=== PATIENT | male | born 1945 | race Caucasian/White ===

== ENCOUNTER 2022-11-07 12:06 | Outpatient (AMB) | payer MEDICARE, OTHER, SELFPAY ==
[2022-11-07 12:11] VITALS: BP 126/61; PULSE 67; BMI 35.0
--- NOTE | 2022-11-07 12:11 | A.OFFVIS_ITS ---
Intake Vital Signs 11/07/22 12:11 Height 5 ft 8 in Weight 230 lb BMI 35.0 BP 126/61 Blood Pressure Location Rt brachial Position Sitting Pulse 67 Intake Visit Reasons: Painful lump right arm, ? glass Intake Note: Patient here for non healing lesion on Rt forearm. Has been present for 3wks. Patient thinks there is a piece of glass embedded. Patient thinks glass has been there for 30yrs. No hx of skin ca. Ship Cleaner Required: No Accompanied by: Spouse Allergies No Known Allergies Allergy (Verified 11/07/22 12:14) HPI HPI Comments History of Present Illness Details Patient presents with for evaluation of a back of mid right forearm mass which is increasing in size, become more symptomatic. He wished to have excised. Patient has a very involved past medical history. Among other things his history of atrial fibrillation, and is on Eliquis for this. He also receives hemodialysis Saturday, Saturday, and Saturday via a left upper arm fistula. Chart was reviewed and patient evaluated [facility] Medical History (Updated 11/07/22 @ 12:19 by KIET Alvares) Congestive heart disease Dialysis complication DM type 2 (diabetes mellitus, type 2) Gallbladder calculus Kidney failure Low blood pressure Surgical History (Updated 11/07/22 @ 12:32 by Des Boland MD) History of tonsillectomy and adenoidectomy History of umbilical hernia repair Family History (Updated 11/07/22 @ 12:20 by KIET Alvares) Maternal Grandmother Pancreatic cancer Mother Diabetes type 2, controlled Social History (Updated 11/07/22 @ 12:21 by KIET Alvares) Alcohol intake: never Patient Tobacco Use Status: Never used Tobacco Physical Exam Vital Signs: Last Vital Signs Pulse 67 11/07/22 12:11 BP 126/61 11/07/22 12:11 BMI result Body Mass Index 35.0 Chest Other: Chest breath sounds bilaterally, HS 1 in 2 GI Other: Abdomen corpulent, soft, benign Extrem Other: Approximately 3 x 2 cm right midforearm 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 No axillary adenopathy. Left upper arm fistula with palpable thrill. Assessment & Plan Assessment & Plan (1) Skin neoplasm: Code(s): D49.2 - Neoplasm of unspecified behavior of bone, soft tissue, and skin Plan Risks, benefits, alternatives of wide local excision of right dorsal forearm tumor were reviewed the patient is included but not limited to bleeding, infection, recurrence, numbness, pain, scarring the patient wishes to proceed. All questions were answered. Arrangements will be made for this on non dialysis days, Saturday or . Will also have patient call his brokerage branch manager as will we regarding holding his Eliquis before the procedure. Coding Level of Care Code New Pt Level 4 (61323) Diagnoses Skin neoplasm D49.2
== END 2022-11-07 12:30 | disposition home or self-care (01) ==
PROVIDERS: PCP Internal Medicine; Visit Provider Surgery
DX: D49.2 Neoplasm of unspecified behavior of bone, soft tissue, and skin (principal)
CPT/HCPCS: 99204

== ENCOUNTER → 2022-11-07 12:06 | Outpatient (BNVA) | payer MEDICARE, OTHER, SELFPAY | PROVIDERS: PCP Internal Medicine; Visit Provider Surgery | DX: D49.2 Neoplasm of unspecified behavior of bone, soft tissue, and skin (principal) | CPT/HCPCS: 99202 ==

== ENCOUNTER 2022-11-20 07:29 | Day surgery (SDC) | payer MEDICARE, OTHER, SELFPAY ==
--- NOTE | 2022-11-19 09:45 | MHC.SHP ---
Pre-Procedural Eval Section A Date of Service: 11/19/22 The patient is an INPATIENT: No Changes since office visit: No Cold of Flu in the past 2 weeks, No New Medical Problems, No Changes in Medication and No Patient answered all questions The History & Physical has been completed within 30 days and I have reviewed it.: Yes Section B Chief Complaint: Neoplasm of unspecified behavior of bone, soft tis Allergies: Allergies Allergy/AdvReac Type Severity Reaction Status Date / Time No Known Allergies Allergy Verified 11/07/22 12:14 Plan I have reviewed the history and physical and performed a pertinent physical examination on my patient. No changes have occurred unless specified. Time Spent With Patient Time: Total time managing care of this patient today ____ minutes.
--- NOTE | 2022-11-19 09:47 | HO.ANESPROP2 ---
Documented by User: Terri Martínez NP 11/19/22 09:57 HPI - Anesthesia Eval Consult details Narrative: 77yo M for Right Wide Local Excision forearm Lipoma ESRD with HD on MWF Eliquis for afib (ok to hold per cardiology and renal) PMFSH Active Problems Active Problems: All Active Problems (Updated 11/07/22 @ 12:32 by Des Boland MD) Skin neoplasm (Acute) Past Medical History Medical History Afib Congestive heart disease Dialysis complication DM type 2 (diabetes mellitus, type 2) ESRD (end stage renal disease) Gallbladder calculus HLD (hyperlipidemia) HTN (hypertension) Kidney failure Low blood pressure NSVT (nonsustained ventricular tachycardia) ELIF (obstructive sleep apnea) Family History Family History Maternal Grandmother Pancreatic cancer Mother Diabetes type 2, controlled Surgical History Surgical History History of tonsillectomy and adenoidectomy History of umbilical hernia repair Social History Social History Alcohol intake: never Patient Tobacco Use Status: Never used Tobacco Advance Directives: No Advance Directives Information Provided: Yes Nutrition Risks: No Nutritional Risk Meds Allergies Allergy/AdvReac Type Severity Reaction Status Date / Time No Known Allergies Allergy Verified 11/20/22 08:07 Active Medications: Current Medications Cefazolin Sodium/Dextrose (Ancef) 2 gm in 50 mls @ 100 mls/hr IV PREOP ONE Stop: 11/19/22 10:14 Home Medications Medication Instructions Recorded Confirmed Last Taken Type apixaban 2.5 mg tablet (Eliquis) 2.5 mg PO BID 11/07/22 11/20/22 11/17/22 History atorvastatin 40 mg tablet 40 mg PO DAILY 11/07/22 11/20/22 Unknown History glipizide 2.5 mg tablet, extended 2.5 mg PO DAILY 11/07/22 11/20/22 Unknown History release 24 hr glucosamine-chondroitin 250 mg-200 2 tab PO TID 11/07/22 11/20/22 Unknown History mg tablet (Osteo Bi-Flex) levothyroxine 75 mcg capsule 75 mcg PO DAILY 11/07/22 11/20/22 11/20/22 History lidocaine 4 % topical cream 1 appl topical BID 11/07/22 11/20/22 Unknown History melatonin 5 mg capsule mg PO 11/07/22 Unknown History midodrine 5 mg tablet 5 mg PO TID 11/07/22 11/20/22 Unknown History sevelamer HCl 400 mg tablet 400 mg PO TID 11/07/22 11/20/22 Unknown History Exam Exam Date and Time: November 19, 2022 0947 Narrative Narrative: Holter 09/2022 NSR with SB. First deg AV block. Rare PACs. Freq PVCs with rare vent bi/trigeminy. No pauses ECHO 03/2022 LV mildly dilated. Borderline concentric LVH. Nml systolic function. No focal hypokinesis. LVEF 55-60%. Indeterminate diastolic function Mildly enlarged RV size. Nml RV systolic function. PASP 32 Severely dilated LA. Moderately dilated RA. No hemodynamically significant valve disease Asc aorta @ 3.9cm LVEF has improved c/w 08/2021 echo EKG 02/2022 afib @ 68 LAD ? Anterolat infarct Assessment and Plan Assessment Anesthesia Assessment: Chart Reviewed Documented by User: Libertad Tariq MD 11/20/22 08:29 [facility] Past Medical History Medical History Afib Congestive heart disease Dialysis complication DM type 2 (diabetes mellitus, type 2) ESRD (end stage renal disease) Gallbladder calculus HLD (hyperlipidemia) HTN (hypertension) Kidney failure Low blood pressure NSVT (nonsustained ventricular tachycardia) ELIF (obstructive sleep apnea) Family History Family History Maternal Grandmother Pancreatic cancer Mother Diabetes type 2, controlled Surgical History Surgical History History of tonsillectomy and adenoidectomy History of umbilical hernia repair History of Problems with Anesthesia: No Social History Social History Alcohol intake: never Patient Tobacco Use Status: Never used Tobacco Advance Directives: No Advance Directives Information Provided: Yes Nutrition Risks: No Nutritional Risk Meds Allergies Allergy/AdvReac Type Severity Reaction Status Date / Time No Known Allergies Allergy Verified 11/20/22 08:07 Home Medications Medication Instructions Recorded Confirmed Last Taken Type apixaban 2.5 mg tablet (Eliquis) 2.5 mg PO BID 11/07/22 11/20/22 11/17/22 History atorvastatin 40 mg tablet 40 mg PO DAILY 11/07/22 11/20/22 Unknown History glipizide 2.5 mg tablet, extended 2.5 mg PO DAILY 11/07/22 11/20/22 Unknown History release 24 hr glucosamine-chondroitin 250 mg-200 2 tab PO TID 11/07/22 11/20/22 Unknown History mg tablet (Osteo Bi-Flex) levothyroxine 75 mcg capsule 75 mcg PO DAILY 11/07/22 11/20/22 11/20/22 History lidocaine 4 % topical cream 1 appl topical BID 11/07/22 11/20/22 Unknown History melatonin 5 mg capsule mg PO 11/07/22 Unknown History midodrine 5 mg tablet 5 mg PO TID 11/07/22 11/20/22 Unknown History sevelamer HCl 400 mg tablet 400 mg PO TID 11/07/22 11/20/22 Unknown History Exam Airway Mallampati Class: III TM Dist: >3cm Neck ROM: Full Loose/Missing/Broken Teeth: No Heart: irreg irregular rhythm Lungs: CTA Assessment and Plan Assessment Anesthesia Assessment: Anesthesia Plan Discussed Final Anesthetic Review History of Problems with Anesthesia: No NPO: Yes ASA Class: IV Final Preanesthetic Review: Meds/Allgs Chart Reviewed, Consent Obtained/Reviewed and Anes Risks/Benef Reviewed Patient Risk: High Procedure Risk: Low Anesthetic Plan Anesthetic Plan: MAC: Disposition: Standard PACU
[2022-11-20 06:01] VITALS: BMI 35.0
[2022-11-20 07:51] LABS: Glucose, Whole Blood 118 mg/dL (60-115)
[2022-11-20 08:06] VITALS: BP 125/56; PULSE 77; RESP 18; TEMP 36.6; O2SAT 99
[2022-11-20] MEDS: 0.9 % Sodium Chloride 1,000 ML 50 ML IVCONT (08:10)
[2022-11-20 08:18] LABS: Anion Gap 20 (12-20); Carbon Dioxide 28 mmol/L (22-29); Chloride 99 mmol/L (96-108); Potassium 4.6 mmol/L (3.3-5.1); Sodium 142 mmol/L (135-145)
--- NOTE | 2022-11-20 09:11 | P.CONAN_ITS ---
[facility] Active Problems Active Problems: All Active Problems (Updated 11/07/22 @ 12:32 by Des Boland MD) Skin neoplasm (Acute) Past Medical History Medical History Afib Congestive heart disease Dialysis complication DM type 2 (diabetes mellitus, type 2) ESRD (end stage renal disease) Gallbladder calculus HLD (hyperlipidemia) HTN (hypertension) Kidney failure Low blood pressure NSVT (nonsustained ventricular tachycardia) ELIF (obstructive sleep apnea) Family History Family History Maternal Grandmother Pancreatic cancer Mother Diabetes type 2, controlled Surgical History Surgical History History of tonsillectomy and adenoidectomy History of umbilical hernia repair History of Problems with Anesthesia: No Social History Social History Alcohol intake: never Patient Tobacco Use Status: Never used Tobacco Advance Directives: No Advance Directives Information Provided: Yes Nutrition Risks: No Nutritional Risk Meds Allergies Allergy/AdvReac Type Severity Reaction Status Date / Time No Known Allergies Allergy Verified 11/20/22 08:07 Active Medications: Current Medications Acetaminophen (Acetaminophen 325 Mg Tablet) 650 mg PO ONCE PRN PRN Reason: Pain, Mild (Pain Scale 1-3) Fentanyl (Fentanyl Citrate/Pf 100 Mcg/2 Ml Vial) 25 mcg IVPUSH Q5M PRN; Protocol PRN Reason: Pain, Moderate(Pain Scale 4-6) Sodium Chloride (Ns) 1,000 mls @ 50 mls/hr IVCONT .Q20H [place] Last Admin: 11/20/22 08:10 Dose: 50 mls/hr Ondansetron HCl (Ondansetron Hcl 4 Mg/2 Ml Vial) 4 mg IVPUSH ONCE PRN PRN Reason: Nausea and Vomiting Home Medications Medication Instructions Recorded Confirmed Last Taken Type apixaban 2.5 mg tablet (Eliquis) 2.5 mg PO BID 11/07/22 11/20/22 11/17/22 History atorvastatin 40 mg tablet 40 mg PO DAILY 11/07/22 11/20/22 Unknown History glipizide 2.5 mg tablet, extended 2.5 mg PO DAILY 11/07/22 11/20/22 Unknown History release 24 hr glucosamine-chondroitin 250 mg-200 2 tab PO TID 11/07/22 11/20/22 Unknown History mg tablet (Osteo Bi-Flex) levothyroxine 75 mcg capsule 75 mcg PO DAILY 11/07/22 11/20/22 11/20/22 History lidocaine 4 % topical cream 1 appl topical BID 11/07/22 11/20/22 Unknown History melatonin 5 mg capsule mg PO 11/07/22 Unknown History midodrine 5 mg tablet 5 mg PO TID 11/07/22 11/20/22 Unknown History sevelamer HCl 400 mg tablet 400 mg PO TID 11/07/22 11/20/22 Unknown History Exam Exam Date and Time: November 20, 2022 0911 Height,Weight and Vital Signs: Height 5 ft 8 in Weight 104.326 kg Last Vital Signs Temp 97.9 F 11/20/22 08:06 Pulse 77 11/20/22 08:06 Resp 18 11/20/22 08:06 BP 125/56 L 11/20/22 08:06 Pulse Ox 99 11/20/22 08:06 O2 Del Method Room Air 11/20/22 08:06 Pertinent Lab Results Pertinent Lab Results: Laboratory Tests 11/20/22 11/20/22 07:43 07:45 Sodium 142 Potassium 4.6 Chloride 99 Carbon Dioxide 28 Anion Gap 20 POC Glucose 118 H Airway Mallampati Class: III TM Dist: >3cm Neck ROM: Limited Loose/Missing/Broken Teeth: No Assessment and Plan Final Anesthetic Review History of Problems with Anesthesia: No
[2022-11-20 09:42] VITALS: BP 108/26; PULSE 71; RESP 16; TEMP 36.8; O2SAT 98
--- NOTE | 2022-11-20 09:42 | P.OP_ITS ---
Operative Note Operative Note Date of Service: 11/20/22 Narrative: Preoperative diagnosis: [] Dorsum right mid forearm exophytic tumor Postop diagnosis: [] Same Procedure [] wide local excision tumor of forearm Surgeon: [] Krystian Telecommunications Manager: [] Type of Anesthesia: [] Mass Indication for surgery: [] Final specimen size measured approximately 10 x 5 cm, tag and sent to pathology for permanent specimen Findings: [] Patient brought to the operating room, placed on operative table supine position, after adequate level of MAC anesthesia was induced, the right forearm was appropriately positioned and the dorsum of the forearm was prepped and draped in usual sterile fashion. Proposed wound site was infiltrated with 1% lidocaine/0.5% Marcaine. Using a transverse bi- elliptical incision encompassing the mass in question to grossly clear margins, this carried down through skin, subcutaneous tissue, appropriately tagged, and undermined using Bovie and sent to pathology. Wound was irrigated and secured hemostasis after skin flaps were developed. Wound was closed in the following manner; interrupted inverted dermal 3-0 Vicryl sutures followed by Steri-Strips and sterile dressings were applied. Sponge, needle, and instrument counts were reported to be correct. Patient tolerated the procedure well and emerged anesthesia stable condition. EBL minimal
[2022-11-20 09:57] VITALS: BP 101/34; PULSE 69; RESP 16; TEMP 36.8; O2SAT 98
== END 2022-11-20 10:32 | disposition home or self-care (01) ==
PROVIDERS: Nurse Practitioner; PCP Internal Medicine; Visit Provider Surgery
PROC: (CPT 25071; principal; 2022-11-20 09:10)
DX: C44.622 Squamous cell carcinoma of skin of right upper limb, including shoulder (principal); I48.91 Unspecified atrial fibrillation; E11.22 Type 2 diabetes mellitus with diabetic chronic kidney disease; I13.11 Hypertensive heart and chronic kidney disease without heart failure, with stage 5 chronic kidney disease, or end stage renal disease; N18.6 End stage renal disease; Z99.2 Dependence on renal dialysis; G47.33 Obstructive sleep apnea (adult) (pediatric); I47.29 Other ventricular tachycardia; E78.5 Hyperlipidemia, unspecified; Z79.84 Long term (current) use of oral hypoglycemic drugs; Z79.01 Long term (current) use of anticoagulants; Z79.899 Other long term (current) drug therapy; Z87.891 Personal history of nicotine dependence
CPT/HCPCS: 25071; 36415; 80051; 82947; 88305; 88307; J0690; J1100; J1885; J2250; J2405; J2795; J3010

== ENCOUNTER → 2022-11-20 07:29 | Outpatient (BNV) | payer MEDICARE, OTHER, SELFPAY | PROVIDERS: PCP Internal Medicine; Visit Provider Surgery | DX: C44.622 Squamous cell carcinoma of skin of right upper limb, including shoulder (principal) | CPT/HCPCS: 11606 ==

== ENCOUNTER 2022-12-03 10:48 | Outpatient (AMB) | payer MEDICARE, OTHER, SELFPAY ==
[2022-12-03 10:53] VITALS: BP 112/57; PULSE 70
--- NOTE | 2022-12-03 10:53 | MHC.OFFVIS ---
Intake Vital Signs 12/03/22 10:53 Weight 230 lb BP 112/57 L Blood Pressure Location Rt brachial Position Sitting Pulse 70 Intake Visit Reasons: S/P WLE Rt. forearm tumor Intake Note: Patient here s/p exc on Rt forearm. Reports incision healing well. Denies bleeding. C/o itch along scar line. Patient c/o new growth on Rt wrist area. Denies pain or bleeding. 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 He has no wound issues or complaints. The pathology was reviewed with patient. Incidentally, patient points out that he has a new lesion involving the dorsum of his right hand he wishes to have evaluated. 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 GI Other: Abdomen corpulent, soft, benign Extrem Other: Left upper arm fistula. Right mid forearm incision clean dry intact healing very well. Distal forearm/hand exophytic lesion, very suggestive of a squamous cell carcinoma Assessment & Plan Assessment & Plan (1) Skin neoplasm: Code(s): D49.2 - Neoplasm of unspecified behavior of bone, soft tissue, and skin (2) Skin lesion of hand: Code(s): L98.9 - Disorder of the skin and subcutaneous tissue, unspecified Plan Risks, benefits, alternatives of excision of distal dorsal forearm/right hand lesion were reviewed with the patient's included but not limited to bleeding, infection, recurrence, numbness, pain, scarring damage to proceed. All questions were answered. Arrangements made for this. Patient receives dialysis Saturday so we will attempt an operative date either Saturday or for him. Patient is also on Eliquis which will be discontinued 2 days prior to the procedure. Coding Level of Care Code Est Pt Level 4 (16683) Global (66932) Diagnoses Skin neoplasm D49.2 Skin lesion of hand L98.9
== END 2022-12-03 11:04 | disposition home or self-care (01) ==
PROVIDERS: PCP Internal Medicine; Visit Provider Surgery
DX: D49.2 Neoplasm of unspecified behavior of bone, soft tissue, and skin (principal); L98.9 Disorder of the skin and subcutaneous tissue, unspecified
CPT/HCPCS: 99024; 99214

== ENCOUNTER → 2022-12-03 10:48 | Outpatient (BNVA) | payer MEDICARE, OTHER, SELFPAY | PROVIDERS: PCP Internal Medicine; Visit Provider Surgery | DX: D49.2 Neoplasm of unspecified behavior of bone, soft tissue, and skin (principal); L98.9 Disorder of the skin and subcutaneous tissue, unspecified; Z98.890 Other specified postprocedural states | CPT/HCPCS: 99212 ==

== ENCOUNTER 2022-12-20 10:44 | Day surgery (SDC) | payer MEDICARE, OTHER, SELFPAY ==
[2022-12-17 10:56] VITALS: BMI 35.0
--- NOTE | 2022-12-19 09:19 | P.CONAN_ITS ---
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) ELIF (obstructive sleep apnea) ESRD (end stage renal disease) NSVT (nonsustained ventricular tachycardia) HLD (hyperlipidemia) HTN (hypertension) Afib Congestive heart disease Dialysis complication Kidney failure Low blood pressure DM type 2 (diabetes mellitus, type 2) Gallbladder calculus Family History Family History Maternal Grandmother Pancreatic cancer Mother Diabetes type 2, controlled Surgical History Surgical History History of surgery History of umbilical hernia repair History of tonsillectomy and adenoidectomy History of Problems with Anesthesia: No Social History Social History Alcohol intake: never Patient Tobacco Use Status: Former Tobacco user Tobacco use type: Cigarette Smoked in Last 30 Days: No Use of substances other than those prescribed or required for medical reasons: No Are you DNR?: Yes Advance Directives: No Advance Directives Information Provided: Yes Meds Allergies Allergy/AdvReac Type Severity Reaction Status Date / Time No Known Allergies Allergy Verified 12/20/22 11:54 Home Medications Medication Instructions Recorded Confirmed Last Taken Type apixaban 2.5 mg tablet (Eliquis) 2.5 mg PO BID 11/07/22 12/20/22 12/17/22 History atorvastatin 40 mg tablet 40 mg PO DAILY 11/07/22 12/17/22 Unknown History glipizide 2.5 mg tablet, extended 2.5 mg PO DAILY 11/07/22 12/17/22 Unknown History release 24 hr glucosamine-chondroitin 250 mg-200 2 tab PO TID 11/07/22 12/17/22 Unknown History mg tablet (Osteo Bi-Flex) levothyroxine 75 mcg capsule 75 mcg PO DAILY 11/07/22 12/20/22 12/20/22 History lidocaine 4 % topical cream 1 appl topical BID 11/07/22 12/17/22 Unknown History melatonin 5 mg capsule 5 mg PO BEDTIME 11/07/22 12/17/22 Unknown History midodrine 5 mg tablet 5 mg PO TID 11/07/22 12/17/22 Unknown History sevelamer HCl 400 mg tablet 400 mg PO TID 11/07/22 12/17/22 Unknown History Exam Exam Date and Time: December 19, 2022918 Height,Weight and Vital Signs: Height 5 ft 8 in Weight 104.326 kg Narrative Narrative: Holter 09/2022 NSR with SB. First deg AV block. Rare PACs. Freq PVCs with rare vent bi/trigeminy. No pauses ECHO 03/2022 LV mildly dilated. Borderline concentric LVH. Nml systolic function. No focal hypokinesis. LVEF 55-60%. Indeterminate diastolic function Mildly enlarged RV size. Nml RV systolic function. PASP 32 Severely dilated LA. Moderately dilated RA. No hemodynamically significant valve disease Asc aorta @ 3.9cm LVEF has improved c/w 08/2021 echo EKG 02/2022 afib @ 68 LAD ? 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) ELIF (obstructive sleep apnea) ESRD (end stage renal disease) NSVT (nonsustained ventricular tachycardia) HLD (hyperlipidemia) HTN (hypertension) Afib Congestive heart disease Dialysis complication Kidney failure Low blood pressure DM type 2 (diabetes mellitus, type 2) Gallbladder calculus Family History Family History Maternal Grandmother Pancreatic cancer Mother Diabetes type 2, controlled Surgical History Surgical History History of surgery History of umbilical hernia repair History of tonsillectomy and adenoidectomy Social History Social History Alcohol intake: never Patient Tobacco Use Status: Former Tobacco user Tobacco use type: Cigarette Smoked in Last 30 Days: No Use of substances other than those prescribed or required for medical reasons: No Are you DNR?: Yes Advance Directives: No Advance Directives Information Provided: Yes Meds Allergies Allergy/AdvReac Type Severity Reaction Status Date / Time No Known Allergies Allergy Verified 12/20/22 11:54 Home Medications Medication Instructions Recorded Confirmed Last Taken Type apixaban 2.5 mg tablet (Eliquis) 2.5 mg PO BID 11/07/22 12/20/22 12/17/22 History atorvastatin 40 mg tablet 40 mg PO DAILY 11/07/22 12/17/22 Unknown History glipizide 2.5 mg tablet, extended 2.5 mg PO DAILY 11/07/22 12/17/22 Unknown History release 24 hr glucosamine-chondroitin 250 mg-200 2 tab PO TID 11/07/22 12/17/22 Unknown History mg tablet (Osteo Bi-Flex) levothyroxine 75 mcg capsule 75 mcg PO DAILY 11/07/22 12/20/22 12/20/22 History lidocaine 4 % topical cream 1 appl topical BID 11/07/22 12/17/22 Unknown History melatonin 5 mg capsule 5 mg PO BEDTIME 11/07/22 12/17/22 Unknown History midodrine 5 mg tablet 5 mg PO TID 11/07/22 12/17/22 Unknown History sevelamer HCl 400 mg tablet 400 mg PO TID 11/07/22 12/17/22 Unknown History Exam Airway Mallampati Class: III TM Dist: >3cm Neck ROM: Full Loose/Missing/Broken Teeth: No Heart: irreg irregular rhythm Lungs: CTA Assessment and Plan Assessment Anesthesia Assessment: Anesthesia Plan Discussed Final Anesthetic Review NPO: Yes ASA Class: III Final Preanesthetic Review: Meds/Allgs Chart Reviewed, Consent Obtained/Reviewed and Anes Risks/Benef Reviewed Patient Risk: Intermediate Procedure Risk: Low Anesthetic Plan Anesthetic Plan: MAC: Disposition: Standard PACU
--- NOTE | 2022-12-20 06:08 | MHC.SHP ---
Pre-Procedural Eval Section A Date of Service: 12/20/22 The patient is an INPATIENT: No Changes since office visit: No Cold of Flu in the past 2 weeks, No New Medical Problems, No Changes in Medication and No Patient answered all questions The History & Physical has been completed within 30 days and I have reviewed it.: Yes Section B Chief Complaint: Disorder of the skin and subcutaneous tissue, unsp Allergies: Allergies Allergy/AdvReac Type Severity Reaction Status Date / Time No Known Allergies Allergy Verified 12/03/22 10:55 Plan I have reviewed the history and physical and performed a pertinent physical examination on my patient. No changes have occurred unless specified. Time Spent With Patient Time: Total time managing care of this patient today ____ minutes.
[2022-12-20 11:33] LABS: Anion Gap 19 (12-20); Carbon Dioxide 24 mmol/L (22-29); Chloride 100 mmol/L (96-108); Potassium 4.8 mmol/L (3.3-5.1); Sodium 138 mmol/L (135-145)
[2022-12-20 11:36] VITALS: BP 124/46; PULSE 73; RESP 18; TEMP 36.6; O2SAT 98; BMI 35.0
[2022-12-20 11:50] LABS: Glucose, Whole Blood 107 mg/dL (60-115)
[2022-12-20] MEDS: 0.9 % Sodium Chloride 1,000 ML 50 ML IVCONT (12:28)
--- NOTE | 2022-12-20 13:06 | P.OP_ITS ---
Operative Note Operative Note Date of Service: 12/20/22 Narrative: Preoperative diagnosis: [] Dorsum right hand tumor/growth Postop diagnosis: [] same Procedure [] wide local excision dorsum right hand tumor Surgeon: [] Krystian Grinding Wheel Operator: [] Type of Anesthesia: [] MAC Indication for surgery: [] final specimen size of 4 x 2.5 cm to grossly clear margins Findings: [] patient brought to the operating room, placed on the operative table in supine position, after adequate level of MAC anesthesia was induced, dorsum of right hand was prepped and draped in usual sterile fashion. Proposed incision site was infiltrated 1% lidocaine/ 0.5% Marcaine and a transverse bi- elliptical incision was made around the lesion in question to grossly clear margins with final dimensions as described above and carried through skin, subcutaneous tissue, and undermined using Bovie. Specimen was tagged sent to pathology for permanent specimen.Skin flaps were developed using Bovie and wound was irrigated, secured hemostasis, and closed using interrupted inverted dermal 3-0 Vicryl sutures followed by Steri-Strips and sterile dressings. Sponge, needle, and instrument counts reported correct. Patient tolerated procedure well and emerged anesthesia stable condition. EBL minimal
[2022-12-20 13:10] VITALS: BP 123/33; PULSE 61; RESP 18; TEMP 36.1; O2SAT 99
[2022-12-20 13:25] VITALS: BP 116/37; PULSE 63; RESP 16; O2SAT 99
[2022-12-20 13:40] VITALS: BP 128/29; PULSE 63; RESP 16; O2SAT 99
[2022-12-20 13:55] VITALS: BP 117/34; PULSE 62; RESP 16; O2SAT 99
[2022-12-20 14:10] VITALS: BP 120/33; PULSE 69; RESP 16; TEMP 36.1; O2SAT 99
== END 2022-12-20 14:35 | disposition home or self-care (01) ==
PROVIDERS: Nurse Practitioner; PCP Internal Medicine; Visit Provider Surgery
PROC: (CPT 11624; principal; 2022-12-20 13:00)
DX: C44.622 Squamous cell carcinoma of skin of right upper limb, including shoulder (principal); I48.91 Unspecified atrial fibrillation; E11.22 Type 2 diabetes mellitus with diabetic chronic kidney disease; I13.2 Hypertensive heart and chronic kidney disease with heart failure and with stage 5 chronic kidney disease, or end stage renal disease; I50.9 Heart failure, unspecified; N18.6 End stage renal disease; Z99.2 Dependence on renal dialysis; Z87.891 Personal history of nicotine dependence; Z79.84 Long term (current) use of oral hypoglycemic drugs; Z79.01 Long term (current) use of anticoagulants; Z79.899 Other long term (current) drug therapy; Z98.890 Other specified postprocedural states
CPT/HCPCS: 11624; 36415; 80051; 82947; 88305; J0690; J2250; J2795; J3010

== ENCOUNTER → 2022-12-20 10:44 | Outpatient (BNV) | payer MEDICARE, OTHER, SELFPAY | PROVIDERS: PCP Internal Medicine; Visit Provider Surgery | DX: C44.622 Squamous cell carcinoma of skin of right upper limb, including shoulder (principal) | CPT/HCPCS: 11624 ==

== ENCOUNTER 2023-01-29 09:56 | Outpatient (REF) | payer MEDICARE, OTHER, SELFPAY | END 2023-01-29 09:57 | disposition home or self-care (01) | LOC: HO.LNP 09:56 | PROVIDERS: PCP Internal Medicine; Visit Provider Surgery | DX: C44.602 Unspecified malignant neoplasm of skin of right upper limb, including shoulder (principal) | CPT/HCPCS: 11602; 88305; 99212 ==

== ENCOUNTER 2023-01-29 09:56 | Outpatient (AMB) | payer MEDICARE, OTHER, SELFPAY ==
--- NOTE | 2023-01-29 10:27 | A.OFFVIS_ITS ---
Intake Vital Signs 01/29/23 10:28 BP 122/66 Blood Pressure Location Rt brachial Position Sitting Pulse 66 Intake Visit Reasons: S/P wide local excision RT hand lesion Intake Note: Patient following up on rt hand exc. Reports scar healed well. C/o new lesion on Rt wrist. Has been present for a month. C/o enlarging and tender to touch. Separations Scientist Required: No Accompanied by: Spouse Allergies No Known Allergies Allergy (Verified 01/29/23 10:29) Medication List - Last Reconciled 01/29/23 by Des Boland MD apixaban (Eliquis) 2.5 mg PO BID atorvastatin 40 mg PO DAILY glipizide ER 2.5 mg PO DAILY glucosamine-chondroitin 250-200 mg (Osteo Bi-Flex) 2 tabs PO TID levothyroxine 75 mcg PO DAILY lidocaine 4% 1 appl topical BID melatonin 5 mg PO BEDTIME midodrine 5 mg PO TID sevelamer HCl 400 mg PO TID HPI HPI Comments History of Present Illness Details 1. Patient presents for follow-up status post excision right hand skin/squamous cell cancer. He has no wound issues or complaints. Pathology was reviewed and margins clear. 2. Patient has a new dorsum of right tsai d squamous cell lesion measuring approximately 2 x 1 cm. His increasing size, become more symptomatic. He wished to have it excised. 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) ELIF (obstructive sleep apnea) ESRD (end stage renal disease) NSVT (nonsustained ventricular tachycardia) HLD (hyperlipidemia) HTN (hypertension) Afib Congestive heart disease Dialysis complication Kidney failure Low blood pressure DM type 2 (diabetes mellitus, type 2) Gallbladder calculus Surgical History History of surgery History of umbilical hernia repair History of tonsillectomy and adenoidectomy Family History Maternal Grandmother Pancreatic cancer Mother Diabetes type 2, controlled Social History Alcohol intake: never Patient Tobacco Use Status: Former Tobacco user Tobacco use type: Cigarette Physical Exam Vital Signs: Last Vital Signs Pulse 66 01/29/23 10:28 BP 122/66 01/29/23 10:28 Skin Other: Dorsum right hand 2 x 1 cm mass consistent with a squamous cell carcinoma, similar to his other such lesions. Office Procedures Excision Details: Risks, benefits, alternatives of excision of dorsal left hand squamous cell carc inoma lesion were reviewed with the patient included but not limited to bleeding, infection, recurrence, numbness, pain, scarring the patient was to proceed. All questions were answered. Consent was signed. After appropriate positioning, patient underwent 1% lidocaine and Betadine prep and a transverse bi- elliptical incision was made around the lesion in question to grossly clear margins. Margins were tagged (long stitch superior, double stitch lateral) lesion measured approximately 3 x 2 cm. Wounds irrigated, secured hemostasis, and closed using running subcuticular 3-0 Vicryl suture followed by Steri-Strips and sterile dressings and a John wrap. Patient tolerated procedure well.. 01539-Fnedflhb scalp/neck/hands/feet/genitalia 1.1cm-2cm Procedure code (CPT) selection complete Office Meds lidocaine 1 %-epinephrine 1:100,000 injection solution Performing Provider: Des Boland MD [place] [facility] [place] [facility] Administered by: Des Boland MD on 01/29/23 10:30 Dose Route Admin Location Dispensed Lot Number Expiration Date [facility] Director Of Payroll 10 mL Infiltration 10 mL Assessment & Plan Assessment & Plan (1) Skin neoplasm: Code(s): D49.2 - Neoplasm of unspecified behavior of bone, soft tissue, and skin Plan: Patient and have been given local instructions including elevation, ice pack, may shower in 2 days removing outside dressing. Patient has a small but nonetheless potential risk of bleeding secondary to his Eliquis but at completion of procedure the wound was dry and John wrap was placed. All qu estions were answered. He will see me in a proximal weeks time or p.r.n.. Orders: Orders AMB Excision Today D49.2 - Neoplasm of unspecified behavior of bone, soft tissue, and skin Coding Level of Care Code Est Pt Level 5 (67875) Diagnoses Skin neoplasm D49.2 CPT Codes Scalp/Neck/Hands/Feet/Genetalia - CPT: 35824-Xzydmtme scalp/neck/hands/feet/genitalia 1.1cm-2cm ([id number])
[2023-01-29 10:28] VITALS: BP 122/66; PULSE 66
== END 2023-01-29 10:29 | disposition home or self-care (01) ==
PROVIDERS: PCP Internal Medicine; Visit Provider Surgery
DX: D49.2 Neoplasm of unspecified behavior of bone, soft tissue, and skin (principal); C44.92 Squamous cell carcinoma of skin, unspecified
CPT/HCPCS: 11602; 99214

== ENCOUNTER 2023-02-08 09:38 | Outpatient (AMB) | payer MEDICARE, OTHER, SELFPAY ==
[2023-02-08 09:48] VITALS: BP 116/58; PULSE 75
--- NOTE | 2023-02-08 09:48 | MHC.OFFVIS ---
Intake Vital Signs 02/08/23 09:48 Weight 239 lb BP 116/58 L Blood Pressure Location Rt brachial Position Sitting Pulse 75 Intake Visit Reasons: 1 1/2 wk follow up WLE RT hand lesion Intake Note: Patient here s/p exc on Rt ant wrist. Reports incision healing well. Denies bleeding or oozing. 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 He has no wound issues or complaints. Pathology was reviewed. 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) ELIF (obstructive sleep apnea) ESRD (end stage renal disease) NSVT (nonsustained ventricular tachycardia) HLD (hyperlipidemia) HTN (hypertension) Afib Congestive heart disease Dialysis complication Kidney failure Low blood pressure DM type 2 (diabetes mellitus, type 2) Gallbladder calculus Surgical History Hx of surgical procedure History of surgery History of umbilical hernia repair History of tonsillectomy and adenoidectomy Family History Maternal Grandmother Pancreatic cancer Mother Diabetes type 2, controlled Social History Alcohol intake: never Patient Tobacco Use Status: Former Tobacco user Tobacco use type: Cigarette Physical Exam Vital Signs: Last Vital Signs Pulse 75 02/08/23 09:48 BP 116/58 L 02/08/23 09:48 Extrem Other: Dorsum right hand incision is well healed. Assessment & Plan Assessment & Plan (1) Skin neoplasm: Code(s): D49.2 - Neoplasm of unspecified behavior of bone, soft tissue, and skin Plan Patient and have been given local instructions, and will follow-up p.r.n. Coding Level of Care Code Global (25835) Diagnoses Skin neoplasm D49.2
== END 2023-02-08 10:08 | disposition home or self-care (01) ==
PROVIDERS: PCP Internal Medicine; Visit Provider Surgery
DX: D49.2 Neoplasm of unspecified behavior of bone, soft tissue, and skin (principal)
CPT/HCPCS: 99024

== ENCOUNTER → 2023-02-08 09:38 | Outpatient (BNVA) | payer MEDICARE, OTHER, SELFPAY | PROVIDERS: PCP Internal Medicine; Visit Provider Surgery ==

== ENCOUNTER 2023-05-17 09:11 | Outpatient (REF) | payer MEDICARE, OTHER, SELFPAY ==
--- NOTE | ~2023-05-17 | XR_ITS ---
EXAMINATION: XR CHEST CLINICAL INFORMATION: Chronic heart failure COMPARISON: None available. TECHNIQUE: 2 views of the chest were obtained. FINDINGS: Interstitial prominence. Prominence of the right hilum which may reflect prominence of the pulmonary vasculature though lymphadenopathy in this region is not excluded. No pneumothorax. Trachea is midline. Cardiomediastinal silhouette is not enlarged. No large pleural effusion. Degenerative changes of the thoracolumbar spine. Soft tissues are unremarkable. XR/XR chest 2V IMPRESSION: 1. Interstitial prominence. 2. Prominence of the right hilum which may reflect prominence of the pulmonary vasculature though lymphadenopathy in this region is not excluded.
== END 2023-05-17 09:12 | disposition home or self-care (01) ==
LOC: HO.XRAY 09:11
PROVIDERS: PCP Internal Medicine
DX: I48.0 Paroxysmal atrial fibrillation (principal); I50.32 Chronic diastolic (congestive) heart failure
CPT/HCPCS: 71046

== ENCOUNTER 2023-11-22 10:06 | Emergency (ER) | payer MEDICARE, OTHER, SELFPAY ==
[2023-11-22 10:21] VITALS: BP 109/59; PULSE 92; RESP 18; TEMP 36.8; O2SAT 96; BMI 35.0
[2023-11-22] MEDS: Lidocaine HCl 1 % MPF 5 ML VIAL EPIDURAL (12:14)
--- NOTE | 2023-11-22 12:45 | ED.GENADULT ---
HPI - General Adult General Chief complaint: Extremity Injury, Lower Stated complaint: l leg lac Time Seen by Provider: 11/22/23 10:24 Source: patient, family and RN notes reviewed Mode of arrival: ambulatory Limitations: no limitations History of Present Illness ED Provider: Bharti Downey PA-C HPI narrative: This is a 78-year-old male who presents emergency department for evaluation of left leg laceration which occurred on Saturday. Patient states that while he was at dialysis he lacerated his lateral left leg. He states that he has been applying bandages, and butterfly sutures however states that this continues to bleed. He denies any fevers or chills. Patient reports that his last tetanus shot was within the last year. No other complaints or concerns at this time. MD complaint: Laceration left leg Onset (ago): day(s) Radiation: non-radiation Quality: aching Pain Consistency: constant Relieving factors: none Exacerbating factors: none Associated symptoms: denies other symptoms Treatments prior to arrival: none Related Data Home Medications ?Medication ?Instructions ?Recorded ?Confirmed apixaban 2.5 mg tablet (Eliquis) 2.5 mg PO BID 11/07/22 12/20/22 atorvastatin 40 mg tablet 40 mg PO DAILY 11/07/22 12/17/22 glipizide 2.5 mg tablet, extended 2.5 mg PO DAILY 11/07/22 12/17/22 release 24 hr glucosamine-chondroitin 250 mg-200 2 tab PO TID 11/07/22 12/17/22 mg tablet (Osteo Bi-Flex) lidocaine 4 % topical cream 1 appl topical BID 11/07/22 12/17/22 melatonin 5 mg capsule 5 mg PO BEDTIME 11/07/22 12/17/22 midodrine 5 mg tablet 5 mg PO TID 11/07/22 12/17/22 sevelamer HCl 400 mg tablet 400 mg PO TID 11/07/22 12/17/22 Previous Rx's ?Medication ?Instructions ?Recorded levothyroxine 75 mcg capsule 75 mcg PO DAILY #90 caps 08/12/23 cephalexin 250 mg capsule 250 mg PO DAILY 5 days #5 caps 11/22/23 Allergies Allergy/AdvReac Type Severity Reaction Status Date / Time oxycodone AdvReac Gastrointestinal Verified 11/22/23 10:22 Upset Review of Systems Review of Systems: Yes all other systems are reviewed and are negative Constitutional: Constitutional: Reports as per [facility] Past Medical History Attestation statement: The following information was validated with the patient. 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) ELIF (obstructive sleep apnea) ESRD (end stage renal disease) NSVT (nonsustained ventricular tachycardia) HLD (hyperlipidemia) HTN (hypertension) Afib Congestive heart disease Dialysis complication Kidney failure Low blood pressure DM type 2 (diabetes mellitus, type 2) Gallbladder calculus Surgical History Hx of surgical procedure History of surgery History of umbilical hernia repair History of tonsillectomy and adenoidectomy Family History Family History Maternal Grandmother Pancreatic cancer Mother Diabetes type 2, controlled Social History Social History Alcohol intake: never Patient Tobacco Use Status: Former Tobacco user Tobacco use type: Cigarette Advance Directives: Yes Advance Directives Information Provided: Yes Advance Directives on File: No Physical Exam ED Vital Signs: Vital Signs - 24 hr 11/22/23 10:21 Temperature 98.2 F Pulse Rate 92 Respiratory Rate 18 Blood Pressure 109/59 L Pulse Oximetry 96 Oxygen Delivery Method Room Air BMI result Body Mass Index 35.0 Const General: cooperative, comfortable and no acute distress Orientation/consciousness: patient oriented x3 Limitations: no limitations [facility] Head: Yes normal to inspection, Yes normocephalic and Yes atraumatic Ears: hearing grossly normal bilaterally General nose exam: Normal external nose present Face and sinus: Yes normal facial exam Mouth: Normal oral and palatal mucosa present, oropharynx normal and moist mucous membranes Throat: Yes posterior oropharynx normal Eyes General: appearance normal, both eyes and all related structures Eyelids: Yes eyelids normal Conjunctivae: conjunctivae normal Sclerae: sclerae normal Pupils: Equal, round and reactive pupils present EOM: EOMs intact bilaterally Neck Neck: Yes normal visual inspection, Yes full ROM and Yes no lymphadenopathy Lymphatic: no lymphadenopathy noted Chest Chest palpation & inspection: normal inspection of the chest Resp Effort & Inspection: normal respiratory effort and able to speak in complete sentences Auscultation: clear to auscultation bilaterally, no crackles, no rales, no rhonchi and no wheezes Cardio Rate: regular rate Rhythm: regular rhythm Heart sounds: S1 normal heart sound present and S2 normal heart sound present GI Inspection: Yes normal to inspection Skin Other: There is a 6 cm partial-thickness laceration/skin tear noted to the left lateral byrne, active bleeding noted. No surrounding erythema or warmth. General skin exam: no rashes or lesions noted Trauma: no lacerations or abrasions Wounds: no wounds Neuro General: patient oriented x3 and moves all extremities Cranial nerves: Yes Equal, round and reactive pupils present Extrem General: Yes normal to inspection Right upper extremity: normal to inspection Left upper extremity: normal to inspection Right lower extremity: normal to inspection Left lower extremity: normal to inspection Medications Administered Discontinued Medications Generic Name Dose Route Start Last Admin Trade Name Freq PRN Reason Stop Dose Admin Lidocaine HCl 5 ml 11/22/23 11:01 11/22/23 12:14 Lidocaine Hcl 1 % Mpf 5 Ml Vial EPIDURAL 11/22/23 11:02 5 ml ONCE ONE Administration Lidocaine HCl 5 ml 11/22/23 13:05 11/22/23 13:16 Lidocaine Hcl 1 % Mpf 5 Ml Vial INFILTRATI 11/22/23 13:06 5 ml ONCE ONE Administration Lidocaine/Epinephrine 10 ml 11/22/23 10:54 11/22/23 11:11 Lidocaine Hcl 1%/Epi 1:100,000 30 Ml Vial INFILTRATI 11/22/23 10:55 Not Given ONCE ONE Lidocaine/Epinephrine 10 ml 11/22/23 10:58 11/22/23 11:12 Lidocaine Hcl 2% Pf/Epi 1:200 10 Ml Vial INFILTRATI 11/22/23 10:59 Not Given ONCE ONE Procedures Laceration Laceration 1: Site: lower extremity Side (If applicable): left Size (cm): 6 Description: linear Depth: simple, single layer Local Anesthetic: lidocaine 1% Amount of anesthesia used (mL): 4 Pre-repair: wound explored, irrigated extensively and deep structures intact Skin layer closed with: nylon Size (cm): 5-0 Number of sutures: 6 Technique: simple, interrupted Subcutaneous layer closed with: vicryl Medical Decision Making Medical Decision Making MDM Narrative: This is a 78-year-old male who presents emergency department complaints of left leg laceration x2 days. On arrival, vital signs within normal limits. He is a 6 cm L-shaped laceration noted to his left leg. This is 2-day-old therefore full wound closure would increased risk of infection. Wound was extensively cleansed with Betadine and saline. There is a small area that continues to bleed, hemostat was applied however hemostasis was not achieved therefore 6 sutures were applied to the wound. There is 1 figure-eight stitch present. Patient tolerated procedure well without any complications or concerns. Patient stable for discharge. Differential Diagnosis Differential Diagnoses: The differential diagnosis associated with the presentation includes Laceration, abrasion, contusion, Admission/Observation Consideration of admission/observation: Escalation of care including admission/observation considered Lab Data MDM Lab Attestation statement: I reviewed the patient's lab results. Radiology Impression Discussion of test interpretation with radiology: I have reviewed the radiologist's reading. External Record Review External record reviewed: Inpatient record, Office record, Outpatient record, Prior outpatient labs, Prior outpatient radiology, Primary care record and Outside ED record Discharge Plan Discharge Clinical Impression: Laceration of leg Patient Disposition: Home, Self-Care Instructions: Laceration (ED) Additional Instructions: Your seen in the emergency department after lacerating your left leg 2 days ago. You are unable to fully close this wound as this is an old wound. We are able to stop the bleeding using sutures. Please keep area clean and dry. I am placing you on antibiotics, please take prescribed antibiotic as directed. Please have sutures removed in 8-10 days. You may return here or follow-up with your PCP. Watch for any signs of infection including but not limited to increased redness, swelling, fevers or chills. Prescriptions: New cephalexin 250 mg capsule 250 mg PO DAILY 5 Days Qty: 5 0RF No Action levothyroxine 75 mcg capsule 75 mcg PO DAILY Qty: 90 3RF Eliquis 2.5 mg tablet 2.5 mg PO BID sevelamer HCl 400 mg tablet 400 mg PO TID Rx Instructions: must administer with a meal/food glipizide 2.5 mg tablet extended release 24hr 2.5 mg PO DAILY glucosamine-chondroitin [Osteo Bi-Flex] 250-200 mg tablet 2 tab PO TID Rx Instructions: give after food/meal melatonin 5 mg capsule 5 mg PO BEDTIME midodrine 5 mg tablet 5 mg PO TID Rx Instructions: do not give last dose of day after 6PM or within 4 hrs of bedtime lidocaine 4 % cream 1 appl topical BID atorvastatin 40 mg tablet 40 mg PO DAILY Print Language: [place]an
[2023-11-22] MEDS: Lidocaine HCl 1 % MPF 5 ML VIAL INFILTRATI (13:16)
[2023-11-22 14:06] VITALS: BP 116/43; PULSE 60; RESP 16; TEMP 36.8; O2SAT 97
[2023-11-22] MEDS: Bacitracin Oint 0.9 GM PACKET 1 APPL TOPICAL (14:07)
== END 2023-11-22 14:07 | disposition home or self-care (01) ==
PROVIDERS: Emergency Provider Emergency Medicine; PCP Internal Medicine
DX: S81.812A Laceration without foreign body, left lower leg, initial encounter (principal); W22.8XXA Striking against or struck by other objects, initial encounter; Y93.89 Activity, other specified; Y92.538 Other ambulatory health services establishments as the place of occurrence of the external cause; Y99.9 Unspecified external cause status; I48.91 Unspecified atrial fibrillation; Z79.01 Long term (current) use of anticoagulants
CPT/HCPCS: 12032; 99282; 99284

== ENCOUNTER 2024-01-03 16:21 | Observation (INO) | payer MEDICARE, OTHER, SELFPAY ==
--- NOTE | 2024-01-03 | ECG_ITS ---
Test Reason : weakness Blood Pressure : / mmHG Vent. Rate : 060 BPM Atrial Rate : 060 BPM P-R Int : 214 ms QRS Dur : 108 ms QT Int : 576 ms P-R-T Axes : 076 002 068 degrees QTc Int : 576 ms Sinus rhythm with 1st degree A-V block Low voltage QRS Cannot rule out Anterior infarct , age undetermined Abnormal ECG No previous ECGs available Referred By: Joseph Hannah Electronically Signed By:KYLAH PRAKASH
--- NOTE | ~2024-01-03 | XR_ITS ---
EXAMINATION: XR CHEST CLINICAL INFORMATION: Shortness of breath. COMPARISON: Chest 05/17/2023 TECHNIQUE: Frontal view of the chest was obtained. FINDINGS: No significant abnormality is noted involving the heart, lungs, mediastinum, bony thorax or soft tissues. XR/XR chest 1V IMPRESSION: Unremarkable chest examination. Electronically signed by: Deandre Lunsford MD 01/03/2024 07:10 PM EDT RP
--- NOTE | ~2024-01-03 | XR_ITS ---
EXAMINATION: CR LEFT KNEE. CLINICAL INFORMATION: Fall. COMPARISON: None available. TECHNIQUE: 2 views of the left knee. FINDINGS: Diffuse osteopenia. No acute fracture or dislocation. Moderate size suprapatellar knee joint effusion. Severe degenerative change in the patellofemoral and medial femoral compartments with near complete loss of the joint space height, spurring, and cystic change seen. There is moderate narrowing of the lateral femoral compartment joint space height. There may be subtle chondrocalcinosis in the lateral femoral compartment. Prominent arterial vascular calcifications are seen. XR/XR knee LT 2V IMPRESSION: 1. Osteopenia. No acute fracture or dislocation. 2. Moderate-sized suprapatellar knee joint effusion. 3. 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 Electronically signed by: Nickie Cordova MD 01/03/2024 11:32 PM EDT
[2024-01-03 16:45] VITALS: BP 115/41; BP 122/60; PULSE 60; PULSE 72; RESP 18; TEMP 36.7; O2SAT 93; O2SAT 97; BMI 35.9
--- NOTE | 2024-01-03 16:52 | ED_ITS ---
HPI - Weakness General Chief complaint: Weakness Stated complaint: A&Ox4, weak, cough, poor PO intake, COVID Time Seen by Provider: 01/03/24 16:51 Source: patient and family Mode of arrival: EMS Limitations: no limitations History of Present Illness ED Provider: [facility] Narrative: Patient's history of end-stage renal disease on hemodialysis had a recent COVID 2 weeks since then been feeling weak tired coughing today patient went for dialysis was almost fell slumped down while getting into the car and out been not eating well no head strike or loss of consciousness patient not eating much since had COVID patient complaining of left knee pain after the near fall with swelling of the knee Related Data Home Medications ?Medication ?Instructions ?Recorded ?Confirmed apixaban 2.5 mg tablet (Eliquis) 2.5 mg PO BID 11/07/22 01/03/24 glucosamine-chondroitin 250 mg-200 1 tab PO TID 11/07/22 01/03/24 mg tablet (Osteo Bi-Flex) lidocaine 4 % topical cream 1 appl topical BID 11/07/22 12/17/22 melatonin 5 mg capsule 5 mg PO BEDTIME 11/07/22 12/17/22 atorvastatin 20 mg tablet 20 mg PO BEDTIME 01/03/24 01/03/24 bupropion HCl 150 mg 24 hr tablet, 150 mg PO BEDTIME 01/03/24 01/03/24 extended release sevelamer HCl 800 mg tablet 1,600 mg PO TID 01/03/24 01/03/24 torsemide 20 mg tablet 40 mg PO DIRECTED 01/03/24 01/03/24 Previous Rx's ?Medication ?Instructions ?Recorded levothyroxine 75 mcg capsule 75 mcg PO DAILY #90 caps 08/12/23 cephalexin 250 mg capsule 250 mg PO DAILY 5 days #5 caps 11/22/23 amiodarone 200 mg tablet 100 mg (1/2 x 200 mg) PO DAILY 90 12/11/23 days #45 tabs glipizide 2.5 mg tablet, extended 2.5 mg PO DAILY #90 tabs 12/11/23 release 24 hr midodrine 5 mg tablet 10 mg (2 x 5 mg) PO .COMPLEX #72 12/11/23 tabs Allergies Allergy/AdvReac Type Severity Reaction Status Date / Time oxycodone AdvReac Gastrointestinal Verified 01/03/24 16:46 Upset Review of Systems 2 Review of Systems: Yes all other systems are reviewed and are negative [facility] Past Medical History 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) ELIF (obstructive sleep apnea) ESRD (end stage renal disease) NSVT (nonsustained ventricular tachycardia) HLD (hyperlipidemia) HTN (hypertension) Afib Congestive heart disease Dialysis complication Kidney failure Low blood pressure DM type 2 (diabetes mellitus, type 2) Gallbladder calculus Surgical History Hx of surgical procedure History of surgery History of umbilical hernia repair History of tonsillectomy and adenoidectomy Family History Family History Maternal Grandmother Pancreatic cancer Mother Diabetes type 2, controlled Social History Social History Alcohol intake: former Patient Tobacco Use Status: Former Tobacco user Tobacco use type: Cigarette Smoked in Last 30 Days: No Use of substances other than those prescribed or required for medical reasons: No Advance Directives: No Advance Directives Information Provided: No Physical Exam 2 Vital Signs: Vital Signs: Last Vital Signs Temp 98.1 F 01/03/24 20:45 Pulse 70 01/03/24 20:45 Resp 18 01/03/24 20:45 BP 117/52 L 01/03/24 20:45 Pulse Ox 93 01/03/24 20:45 O2 Del Method Room Air 01/03/24 20:45 BMI result Body Mass Index 35.9 Appearance: Alert. Oriented X3. Lethargic No acute distress. Eyes: PERRLA, No Nystagmus ENT: Pharynx normal. Oral Mucosa moist Neck: Normal inspection. Neck supple. CVS: Normal heart rate and rhythm. Pulses normal. Respiratory: No respiratory distress. Equal air entry bilateral, bilateral conducted sounds+ Abdomen: Soft and nontender. Bowel sounds are present, no mass palpable, no CVA tenderness Skin: Skin warm and dry. Normal skin color. Normal skin turgor. Extremities: No lower extremity edema. No calf tenderness left knee swollen Neuro: Oriented X 3. No motor deficit. No sensory deficit.No cerebellar signs , cranial nerves II-XII intact Medications Administered Generic Name Dose Route Start Last Admin Trade Name Freq PRN Reason Stop Dose Admin Bupropion HCl 150 mg 01/03/24 23:00 01/03/24 23:28 Bupropion Hcl Xl 150 Mg Tab.Er.24h PO 150 mg BEDTIME [place] Administration Sevelamer Carbonate 1,600 mg 01/03/24 23:00 01/03/24 23:28 Sevelamer Carbonate Tablet 800 Mg Tablet PO 1,600 mg TID [place] Administration Discontinued Medications Generic Name Dose Route Start Last Admin Trade Name Freq PRN Reason Stop Dose Admin Cefuroxime Axetil 500 mg 01/03/24 19:22 01/03/24 19:50 Cefuroxime Axetil 500 Mg Tablet PO 01/03/24 19:23 500 mg ONCE ONE Administration Albuterol Sulfate 2.5 mg/ 0 mg 01/03/24 19:22 01/03/24 19:47 Albuterol/Ipratropium 3 ml INHALE 01/03/24 19:23 3.5 dose ONCE ONE Administration Guaifenesin/Codeine Phosphate 10 ml 01/03/24 19:22 01/03/24 19:50 Guaifen/Codeine Sf 200/20/10ml 10 Ml Liquid PO 01/03/24 19:23 10 ml NOW STA Administration Nystatin 1 appl 01/03/24 18:34 01/03/24 18:44 Nystatin Powder 15 Gm Bottle TOPICAL 01/03/24 18:35 1 appl ONCE ONE Administration Protocol Medical Decision Making Medical Decision Making [facility] Narrative: Patient with COVID chest x-ray negative but does have a cough with mucoid phlegm will start on Ceftin for bronchitis patient is still feeling very weak will plan for rehab placement as can not take care of him Differential Diagnosis Differential Diagnoses: The differential diagnosis associated with the presentation includes Admission/Observation Consideration of admission/observation: Escalation of care including admission/observation considered Lab Data [facility] Lab Attestation statement: I reviewed the patient's lab results. 01/03/24 17:49 01/03/24 17:49 Labs: Lab Results 01/03/24 01/03/24 Range/Units 17:49 18:10 WBC 12.1 H (4.8-10.8) X10*3/uL RBC 2.57 L (4.60-5.80) X10*6/uL Hgb 9.0 L (14.0-18.0) g/dl Hct 28.5 L (42.0-52.0) % MCV 110.9 H (80.0-98.0) fL MCH 35.0 H (27.0-33.0) pg MCHC 31.6 (31.0-36.0) g/dl RDW 14.2 (11.0-16.0) % Plt Count 113 L (160-400) X10*3/uL MPV 9.1 L (9.4-12.4) fL Immature Gran % (Auto) 0.8 H (0.0-0.4) % Neut % (Auto) 85.0 H (45-73) % Lymph % (Auto) 5.5 L (20-40) % [place] % (Auto) 7.9 (2-11) % Eos % (Auto) 0.6 (0-4) % Baso % (Auto) 0.2 (0-2) % Lymph # (Auto) 0.7 L (1.2-4.9) X10*3/uL [place] # (Auto) 1.0 (0.1-1.2) X10*3/uL Eos # (Auto) 0.1 (0.0-0.4) X10*3/uL Baso # (Auto) 0.0 (0.0-0.2) X10*3/uL Abs Immat Gran (auto) 0.10 H (0.00-0.03) X10*3/uL Absolute Neuts (auto) 10.3 H (2.0-8.3) x10*3/uL Absolute Nucleated RBC 0.000 (0.0-0.012) X10*3/uL Nucleated RBC % (auto) 0.0 (0.0-0.2) /100WBC Sodium 143 (135-145) mmol/L Potassium 4.3 (3.3-5.1) mmol/L Chloride 103 (96-108) mmol/L Carbon Dioxide 28 (22-29) mmol/L Anion Gap 16 (12-20) BUN 34 H (9-16) mg/dL Creatinine 5.92 H* (0.5-1.4) mg/dL Estim Creat Clear Calc 12.2 Estimated GFR 9 Random Glucose 154 H (60-115) mg/dL Lactic Acid 1.2 (0.5-2.0) mmol/L Calcium 9.0 (8.4-10.2) mg/dL Magnesium 2.3 (1.6-2.6) mg/dL Total Bilirubin 0.4 (0.0-1.0) mg/dL AST 8 (5-37) U/L ALT 9 (0-40) U/L Alkaline Phosphatase 86 (39-117) U/L Total Protein 6.1 L (6.5-8.0) g/dL Albumin 3.2 L (3.5-5.0) g/dL COVID-19 (YG) Positive A (Negative) COVID-19 Clin Com See Note Independent Interpretation I performed an independent interpretation of an: EKG and Plain X-Ray Interpretation: Normal sinus rhythm heart rate 60 beats per minute first-degree heart block normal axis no acute STT wave changes no acute ischemia Radiology Impression Discussion of test interpretation with radiology: I have reviewed the radiologist's reading. Radiologist Impression: [place] [id number] XRay Report Signed Patient: Jacob Ruth MR#: [id number] : 1945 Acct:[id number] Age/Sex: 78 / M ADM Date: 01/03/24 Loc: .ED Attending Dr: Ordering Physician: Joseph Hannah MD Date of Service: 01/03/24 Procedure(s): XR knee LT 2V Accession Number(s): [id number] cc: Na White MD; Joseph Hannah MD~ EXAMINATION: CR LEFT KNEE. CLINICAL INFORMATION: Fall. COMPARISON: None available. TECHNIQUE: 2 views of the left knee. FINDINGS: Diffuse osteopenia. No acute fracture or dislocation. Moderate size suprapatellar knee joint effusion. Severe degenerative change in the patellofemoral and medial femoral compartments with near complete loss of the joint space height, spurring, and cystic change seen. There is moderate narrowing of the lateral femoral compartment joint space height. There may be subtle chondrocalcinosis in the lateral femoral compartment. Prominent arterial vascular calcifications are seen. XR/XR knee LT 2V IMPRESSION: 1. Osteopenia. No acute fracture or dislocation. 2. Moderate-sized suprapatellar knee joint effusion. 3. 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 Electronically signed by: Nickie Cordova MD 01/03/2024 11:32 PM EDT RP Discharge Plan Discharge Clinical Impression: COVID-19, Acute bronchitis, Contusion of knee, left Patient Disposition: Still a Patient Prescriptions: No Action levothyroxine 75 mcg capsule 75 mcg PO DAILY Qty: 90 3RF glipizide 2.5 mg tablet extended release 24hr 2.5 mg PO DAILY Qty: 90 3RF midodrine 5 mg tablet 10 mg PO .COMPLEX Qty: 72 0RF Rx Instructions: 10 mg orally prior to dialysis (3 times per week) amiodarone 200 mg tablet 100 mg PO DAILY 90 Days Qty: 45 3RF cephalexin 250 mg capsule 250 mg PO DAILY 5 Days Qty: 5 0RF atorvastatin 20 mg tablet 20 mg PO BEDTIME torsemide 20 mg tablet 40 mg PO DIRECTED Rx Instructions: non dialysis days, sun, tues, thurs, sat. sevelamer HCl 800 mg tablet 1,600 mg PO TID bupropion HCl 150 mg tablet extended release 24 hr 150 mg PO BEDTIME Eliquis 2.5 mg tablet 2.5 mg PO BID glucosamine-chondroitin [Osteo Bi-Flex] 250-200 mg tablet 1 tab PO TID Rx Instructions: give after food/meal melatonin 5 mg capsule 5 mg PO BEDTIME lidocaine 4 % cream 1 appl topical BID Print Language: Latvian
[2024-01-03 17:53] LABS: MANUAL DIFF FLAG NO
[2024-01-03 17:56] LABS: Basophils Percent Auto 0.2 % (0-2); Eosinophils Absolute Auto 0.1 X10*3/uL (0.0-0.4); Eosinophils Percent Auto 0.6 % (0-4); Hematocrit 28.5 % (42.0-52.0); Imm Gran Pct Auto 0.8 % (0.0-0.4); Lymphocytes Absolute Auto 0.7 X10*3/uL (1.2-4.9); Lymphocytes Percent Auto 5.5 % (20-40); Mean Corpuscular HGB Conc 31.6 g/dl (31.0-36.0); Mean Platelet Volume 9.1 fL (9.4-12.4); Monocytes Percent Auto 7.9 % (2-11); Neutrophils Absolute Auto 10.3 x10*3/uL (2.0-8.3); Platelet Count 113 X10*3/uL (160-400); Red Blood Count 2.57 X10*6/uL (4.60-5.80); Red Cell Distribution Width 14.2 % (11.0-16.0); White Blood Count 12.1 X10*3/uL (4.8-10.8)
[2024-01-03 18:04] LABS: Mean Corpuscular Volume 110.9 fL (80.0-98.0)
[2024-01-03 18:12] LABS: Alanine Aminotransferase 9 U/L (0-40); Albumin Level 3.2 g/dL (3.5-5.0); Alkaline Phosphatase 86 U/L (39-117); Anion Gap 16 (12-20); Aspartate Amino Transferase 8 U/L (5-37); Bilirubin Total 0.4 mg/dL (0.0-1.0); Blood Urea Nitrogen 34 mg/dL (9-16); Carbon Dioxide 28 mmol/L (22-29); Chloride 103 mmol/L (96-108); Creatinine Clr Calc Pharmacy 12.2; Estimated Glomerular Filt Rate 9; Glucose Random 154 mg/dL (60-115); Magnesium 2.3 mg/dL (1.6-2.6); Potassium 4.3 mmol/L (3.3-5.1); Sodium 143 mmol/L (135-145); Total Protein 6.1 g/dL (6.5-8.0)
[2024-01-03 18:13] LABS: Lactic Acid 1.2 mmol/L (0.5-2.0)
[2024-01-03 18:27] VITALS: BP 114/46; PULSE 60; RESP 20; TEMP 37.7; O2SAT 95
[2024-01-03 18:28] LABS: COVID-19 Test Positive (Negative); IDNOW Serial# 152EDE1D
--- NOTE | 2024-01-03 18:28 | MHC.EDTECH ---
Patient was biba from home ,vitals taken ,ekg done and was read by Provider ,Patient was change into hospital attire ,and hooked up to surveillance monitor ,Patient 2 nd set of blood culture drawn and covid swab collected and sent to lab ,JULIA Arce is aware that Patient has fungal rash between belly folds and underneath breast ,Patient was reposition and boosted up in bed ,Patient at bedside ,call cottrell within Pt reach .
[2024-01-03] MEDS: Nystatin Powder 15 GM BOTTLE 1 APPL TOPICAL (18:44)
--- NOTE | 2024-01-03 18:44 | PC.NURSE ---
nystatin powder applied to bilateral groin folds, and under left breast
[2024-01-03] MEDS: Albuterol Sulfate 2.5 MG, Albuterol/Iprat 2.5/0.5MG 3 ML 3 ML INHALE (19:47)
[2024-01-03 19:50] VITALS: PULSE 62; RESP 16; O2SAT 93
[2024-01-03] MEDS: cefuroxime axetiL 500 MG TABLET PO (19:50)
[2024-01-03] MEDS: guaiFEN/Codeine SF 200/20/10ML 10 ML LIQUID PO (19:50)
--- NOTE | 2024-01-03 20:03 | PC.NURSE ---
reporting she would rafaela pt to stay in hospital, states he was unable to get in/out of the car/ w/c today, was too weak. does not know how she will get him home if he is this weak. MD rod
[2024-01-03 20:45] VITALS: BP 117/52; PULSE 70; RESP 18; TEMP 36.7; O2SAT 93
--- NOTE | 2024-01-03 21:24 | MHC.CM.ED ---
Pt diagnosed with Covid on Dec 15. Has been progressively weak since, no appetite, eating very little. Fell today and had a near fall. Pt has ESRD-dialysis at [facility] ER. Had full dialysis today. Pt is very frustrated with dialysis. Has been going for about 3 years. States if not for his and grandchildren, he would stop it. admits that sometimes he does not go to dialysis. Lives with his . No services. Has a walker, w/c and stair left. Per his /HCP Melinda ([phone]), he can barely walk now. Ate very little today. Pt is very begrudgingly agreeable to STR. Requesting [facility]. Referral will be made. Pt has Medicare and CIG, however [facility] is seconday. HCP is at home. PCP is verified, as is address and insurance. C/O knee pain. Dr Hannah aware of above. Will remain overnight, for PT evaluation in the morning. CM will follow for safe discharge plan.
--- NOTE | 2024-01-03 21:40 | PC.NURSE ---
med rec completed with at bedside, had rx bottles with her
[2024-01-03] MEDS: buPROPion HCl XL 150 MG TAB.ER.24H PO (23:28)
[2024-01-03] MEDS: Sevelamer Carbonate Tablet 800 MG TABLET 1600 MG PO (23:28)
[2024-01-04] MEDS: traMADoL HCL 50 MG TABLET PO (01:23)
[2024-01-04 06:34] VITALS: BP 132/55; PULSE 87; RESP 18; TEMP 36.8; O2SAT 95
--- NOTE | 2024-01-04 06:42 | MHC.EDTECH ---
Patient is a dialysis Patient has not void sincwe he came in yesterday ,rn aware ice water given .
[2024-01-04] MEDS: Levothyroxine Sodium 75 MCG TABLET PO (06:47)
[2024-01-04 09:02] VITALS: BP 120/50; PULSE 65; RESP 14; O2SAT 96
[2024-01-04] MEDS: Sevelamer Carbonate Tablet 800 MG TABLET 1600 MG PO ×3 (09:04→21:34)
[2024-01-04] MEDS: cefuroxime axetiL 500 MG TABLET PO ×2 (09:04→21:34)
[2024-01-04] MEDS: Apixaban 2.5 MG TABLET PO ×2 (09:04→21:34)
[2024-01-04] MEDS: Torsemide 20 MG TABLET 40 MG PO (09:05)
[2024-01-04] MEDS: Amiodarone HCL 200 MG TABLET 100 MG PO (09:05)
[2024-01-04] MEDS: glipiZIDE XL 2.5 MG TAB.ER.24 PO (10:15)
--- NOTE | 2024-01-04 11:04 | MHC.CM.ED ---
Review of PT eval supports placement: Pt states to contact his spouse for all d/c related questions. Discussed Medicare qualifying stay vs ED boarding. Spouse states she is still paying off his last STR stay because he exhausted his days. Spouse notes lack of finances to pay for rehab or private care at home. Will refer to Acute rehab in the interim. ED CM to contact spouse with information regarding placement.
[2024-01-04 13:23] LABS: Appearance Urine Turbid; Color Urine Yellow; Glucose Urine UA Negative (Negative); Leukocyte Esterase Urine Large (3+) (Negative); Nitrite Urine Negative (Negative); Specific Gravity - Urine 1.015 (1.005-1.025); UMIC TRIGGER UACC YES; Urine Blood Large (3+) (Negative); Urine Ketones Negative (Negative); Urine Protein 100 (2+) mg/dL (Neg-Trace)
[2024-01-04 13:36] LABS: Bacteria Urine 4+ (None Seen); Hyaline Casts Urine 0-2 /LPF (0-2); Squamous Epithelial Cell Urine 0-2 /HPF (0-2); UACC Culture Trigger YES; WBC Urine >50 /HPF (0-5)
[2024-01-04] MEDS: guaiFEN/Codeine SF 200/20/10ML 10 ML LIQUID PO (14:07)
[2024-01-04 14:35] VITALS: BP 124/55; PULSE 65; RESP 16; TEMP 36.7; O2SAT 97
[2024-01-04] MEDS: buPROPion HCl XL 150 MG TAB.ER.24H PO (21:34)
--- NOTE | 2024-01-04 21:35 | PC.NURSE ---
pt medicated per mar, tolerated well with water. pt denies pain at this time. normal sinus on tele 60-64bpm.
--- NOTE | 2024-01-04 21:39 | PC.NURSE ---
pt bedding noted to be dirty, pt assisted in bed change, warm blanket given. call cottrell within reach.
[2024-01-04 22:00] VITALS: BP 129/53; PULSE 63; RESP 17; TEMP 36.6; O2SAT 96
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
[2024-01-05 06:32] VITALS: BP 132/57; PULSE 72; RESP 18; TEMP 36.6; O2SAT 96
[2024-01-05] MEDS: Levothyroxine Sodium 75 MCG TABLET PO (06:57)
--- NOTE | 2024-01-05 06:58 | PC.NURSE ---
pt medicated per mar, tolerated well with water.
--- NOTE | 2024-01-05 07:40 | PC.NURSE ---
report recieved from previous RN, patient resting comfortably on stretcher, provided breakfast tray, denisenet denies any pain at this time, plan of care remains ongoing.
--- NOTE | 2024-01-05 08:50 | PC.NURSE ---
pharmacy called to request pt glipizide
[2024-01-05] MEDS: glipiZIDE XL 2.5 MG TAB.ER.24 PO (09:43)
[2024-01-05] MEDS: Sevelamer Carbonate Tablet 800 MG TABLET 1600 MG PO ×3 (09:44→20:38)
[2024-01-05] MEDS: Apixaban 2.5 MG TABLET PO ×2 (09:44→20:38)
[2024-01-05] MEDS: cefuroxime axetiL 500 MG TABLET PO ×2 (09:44→20:38)
[2024-01-05] MEDS: Amiodarone HCL 200 MG TABLET 100 MG PO (09:44)
[2024-01-05 09:48] VITALS: BP 134/56
[2024-01-05] MEDS: Torsemide 20 MG TABLET 40 MG PO (09:48)
--- NOTE | 2024-01-05 11:55 | MHC.CM.ED ---
Pt remains holding in the ED for STR placement. Pt does not have a Medicare qualifying stay and cannot afford private pay. Pt has been referred to acute rehab without an offer although [facility] is still reviewing. EMR reviewed: pt admitted w/WBC of 12, 2 week + COVID and on 01/03, had findings supporting a UTI. Discussed w/ED MD: no indication for INPT based on bronchitis, and po tx for UTI. Pt is due for HD on 01/05: unknown if he has new electrolyte abnormalites: last BMP was 01/02. Pt is scheduled for HD (outpt at [facility] in [place] 10 - 2p) but is likely going to miss his session. Updated pt and spouse Melinda on above. [facility] inquiring on Hep B antigen and 3 HD run sheets: [facility] is closed on Saturday and ED CM unable to retrieve requested information. ED CM to follow - will upload HD information for [facility] to review on 01/05.
--- NOTE | 2024-01-05 14:29 | PHA.MEDREC ---
Pharmacy Consult ? Medication Reconciliation Pharmacy has completed the medication reconciliation. reviewed med rec done by nursing. Used claim history to verify.
--- NOTE | 2024-01-05 15:12 | PC.NURSE ---
patient consumed 80% of lunch tray, offering no complaints at this time, medicated per MAR, patient denies any complaints at this time, resting comfortably on stretcher with TV on, callbell within reach
[2024-01-05 16:39] VITALS: BP 134/65; PULSE 66; RESP 15; TEMP 36.6; O2SAT 97
--- NOTE | 2024-01-05 19:51 | PC.NURSE ---
Assuemd care of pt. Pt lying on stretcher, no acute distress at this time. Continuing plan of care.
[2024-01-05] MEDS: buPROPion HCl XL 150 MG TAB.ER.24H PO (20:38)
--- NOTE | 2024-01-05 21:54 | PC.NURSE ---
Attempted trial ambulation of pt. pt uses walker at baseline, unable to stand without assistance at this time. Continuing with PT/CM larry, notified MD Hannah with regard to need for Dialysis in am.
[2024-01-05 22:00] VITALS: BP 136/56; PULSE 72; RESP 16; O2SAT 97
[2024-01-06 05:39] VITALS: BP 136/66; PULSE 74; RESP 17; TEMP 36.6; O2SAT 97
[2024-01-06 06:00] VITALS: BP 124/64; PULSE 72; RESP 18; O2SAT 96
[2024-01-06] MEDS: cefuroxime axetiL 500 MG TABLET PO ×2 (07:26→21:33)
[2024-01-06] MEDS: Sevelamer Carbonate Tablet 800 MG TABLET 1600 MG PO ×3 (07:26→21:33)
[2024-01-06] MEDS: Apixaban 2.5 MG TABLET PO ×2 (07:26→21:33)
[2024-01-06] MEDS: Levothyroxine Sodium 75 MCG TABLET PO (07:26)
[2024-01-06] MEDS: Amiodarone HCL 200 MG TABLET 100 MG PO (07:27)
--- NOTE | 2024-01-06 07:34 | PC.NURSE ---
Alert and oriented,denies pain or discomfort. Midodrine held at this time pending plan for dialysis, patient aware and in agreement
--- NOTE | 2024-01-06 08:47 | MHC.CM.ED ---
Addendum entered by Madelin Ly 01/06/24 13:46: Spoke with Elizabeth at [facility]. They have HD on site Sat, Sat and Saturday. Patient will need to have dialysis before coming to [facility]. If patient has HD today, they can accept patient up to 8pm tonight. Maya Weems director aware and will reach out to Devin, Will Call Order Clerk. Original Note: Patient remains in ER. HD sheets and hepatitis panel requested from [facility] in [place]. Copy of HCP from [facility] requested. [facility] still reviewing. Continue to monitor for d/c needs.
[2024-01-06] MEDS: glipiZIDE XL 2.5 MG TAB.ER.24 PO (09:34)
--- NOTE | 2024-01-06 09:58 | PC.NURSE ---
shai held d/t BP and patient without scheduled time for dialysis today , provider aware patient needs dialysis today
--- NOTE | 2024-01-06 12:38 | PC.NURSE ---
pt's reports that he is acting confused, saying he is at [employer]. For this RN, pt is AOx4, aware of person, place, time, situation. will cont to monitor
--- NOTE | 2024-01-06 13:56 | PC.NURSE ---
Addendum entered by Lila Cool RN 01/06/24 14:10: Upon reading CM note, patient has bed available at [facility], will need dialysis before discharge, CM has escalated up to their director, nursing coordinator Checo made aware patient's DC is incumbent on nephro ordering dialysis. Original Note: Assumed care of this patient at this time from main ED. Per previous RN, Nephro consult placed, to see patient in order for dialysis to be ordered. Patient placed on monitor in OVERFLOW 1, eating lunch at this time, at bedside.
[2024-01-06 14:29] VITALS: BP 150/64; PULSE 61; RESP 19; TEMP 36.4; O2SAT 94
--- NOTE | 2024-01-06 16:37 | MHC.CM.ED ---
Addendum entered by Danitza Le 01/06/24 18:25: Pt will be admitted per provider. Original Note: CM spoke with [facility] for dialysis chair tomorrow. They have chair availability tomorrow at 6:00 am and 10:30 am, but they cannot arrange transport to [facility]. They can only arrange 911 calls to return to ED. Pt often times misses a dialysis session, going 4 days between dialysis sessions. Devin Watson Batch Plant Operator aware. Will order repeats labs. CM called and spoke with Noah with the question if they could dialyze this patient on Saturday if his labs are Okay. Per [facility], they would like to review the labs and will review with MD tomorrow. CM will call [facility] if chair is needed for tomorrow. Provider, charge and primary RN aware.
[2024-01-06 16:48] LABS: Basophils Percent Auto 0.2 % (0-2); Eosinophils Absolute Auto 0.2 X10*3/uL (0.0-0.4); Eosinophils Percent Auto 1.6 % (0-4); Hematocrit 28.1 % (42.0-52.0); Hemoglobin 8.7 g/dl (14.0-18.0); Imm Gran Abs Auto 0.13 X10*3/uL (0.00-0.03); Imm Gran Pct Auto 1.3 % (0.0-0.4); Lymphocytes Absolute Auto 0.8 X10*3/uL (1.2-4.9); Lymphocytes Percent Auto 7.5 % (20-40); Mean Corpuscular Hemoglobin 34.4 pg (27.0-33.0); Mean Platelet Volume 9.5 fL (9.4-12.4); Monocytes Percent Auto 10.2 % (2-11); Neutrophils Percent Auto 79.2 % (45-73); Platelet Count 100 X10*3/uL (160-400); Red Blood Count 2.53 X10*6/uL (4.60-5.80); Red Cell Distribution Width 13.8 % (11.0-16.0); White Blood Count 10.1 X10*3/uL (4.8-10.8)
[2024-01-06 16:53] LABS: MANUAL DIFF FLAG SCAN; Mean Corpuscular Volume 111.1 fL (80.0-98.0)
[2024-01-06 17:23] LABS: Alanine Aminotransferase 8 U/L (0-40); Albumin Level 2.8 g/dL (3.5-5.0); Alkaline Phosphatase 81 U/L (39-117); Anion Gap 19 (12-20); Aspartate Amino Transferase 7 U/L (5-37); Bilirubin Total 0.4 mg/dL (0.0-1.0); Blood Urea Nitrogen 64 mg/dL (9-16); Calcium 8.9 mg/dL (8.4-10.2); Carbon Dioxide 26 mmol/L (22-29); Chloride 100 mmol/L (96-108); Creatinine Clr Calc Pharmacy 7.4; Estimated Glomerular Filt Rate 5; Glucose Random 55 mg/dL (60-115); Magnesium 2.4 mg/dL (1.6-2.6); Potassium 4.5 mmol/L (3.3-5.1); Sodium 140 mmol/L (135-145); Total Protein 5.5 g/dL (6.5-8.0)
[2024-01-06 17:30] LABS: Glucose, Whole Blood 48 mg/dL (60-115)
[2024-01-06 17:43] LABS: SLIDE REVIEW VERIFIED
--- NOTE | 2024-01-06 17:48 | PC.NURSE ---
50% Dextrose Injection 25g/50mls given per provider verbal order at 5:40pm for low blood sugar
[2024-01-06] MEDS: Dextrose 10 % 250 ML 750 ML IV ×2 (18:14→22:36)
--- NOTE | 2024-01-06 18:14 | PC.NURSE ---
Patient's labwork resulted w/ 2 criticals creat 9.75, glucose 55, bedside POC 48, PA Margareth Louis made aware, verbal order for 25g Dextrose AMP x [address] provider [address] order when able. Plan to admit patient in place.
--- NOTE | 2024-01-06 21:02 | PM.IMHP ---
History of Present Illness Date of Service: 01/06/24 <GUZMAN Carrion - Last Filed: 01/06/24 22:24> Attending physician on admission: Avril Montemayor <GUZMAN Carrion - Last Filed: 01/06/24 22:24> Chief Complaint: Missed dialysis <GUZMAN Carrion - Last Filed: 01/06/24 22:24> Pt is a 78-year-old male with a PMH significant for?paroxysmal AFib on Eliquis, HLD, [id number] type 2 diabetes, ESRD on HD M/W/F, orthostatic hypotension, hypothyroidism, and mood disorder who initially presented to the ED 3 days prior on 01/02/2023 for generalized weakness, fatigue, and poor p.o. intake after almost losing consciousness after dialysis on 01/02. Patient apparently had been recently diagnosed with COVID 2 weeks prior and since then has not been eating much and feeling much more fatigued than normal. Workup at that time was largely negative except for UTI and was started on cefuroxime. Was then placed in physician observation with plan for rehab placement as patient's is unable to take care of him at home. Case management found placement at [facility], though they will not accept him without him having his scheduled dialysis today as they are unable to arrange for transportation to dialysis today. The patient will thus be admitted into the hospital for emergent dialysis with plan to discharge and send to rehab tomorrow. Review of patient's labs from this afternoon indicate no significant electrolyte abnormalities, though do show worsening kidney function of 9.75, elevated from 5.92 on 01/03/2024. Patient also noted to be hypoglycemic with POC of 48. Patient was given 1 amp of glucagon with improvement of POC to 114, but repeat POC 2 hours later showed glucose of 48. The patient himself reports feeling lightheaded and dizzy, which is new. On Saturday patient reported he only felt weak. States has not been eating or drinking much. Otherwise has no acute medical complaints. Denies fever, chills, nausea, vomiting, abdominal pain. No chest pain/pressure, palpitations. Denies shortness or breath, difficulty breathing, cough. 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) ELIF (obstructive sleep apnea) ESRD (end stage renal disease) NSVT (nonsustained ventricular tachycardia) HLD (hyperlipidemia) HTN (hypertension) Afib Congestive heart disease Dialysis complication Kidney failure Low blood pressure DM type 2 (diabetes mellitus, type 2) Gallbladder calculus <GUZMAN Carrion - Last Filed: 01/06/24 22:24> Family History: Family History Maternal Grandmother Pancreatic cancer Mother Diabetes type 2, controlled <GUZMAN Carrion - Last Filed: 01/06/24 22:24> Surgical History: Surgical History Hx of surgical procedure History of surgery History of umbilical hernia repair History of tonsillectomy and adenoidectomy <GUZMAN Carrion - Last Filed: 01/06/24 22:24> Social History: Social History Alcohol intake: former Patient Tobacco Use Status: Former Tobacco user Tobacco use type: Cigarette Smoked in Last 30 Days: No Use of substances other than those prescribed or required for medical reasons: No Advance Directives: No Advance Directives Information Provided: No Nutrition Risks: No Nutritional Risk <GUZMAN Carrion - Last Filed: 01/06/24 22:24> Meds Allergies/Adverse reactions: Allergies Allergy/AdvReac Type Severity Reaction Status Date / Time oxycodone AdvReac Gastrointestinal Verified 01/03/24 16:46 Upset <GUZMAN Carrion - Last Filed: 01/06/24 22:24> Active Medications: Current Medications Acetaminophen (Acetaminophen 325 Mg Tablet) 650 mg PO Q6H PRN PRN Reason: Pain, Mild (Pain Scale 1-3), fever or headache Albuterol Sulfate (Albuterol Sulfate 90 Mcg 8 Gm Inhaler) 2 puff INHALE RQ4H PRN PRN Reason: Wheezing Amiodarone HCl (Amiodarone Hcl 200 Mg Tablet) 100 mg PO DAILY [facility] Last Admin: 01/06/24 07:27 Dose: 100 mg Apixaban (Apixaban 2.5 Mg Tablet) 2.5 mg PO BID [facility] Last Admin: 01/06/24 07:26 Dose: 2.5 mg Bupropion HCl (Bupropion Hcl Xl 150 Mg Tab.Er.24h) 150 mg PO BEDTIME [facility] Last Admin: 01/05/24 20:38 Dose: 150 mg Calcium Carbonate (Calcium Carbonate 750 Mg Tab.Chew) 750 mg PO Q4H PRN PRN Reason: Heartburn Cefuroxime Axetil (Cefuroxime Axetil 500 Mg Tablet) 500 mg PO BID [facility] Stop: 01/10/24 21:00 Last Admin: 01/06/24 07:26 Dose: 500 mg Glucose (Glucose Gel 15 Gm Gel..Gram.) 15 gm PO Q15M PRN; Protocol PRN Reason: per Hypoglycemia Standing Ord. Guaifenesin/Codeine Phosphate (Guaifen/Codeine Sf 200/20/10ml 10 Ml Liquid) 10 ml PO Q4H PRN PRN Reason: Cough Last Admin: 01/04/24 14:07 Dose: 10 ml Dextrose (D10) 250 mls @ 750 mls/hr IV Q15M PRN PRN Reason: per Hypoglycemia Standing Ord. Last Infusion: 01/06/24 18:14 Dose: Infused Dextrose (D10) 250 mls @ 750 mls/hr IV Q15M PRN PRN Reason: per Hypoglycemia Standing Ord. Dextrose (D10) 250 mls @ 750 mls/hr IV Q15M PRN; Protocol PRN Reason: per Hypoglycemia Standing Ord. Insulin Human Lispro (Insulin Lispro 100 Unit/Ml 3 Ml Vial) 0 unit SUBCUT QIDACHS [facility]; Protocol Levothyroxine Sodium (Levothyroxine Sodium 75 Mcg Tablet) 75 mcg PO DAILY@0630 [facility] Last Admin: 01/06/24 07:26 Dose: 75 mcg Magnesium Hydroxide (Milk Of Magnesia 30 Ml Oral.Susp) 30 ml PO DAILY PRN PRN Reason: Constipation Melatonin (Melatonin 3 Mg Tablet) 6 mg PO BEDTIME PRN PRN Reason: Insomnia Midodrine (Midodrine Hcl 10 Mg Tablet) 10 mg PO MoWeFr@0900 [facility] Last Admin: 01/06/24 09:58 Dose: Not Given Ondansetron HCl (Ondansetron Hcl 4 Mg/2 Ml Vial) 4 mg IVPUSH Q8H PRN PRN Reason: Nausea and Vomiting Sevelamer Carbonate (Sevelamer Carbonate Tablet 800 Mg Tablet) 1,600 mg PO TID [facility] Last Admin: 01/06/24 14:40 Dose: 1,600 mg Sodium Chloride (0.9 % Sodium Chloride Flush 3 Ml Syringe) 3 ml IVFLUSH [facility] Torsemide (Torsemide 20 Mg Tablet) 40 mg PO SuTuThSa@0900 [facility]; Protocol Last Admin: 01/05/24 09:48 Dose: 40 mg <GUZMAN Carrion - Last Filed: 01/06/24 22:24> Home medications: Home Medications ?Medication ?Instructions ?Recorded ?Confirmed ?Last Taken ?Type apixaban 2.5 mg tablet (Eliquis) 2.5 mg PO BID 11/07/22 01/03/24 12/17/22 History glucosamine-chondroitin 250 mg-200 1 tab PO TIDWM 11/07/22 01/05/24 Unknown History mg tablet (Osteo Bi-Flex) melatonin 5 mg capsule 5 mg PO BEDTIME 11/07/22 01/05/24 Unknown History atorvastatin 20 mg tablet 20 mg PO BEDTIME 01/03/24 01/03/24 Unknown History bupropion HCl 150 mg 24 hr tablet, 150 mg PO BEDTIME 01/03/24 01/03/24 Unknown History extended release sevelamer HCl 800 mg tablet 1,600 mg PO TID 01/03/24 01/03/24 Unknown History torsemide 20 mg tablet 40 mg PO SUTUTHSA 01/03/24 01/05/24 Unknown History midodrine 10 mg tablet 10 mg PO MOWEFR 01/05/24 01/05/24 Unknown History <GUZMAN Carrion - Last Filed: 01/06/24 22:24> Physical Exam Vital Signs and Narrative: Vital Signs: Last Vital Signs Temp 97.5 F 01/06/24 14:29 Pulse 61 01/06/24 14:29 Resp 19 01/06/24 14:29 BP 150/64 H 01/06/24 14:29 Pulse Ox 94 01/06/24 14:29 O2 Del Method Room Air 01/06/24 14:29 BMI result Body Mass Index 35.9 <GUZMAN Carrion - Last Filed: 01/06/24 22:24> General: AOx3, no acute distress Resp: CTA bilaterally CVS: S1, S2, RRR GI: +BS, NT, no distention Skin: Warm, dry Neuro: Cranial nerves II-XII grossly intact bilaterally. Motor grossly intact bilaterally, though with global weakness noted Extremities: No edema Psych: Appropriate affect <GUZMAN Carrion - Last Filed: 01/06/24 22:24> Results Labs CBC and Chem 7: 01/06/24 16:36 01/06/24 16:36 <GUZMAN Carrion - Last Filed: 01/06/24 22:24> Labs: Laboratory Results - last 24 hr 01/03/24 01/06/24 01/06/24 17:49 16:36 17:27 MCV 111.1 H MCH 34.4 H MCHC 31.0 RDW 13.8 Plt Count 100 L MPV 9.5 Immature Gran % (Auto) 1.3 H Neut % (Auto) 79.2 H Lymph % (Auto) 7.5 L [place] % (Auto) 10.2 Eos % (Auto) 1.6 Baso % (Auto) 0.2 Lymph # (Auto) 0.8 L [place] # (Auto) 1.0 Eos # (Auto) 0.2 Baso # (Auto) 0.0 Abs Immat Gran (auto) 0.13 H Absolute Neuts (auto) 8.0 Absolute Nucleated RBC 0.000 Nucleated RBC % (auto) 0.0 Smear Tech's Comments VERIFIED Smear Path Review SEE NOTE Anion Gap 19 Estim Creat Clear Calc 7.4 Estimated GFR 5 POC Glucose 48 L* Random Glucose 55 L* Calcium 8.9 Magnesium 2.4 Total Bilirubin 0.4 AST 7 ALT 8 Alkaline Phosphatase 81 Total Protein 5.5 L Albumin 2.8 L <GUZMAN Carrion Last Filed: 01/06/24 22:24> Assessment and Plan (1) End stage chronic kidney disease: Status: Acute <GUZMAN Carrion Last Filed: 01/06/24 22:24> Pt is a 78-year-old male with a PMH significant for?paroxysmal AFib on Eliquis, HLD, [id number] type 2 diabetes, ESRD on HD M/W/F, orthostatic hypotension, hypothyroidism, and mood disorder who initially presented to the ED 3 days prior on 01/02/2023 for generalized weakness, fatigue, and poor p.o. intake after almost losing consciousness after dialysis on 01/02. Was initially placed into physician observation awaiting STR placement. The patient is being admitted into the hospital for emergent dialysis with plan to discharge and send to rehab tomorrow. ESRD On HD M/W/F Missed dialysis today, needs dialysis prior to discharge to SNF Elevated creatinine today, electrolytes WNL Pt takes midodrine 10 mg prior to HD Continue torsemide Nephrology consult Monitor on telemetry Follow BMP Hypoglycemia Patient has been persistently hypoglycemic today as low as 48 despite administration of glucose [address] on D5 at 75 mls/hr Likely secondary to continuing glipizide in the setting of reduced p.o. intake Hold glipizide POC q.2h UTI Started on cefuroxime 500 mg b.i.d. on 01/04/2024 Stop on 01/10/2024 at 21:00 Paroxysmal AFib Continue amiodarone, Eliquis Hypothyroidism Continue levothyroxine Mood disorder Continue bupropion Full Code Attending:?Dr. Camarena DVT Prophylaxis: On Eliquis Patient will be admitted to the hospital under observation in order to receive emergent dialysis prior to discharge to STR. <GUZMAN Carrion - Last Filed: 01/06/24 22:24> Pt is a 78-year-old male with a PMH significant for?paroxysmal AFib on Eliquis, HLD, [id number] type 2 diabetes, ESRD on HD M/W/F, orthostatic hypotension, hypothyroidism, and mood disorder who initially presented to the ED 3 days prior on 01/02/2023 for generalized weakness, fatigue, and poor p.o. intake after almost losing consciousness after dialysis on 01/02. Was initially placed into physician observation awaiting STR placement. The patient is being admitted into the hospital for emergent dialysis with plan to discharge and send to rehab tomorrow. Generalized Weakness due to debility Awaiting STR placement ESRD On HD M/W/F Missed dialysis today, needs dialysis prior to discharge to SNF Elevated creatinine today, electrolytes WNL Pt takes midodrine 10 mg prior to HD Continue torsemide Nephrology consult Monitor on telemetry Follow BMP Hypoglycemia Patient has been persistently hypoglycemic today as low as 48 despite administration of glucose [address] on D5 at 75 mls/hr Likely secondary to continuing glipizide in the setting of reduced p.o. intake Hold glipizide POC q.2h UTI Started on cefuroxime 500 mg b.i.d. on 01/04/2024 Stop on 01/10/2024 at 21:00 Paroxysmal AFib Continue amiodarone, Eliquis Hypothyroidism Continue levothyroxine Mood disorder Continue bupropion Full Code Attending:?Dr. Camarena DVT Prophylaxis: On Eliquis Patient will be admitted to the hospital under observation in order to receive emergent dialysis prior to discharge to [facility]. <Avril Montemayor MD - Last Filed: 01/06/24 22:26> Quality Stroke Does the patient have a stroke diagnosis?: No <GUZMAN Carrion - Last Filed: 01/06/24 22:24> VTE Prior VTE?: No <GUZMAN Carrion - Last Filed: 01/06/24 22:24> VTE Risk Level:: Medical - moderate - high <GUZMAN Carrion - Last Filed: 01/06/24 22:24> VTE Device Contraindication: Treatment Not Indicated <GUZMAN Carrion - Last Filed: 01/06/24 22:24> VTE Drug Contraindication: N/A - Med Ordered <GUZMAN Carrion - Last Filed: 01/06/24 22:24>
[2024-01-06 21:05] VITALS: BP 126/56; PULSE 64; RESP 16; TEMP 37.1; O2SAT 96
[2024-01-06 21:17] LABS: Glucose, Whole Blood 48 mg/dL (60-115)
[2024-01-06 21:17] LABS: Glucose, Whole Blood 114 mg/dL (60-115)
[2024-01-06] MEDS: buPROPion HCl XL 150 MG TAB.ER.24H PO (21:33)
[2024-01-06] MEDS: guaiFEN/Codeine SF 200/20/10ML 10 ML LIQUID PO (21:34)
[2024-01-06] MEDS: Glucose Gel 15 GM GEL..GRAM. PO (21:34)
[2024-01-06] MEDS: Dextrose 5 % and 0.9 % NaCl 1,000 ML 100 ML IVCONT (21:40)
--- NOTE | 2024-01-06 21:48 | PC.NURSE ---
Patient's POC rechecked x 2, readings of 48 & 50, Nayely HINDS at bedside, informed of POC, will order D5 asked for it to be started STAT, request recheck POC in 2 hours.
--- NOTE | 2024-01-06 21:50 | PC.NURSE ---
Patient continues to rest quietly in bed, IV site cleaned/redressed, requested snack of crackers, alert and oriented at this time.
[2024-01-06 22:12] LABS: Glucose, Whole Blood 48 mg/dL (60-115)
--- NOTE | 2024-01-06 22:22 | MHC.EDTECH ---
poc 48 RN aware, gave patient a cup of orange juice
--- NOTE | 2024-01-06 22:35 | MHC.CM.ED ---
CM spoke with Dr. Montemayor. Pt will be admitted and have dialysis at [facility] tomorrow. Updated [facility] to follow pending discharge.
[2024-01-06] MEDS: glucagon HCL 1 MG VIAL IVPUSH (22:45)
--- NOTE | 2024-01-06 22:51 | PC.NURSE ---
POC recheck after PO glucose gel and D5NS started 48, Dr. Montemayor made aware, IV D10 hung, glucagon ordered and given per order. Dr. Montemayor request to recheck POC in 2 hours.
[2024-01-07] LABS: Glucose, Whole Blood 76 mg/dL (60-115)
[2024-01-07 02:02] LABS: Glucose, Whole Blood 63 mg/dL (60-115)
[2024-01-07] MEDS: Glucose Gel 15 GM GEL..GRAM. PO ×3 (02:03→05:36)
[2024-01-07 02:33] LABS: Glucose, Whole Blood 58 mg/dL (60-115)
--- NOTE | 2024-01-07 02:39 | PC.NURSE ---
Pt 0200 POC was 63, administered Glucose gel per protocol. Retest at 215 was 58, second Glucose gel administered. Will retest in another 15 min, notified
[2024-01-07] MEDS: Dextrose 10 % 1,000 ML 50 ML IVCONT ×2 (02:52→18:29)
[2024-01-07 02:56] LABS: Glucose, Whole Blood 55 mg/dL (60-115)
--- NOTE | 2024-01-07 04:00 | PC.NURSE ---
PT POC at 4am is 52. started pt on D10. Pt is asymptomatic. Will CTM closely. Offered snack to pt and he declined.
[2024-01-07 04:01] LABS: Glucose, Whole Blood 52 mg/dL (60-115)
[2024-01-07 05:09] LABS: MANUAL DIFF FLAG NO
[2024-01-07 05:11] LABS: Basophils Percent Auto 0.2 % (0-2); Eosinophils Absolute Auto 0.2 X10*3/uL (0.0-0.4); Eosinophils Percent Auto 1.9 % (0-4); Hemoglobin 8.8 g/dl (14.0-18.0); Imm Gran Abs Auto 0.09 X10*3/uL (0.00-0.03); Lymphocytes Absolute Auto 1.1 X10*3/uL (1.2-4.9); Lymphocytes Percent Auto 11.8 % (20-40); Mean Corpuscular HGB Conc 31.4 g/dl (31.0-36.0); Mean Corpuscular Hemoglobin 34.8 pg (27.0-33.0); Mean Corpuscular Volume 110.7 fL (80.0-98.0); Mean Platelet Volume 9.5 fL (9.4-12.4); Monocytes Percent Auto 11.2 % (2-11); Neutrophils Absolute Auto 6.8 x10*3/uL (2.0-8.3); Neutrophils Percent Auto 73.9 % (45-73); Platelet Count 105 X10*3/uL (160-400); Red Blood Count 2.53 X10*6/uL (4.60-5.80); White Blood Count 9.2 X10*3/uL (4.8-10.8)
[2024-01-07 05:27] LABS: Anion Gap 18 (12-20); Blood Urea Nitrogen 75 mg/dL (9-16); Calcium 8.6 mg/dL (8.4-10.2); Carbon Dioxide 25 mmol/L (22-29); Chloride 100 mmol/L (96-108); Creatinine Clr Calc Pharmacy 6.9; Estimated Glomerular Filt Rate 5; Glucose Random 57 mg/dL (60-115); Potassium 4.2 mmol/L (3.3-5.1); Sodium 139 mmol/L (135-145)
--- NOTE | 2024-01-07 05:27 | PC.NURSE ---
Pt POC is 63. He is on D10 IV and will be administered Glucose gel. Will recheck in 15 min. notified
[2024-01-07 05:29] LABS: Glucose, Whole Blood 63 mg/dL (60-115)
[2024-01-07] MEDS: Levothyroxine Sodium 75 MCG TABLET PO (05:40)
[2024-01-07 05:51] VITALS: BP 154/76; PULSE 67; RESP 17; TEMP 36.4; O2SAT 94
[2024-01-07 07:09] LABS: Glucose, Whole Blood 65 mg/dL (60-115)
[2024-01-07] MEDS: Amiodarone HCL 200 MG TABLET 100 MG PO (09:00)
[2024-01-07] MEDS: cefuroxime axetiL 500 MG TABLET PO ×2 (09:00→21:05)
[2024-01-07] MEDS: Apixaban 2.5 MG TABLET PO ×2 (09:04→21:05)
[2024-01-07] MEDS: Sevelamer Carbonate Tablet 800 MG TABLET 1600 MG PO ×2 (09:04→21:05)
[2024-01-07] MEDS: Torsemide 20 MG TABLET 40 MG PO (09:04)
[2024-01-07 09:22] LABS: Estimated Average Glucose 85 mg/dL; Hemoglobin A1C 59.6494 umol/L; Hemoglobin A1c % 4.6 % (<6.0); Total Hemoglobin (HGBA1C) 2220.0269 umol/L
[2024-01-07 09:23] LABS: Glucose, Whole Blood 70 mg/dL (60-115)
--- NOTE | 2024-01-07 10:39 | P.CONNP_ITS ---
History of Present Illness Reason for Consult Consult date: 01/07/24 Chief Complaint Chief complaint: weakness History of Present Illness Narrative: Pt is a 78-year-old male with medical history significant for?paroxysmal AFib on Eliquis, HLD, [id number] type 2 diabetes, ESRD on HD M/W/F, orthostatic hypotension, hypothyroidism, and mood disorder, presented with generalized weakness, fatigue and poor PO intake. Last HD was on Saturday, 01/02 missed dialysis yesterday (Saturday, 01/05), due to feeling unwell, came to ED. Pt is covid positive, he is stable but is unable to care for him at home, needs to be discharged to rehab, rehab requires HD completed before discharge. pt is also being treated with PO abx for UTI sicne 01/03 Pt is followed by nephrology, Dr Marshall as an outpatinet. chronic anemia, H&H 8.8 and 28 today electrolytes within normal limits, including potassium, calcium pt has some mild trace to +1 BLE edema and some crackles at lung bases on exam; mucous membranes dry reports breathing is ok, not at his baseline since covid no tremors patient is alert and oriented denies nausea, vomiting, pruritus reports he has been passing urine with urinal Review of Systems Constitutional: Reports fatigue, Denies headache(s) and Reports lethargy Denies dizziness and Denies headache(s) Cardiovascular: Denies chest pain, Reports leg edema (trace lower extremity swelling), Denies lightheadedness and Reports dyspnea Respiratory: Reports dyspnea Gastrointestinal: Denies abdominal pain and Denies diarrhea Genitourinary: Denies hematuria, Denies dysuria and Denies flank pain Denies dizziness and Denies headache(s) Endocrine: Reports fatigue [facility] Past Medical History 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) ELIF (obstructive sleep apnea) ESRD (end stage renal disease) NSVT (nonsustained ventricular tachycardia) HLD (hyperlipidemia) HTN (hypertension) Afib Congestive heart disease Dialysis complication Kidney failure Low blood pressure DM type 2 (diabetes mellitus, type 2) Gallbladder calculus Family History Family History Maternal Grandmother Pancreatic cancer Mother Diabetes type 2, controlled Surgical History Surgical History Hx of surgical procedure History of surgery History of umbilical hernia repair History of tonsillectomy and adenoidectomy Social History Social History Alcohol intake: former Patient Tobacco Use Status: Former Tobacco user Tobacco use type: Cigarette Smoked in Last 30 Days: No Use of substances other than those prescribed or required for medical reasons: No Advance Directives: No Advance Directives Information Provided: No Nutrition Risks: No Nutritional Risk Meds Allergies Allergy/AdvReac Type Severity Reaction Status Date / Time oxycodone AdvReac Gastrointestinal Verified 01/03/24 16:46 Upset Active Medications: Current Medications Acetaminophen (Acetaminophen 325 Mg Tablet) 650 mg PO Q6H PRN PRN Reason: Pain, Mild (Pain Scale 1-3), fever or headache Albuterol Sulfate (Albuterol Sulfate 90 Mcg 8 Gm Inhaler) 2 puff INHALE RQ4H PRN PRN Reason: Wheezing Amiodarone HCl (Amiodarone Hcl 200 Mg Tablet) 100 mg PO DAILY [facility] Last Admin: 01/07/24 09:00 Dose: 100 mg Apixaban (Apixaban 2.5 Mg Tablet) 2.5 mg PO BID [facility] Last Admin: 01/07/24 09:04 Dose: 2.5 mg Bupropion HCl (Bupropion Hcl Xl 150 Mg Tab.Er.24h) 150 mg PO BEDTIME [facility] Last Admin: 01/06/24 21:33 Dose: 150 mg Calcium Carbonate (Calcium Carbonate 750 Mg Tab.Chew) 750 mg PO Q4H PRN PRN Reason: Heartburn Cefuroxime Axetil (Cefuroxime Axetil 500 Mg Tablet) 500 mg PO BID [facility] Stop: 01/10/24 21:00 Last Admin: 01/07/24 09:00 Dose: 500 mg Glucose (Glucose Gel 15 Gm Gel..Gram.) 15 gm PO Q15M PRN; Protocol PRN Reason: per Hypoglycemia Standing Ord. Last Admin: 01/07/24 05:36 Dose: 15 gm Guaifenesin/Codeine Phosphate (Guaifen/Codeine Sf 200/20/10ml 10 Ml Liquid) 10 ml PO Q4H PRN PRN Reason: Cough Last Admin: 01/06/24 21:34 Dose: 10 ml Dextrose (D10) 250 mls @ 750 mls/hr IV Q15M PRN PRN Reason: per Hypoglycemia Standing Ord. Last Infusion: 01/06/24 18:14 Dose: Infused Dextrose (D10) 250 mls @ 750 mls/hr IV Q15M PRN PRN Reason: per Hypoglycemia Standing Ord. Dextrose (D10) 250 mls @ 750 mls/hr IV Q15M PRN; Protocol PRN Reason: per Hypoglycemia Standing Ord. Last Infusion: 01/06/24 22:57 Dose: Infused Dextrose (D10) 1,000 mls @ 50 mls/hr IVCONT .Q20H [facility] Last Infusion: 01/07/24 09:49 Dose: 0 mls/hr Insulin Human Lispro (Insulin Lispro 100 Unit/Ml 3 Ml Vial) 0 unit SUBCUT QIDACHS [facility]; Protocol Last Admin: 01/07/24 07:35 Dose: Not Given Levothyroxine Sodium (Levothyroxine Sodium 75 Mcg Tablet) 75 mcg PO DAILY@0630 [facility] Last Admin: 01/07/24 05:40 Dose: 75 mcg Lidocaine HCl (Lidocaine Hcl 1 % Mpf 2 Ml Vial) 2 ml INFILTRATI MOWEFR ONE Stop: 01/08/24 10:15 Magnesium Hydroxide (Milk Of Magnesia 30 Ml Oral.Susp) 30 ml PO DAILY PRN PRN Reason: Constipation Melatonin (Melatonin 3 Mg Tablet) 6 mg PO BEDTIME PRN PRN Reason: Insomnia Midodrine (Midodrine Hcl 10 Mg Tablet) 10 mg PO MoWeFr@09 [facility] Last Admin: 01/06/24 09:58 Dose: Not Given Ondansetron HCl (Ondansetron Hcl 4 Mg/2 Ml Vial) 4 mg IVPUSH Q8H PRN PRN Reason: Nausea and Vomiting Sevelamer Carbonate (Sevelamer Carbonate Tablet 800 Mg Tablet) 1,600 mg PO TID [facility] Last Admin: 01/07/24 09:04 Dose: 1,600 mg Sodium Chloride (0.9 % Sodium Chloride Flush 3 Ml Syringe) 3 ml IVFLUSH QSHIFT [facility] Last Admin: 01/07/24 09:05 Dose: Not Given Torsemide (Torsemide 20 Mg Tablet) 40 mg PO SuTuThSa@09 [facility]; Protocol Last Admin: 01/07/24 09:04 Dose: 40 mg Home Medications ?Medication ?Instructions ?Recorded ?Confirmed ?Last Taken ?Type apixaban 2.5 mg tablet (Eliquis) 2.5 mg PO BID 11/07/22 01/03/24 12/17/22 History glucosamine-chondroitin 250 mg-200 1 tab PO TIDWM 11/07/22 01/05/24 Unknown History mg tablet (Osteo Bi-Flex) melatonin 5 mg capsule 5 mg PO BEDTIME 11/07/22 01/05/24 Unknown History atorvastatin 20 mg tablet 20 mg PO BEDTIME 01/03/24 01/03/24 Unknown History bupropion HCl 150 mg 24 hr tablet, 150 mg PO BEDTIME 01/03/24 01/03/24 Unknown History extended release sevelamer HCl 800 mg tablet 1,600 mg PO TID 01/03/24 01/03/24 Unknown History torsemide 20 mg tablet 40 mg PO SUTUTHSA 01/03/24 01/05/24 Unknown History midodrine 10 mg tablet 10 mg PO MOWEFR 01/05/24 01/05/24 Unknown History Physical Exam Vital Signs: Last Vital Signs Temp 97.6 F 01/07/24 05:51 Pulse 67 01/07/24 05:51 Resp 17 01/07/24 05:51 BP 154/76 H 01/07/24 05:51 Pulse Ox 94 01/07/24 05:51 O2 Del Method Room Air 01/07/24 05:51 BMI result Body Mass Index 35.9 Const General: comfortable and no acute distress Orientation/consciousness: oriented to person, oriented to place and oriented to time Neck Neck: Yes no JVD Resp Effort & Inspection: able to speak in complete sentences Auscultation: crackles (bilateral posterior crackles lower and middle lobes ) and wheezes (expiratory wheeze throughout posterior lung partida ) Cardio Jugular venous distension: no JVD Rate: regular rate Rhythm: regular rhythm Heart sounds: S1 normal heart sound present and S2 normal heart sound present GI Palpation (GI): Soft to palpation Rectal Exam - Male: No tenderness General: Yes no CVA tenderness Back/Spine/Pelvis Back: no CVA tenderness Skin Rashes: no rashes Neuro General: oriented to person, oriented to place and oriented to time Extrem General: Yes normal to inspection and Yes edema (trace to +1 bilateral lower extremity edema) Results Lab Results 01/07/24 04:17 01/07/24 04:17 Lab results: Chemistry 01/06/24 01/07/24 16:36 04:17 Sodium 140 139 Potassium 4.5 4.2 Carbon Dioxide 26 25 BUN 64 H 75 H Creatinine 9.75 H* 10.46 H* Calcium 8.9 8.6 Hematology 01/06/24 01/07/24 16:36 04:17 WBC 10.1 9.2 Hgb 8.7 L 8.8 L Plt Count 100 L 105 L Urinalysis 01/04/24 13:16 Urine Color Yellow Urine Appearance Turbid Urine pH 6.0 Ur Specific [place] 1.015 Urine Protein 100 (2+) H Urine Glucose (UA) Negative Urine Ketones Negative Urine Blood Large (3+) H Urine Nitrite Negative Ur Leukocyte Esterase Large (3+) H Urine RBC 3-5 H Urine WBC >50 H Ur Squamous Epith Cells 0-2 Hyaline Casts 0-2 Assessment and Plan (1) End stage chronic kidney disease: Status: Acute Plan ESRD patient who missed HD yesterday due to fatigue/weakness likely secondary to covid infection and reduced PO intake. patient will recieve dialysis today, as well as tomorrow (Saturday) to get him back on his regular M,, schedule. Pt is agreeable to this plan at bedside. patient has left upper extremity AV fistula with palpable thrill and bruit to auscultation patient is lethargic, otherwise no uremic symptoms present patient has baseline anemia that has worsened, will administer epogen 20,000 units due to hemoglobin of 8.8 calcium within normal limits, will check phosphorous tomorrow patient appears euvolemic, may have slight overload with edema and crackles. Will optimize his fluids with dialysis. Discussed with Dr Mendoza. Procedures Date of Service Date of Service: 01/07/24
[2024-01-07 11:20] LABS: Glucose, Whole Blood 64 mg/dL (60-115)
--- NOTE | 2024-01-07 12:30 | PC.NURSE ---
MD khan communication d/t patient still having no IV access. MD khan ok with no access but still orders for Q2 BS monitoring and will revaluate after 1pm BS check. Patient ate sandwhich for late breakfast and tolerated well.
--- NOTE | 2024-01-07 13:15 | PC.NURSE ---
Patient transported to dialysis
--- NOTE | 2024-01-07 13:18 | PC.NURSE ---
Patient BS 59 prior to transport to dialysis. cage tender made aware and MD vu aware. ICU director secure chat for assistance with IV placement by US d/t patient difficulty with access, multiple ED RN attempts.
[2024-01-07 13:22] LABS: Glucose, Whole Blood 59 mg/dL (60-115)
--- NOTE | 2024-01-07 15:16 | PC.NURSE ---
Called dialysis to check in on patient. Still tolerating dialysis well and anticipate return in a couple hours. RN will call if anything changes.
--- NOTE | 2024-01-07 16:10 | MHC.CM.PN ---
PT ACCEPTED AT [facility] PT UNABLE TO BE DCD MEDICALLY [facility] will continue to follow
[2024-01-07 17:15] LABS: Glucose, Whole Blood 67 mg/dL (60-115)
--- NOTE | 2024-01-07 17:18 | PC.NURSE ---
Addendum entered by Pallavi Lomax RN 01/07/24 18:55: Patient arrived back to OBS bed 1 at 1825. POC obtained reading 46, pt asymptomatic. Patient drank 240cc orange juice w/ 4 extra sugar packets. D10 @ 50cc/hr restarted. Patient setup for dinner. 15min POC recheck 97 - Dr Cortez notified via tiger text. Handoff given to Mireya DUMONT. Original Note: Assumed care at 1630. Patient in dialysis waiting for transport to IR for IV placement. POC checked in dialysis and reported back at 67. Care ongoing.
--- NOTE | 2024-01-07 18:08 | P.PNIM_ITS ---
Subjective Subjective Date of Service: 01/07/24 Interval History: Hypoglycemia Review of Systems Patient is currently asymptomatic but fingersticks are mostly in 50-60 range. Going for hemodialysis Physical Exam 2 Vital Signs: Vital Signs: Last Vital Signs Temp 97.6 F 01/07/24 05:51 Pulse 67 01/07/24 05:51 Resp 17 01/07/24 05:51 BP 154/76 H 01/07/24 05:51 Pulse Ox 94 01/07/24 05:51 O2 Del Method Room Air 01/07/24 05:51 BMI result Body Mass Index 35.9 Appearance: Alert.? Oriented X3.? cvs: rrr, [id number] , no murmur res: clear to auscultation ,no rales abd: no rebound or guarding ,nt, bs present. ext pulses present , no cyanosis. neuro: axo3 , nonfocal. Objective Data Active Medications Acetaminophen (Acetaminophen 325 Mg Tablet) 650 mg PO Q6H PRN PRN Reason: Pain, Mild (Pain Scale 1-3), fever or headache Albuterol Sulfate (Albuterol Sulfate 90 Mcg 8 Gm Inhaler) 2 puff INHALE RQ4H PRN PRN Reason: Wheezing Amiodarone HCl (Amiodarone Hcl 200 Mg Tablet) 100 mg PO DAILY [facility] Last Admin: 01/07/24 09:00 Dose: 100 mg Documented By: BROLevi Apixaban (Apixaban 2.5 Mg Tablet) 2.5 mg PO BID [facility] Last Admin: 01/07/24 09:04 Dose: 2.5 mg Documented By: BROB Bupropion HCl (Bupropion Hcl Xl 150 Mg Tab.Er.24h) 150 mg PO BEDTIME [facility] Last Admin: 01/06/24 21:33 Dose: 150 mg Documented By: DITOLC Calcium Carbonate (Calcium Carbonate 750 Mg Tab.Chew) 750 mg PO Q4H PRN PRN Reason: Heartburn Cefuroxime Axetil (Cefuroxime Axetil 500 Mg Tablet) 500 mg PO BID [facility] Stop: 01/10/24 21:00 Last Admin: 01/07/24 09:00 Dose: 500 mg Documented By: ARGELIA Glucose (Glucose Gel 15 Gm Gel..Gram.) 15 gm PO Q15M PRN; Protocol PRN Reason: per Hypoglycemia Standing Ord. Last Admin: 01/07/24 05:36 Dose: 15 gm Documented By: CAIT Guaifenesin/Codeine Phosphate (Guaifen/Codeine Sf 200/20/10ml 10 Ml Liquid) 10 ml PO Q4H PRN PRN Reason: Cough Last Admin: 01/06/24 21:34 Dose: 10 ml Documented By: ABETOTONY Dextrose (D10) 250 mls @ 750 mls/hr IV Q15M PRN PRN Reason: per Hypoglycemia Standing Ord. Last Infusion: 01/06/24 18:14 Dose: Infused Documented By: ABETOTONY Dextrose (D10) 250 mls @ 750 mls/hr IV Q15M PRN PRN Reason: per Hypoglycemia Standing Ord. Dextrose (D10) 250 mls @ 750 mls/hr IV Q15M PRN; Protocol PRN Reason: per Hypoglycemia Standing Ord. Last Infusion: 01/06/24 22:57 Dose: Infused Documented By: SYEDA Dextrose (D10) 1,000 mls @ 50 mls/hr IVCONT .Q20H [facility] Last Infusion: 01/07/24 09:49 Dose: 0 mls/hr Documented By: ARGELIA Insulin Human Lispro (Insulin Lispro 100 Unit/Ml 3 Ml Vial) 0 unit SUBCUT QIDAS [facility]; Protocol Last Admin: 01/07/24 17:37 Dose: Not Given Documented By: JESSICA Non-Admin Reason: No Insulin Coverage Levothyroxine Sodium (Levothyroxine Sodium 75 Mcg Tablet) 75 mcg PO DAILY@0630 [facility] Last Admin: 01/07/24 05:40 Dose: 75 mcg Documented By: CAIT Lidocaine HCl (Lidocaine Hcl 1 % Mpf 2 Ml Vial) 2 ml INFILTRATI MOWEFR ONE Stop: 01/08/24 10:15 Magnesium Hydroxide (Milk Of Magnesia 30 Ml Oral.Susp) 30 ml PO DAILY PRN PRN Reason: Constipation Melatonin (Melatonin 3 Mg Tablet) 6 mg PO BEDTIME PRN PRN Reason: Insomnia Midodrine (Midodrine Hcl 10 Mg Tablet) 10 mg PO MoWeFr@0900 [facility] Last Admin: 01/06/24 09:58 Dose: Not Given Documented By: LUCIANO Non-Admin Reason: See Note Ondansetron HCl (Ondansetron Hcl 4 Mg/2 Ml Vial) 4 mg IVPUSH Q8H PRN PRN Reason: Nausea and Vomiting Sevelamer Carbonate (Sevelamer Carbonate Tablet 800 Mg Tablet) 1,600 mg PO TID [facility] Last Admin: 01/07/24 16:53 Dose: Not Given Documented By: JESSICA Non-Admin Reason: dialysis Sodium Chloride (0.9 % Sodium Chloride Flush 3 Ml Syringe) 3 ml IVFLUSH QSHIFT [facility] Last Admin: 01/07/24 17:37 Dose: Not Given Documented By: JESSICA Non-Admin Reason: No Access Torsemide (Torsemide 20 Mg Tablet) 40 mg PO SuTuThSa@0900 [facility]; Protocol Last Admin: 01/07/24 09:04 Dose: 40 mg Documented By: ARGELIA Labs 01/07/24 04:17 01/07/24 04:17 Labs: Laboratory Results - last 24 hr 01/06/24 01/06/24 01/06/24 18:18 21:06 22:07 MCV MCH MCHC RDW Plt Count MPV Immature Gran % (Auto) Neut % (Auto) Lymph % (Auto) Kleberg % (Auto) Eos % (Auto) Baso % (Auto) Lymph # (Auto) Kleberg # (Auto) Eos # (Auto) Baso # (Auto) Abs Immat Gran (auto) Absolute Neuts (auto) Absolute Nucleated RBC Nucleated RBC % (auto) Anion Gap Estim Creat Clear Calc Estimated GFR POC Glucose 114 48 L* 48 L* Random Glucose Estimat Average Glucose Hemoglobin A1c % Calcium 01/06/24 01/07/24 01/07/24 23:56 01:57 02:30 MCV MCH MCHC RDW Plt Count MPV Immature Gran % (Auto) Neut % (Auto) Lymph % (Auto) Kleberg % (Auto) Eos % (Auto) Baso % (Auto) Lymph # (Auto) Kleberg # (Auto) Eos # (Auto) Baso # (Auto) Abs Immat Gran (auto) Absolute Neuts (auto) Absolute Nucleated RBC Nucleated RBC % (auto) Anion Gap Estim Creat Clear Calc Estimated GFR POC Glucose 76 63 58 L* Random Glucose Estimat Average Glucose Hemoglobin A1c % Calcium 01/07/24 01/07/24 01/07/24 02:52 03:57 04:17 MCV 110.7 H MCH 34.8 H MCHC 31.4 RDW 14.0 Plt Count 105 L MPV 9.5 Immature Gran % (Auto) 1.0 H Neut % (Auto) 73.9 H Lymph % (Auto) 11.8 L Kleberg % (Auto) 11.2 H Eos % (Auto) 1.9 Baso % (Auto) 0.2 Lymph # (Auto) 1.1 L Kleberg # (Auto) 1.0 Eos # (Auto) 0.2 Baso # (Auto) 0.0 Abs Immat Gran (auto) 0.09 H Absolute Neuts (auto) 6.8 Absolute Nucleated RBC 0.000 Nucleated RBC % (auto) 0.0 Anion Gap 18 Estim Creat Clear Calc 6.9 Estimated GFR 5 POC Glucose 55 L* 52 L* Random Glucose 57 L* Estimat Average Glucose 85 Hemoglobin A1c % 4.6 Calcium 8.6 01/07/24 01/07/24 01/07/24 05:25 07:05 09:20 MCV MCH MCHC RDW Plt Count MPV Immature Gran % (Auto) Neut % (Auto) Lymph % (Auto) Kleberg % (Auto) Eos % (Auto) Baso % (Auto) Lymph # (Auto) Kleberg # (Auto) Eos # (Auto) Baso # (Auto) Abs Immat Gran (auto) Absolute Neuts (auto) Absolute Nucleated RBC Nucleated RBC % (auto) Anion Gap Estim Creat Clear Calc Estimated GFR POC Glucose 63 65 70 Random Glucose Estimat Average Glucose Hemoglobin A1c % Calcium 01/07/24 01/07/24 01/07/24 11:16 13:17 17:11 MCV MCH MCHC RDW Plt Count MPV Immature Gran % (Auto) Neut % (Auto) Lymph % (Auto) Kleberg % (Auto) Eos % (Auto) Baso % (Auto) Lymph # (Auto) Kleberg # (Auto) Eos # (Auto) Baso # (Auto) Abs Immat Gran (auto) Absolute Neuts (auto) Absolute Nucleated RBC Nucleated RBC % (auto) Anion Gap Estim Creat Clear Calc Estimated GFR POC Glucose 64 59 L* 67 Random Glucose Estimat Average Glucose Hemoglobin A1c % Calcium Assessment and Plan (1) End stage chronic kidney disease: Status: Acute (2) Hypoglycemia: Status: Acute Plan 78-year-old male with a PMH significant for?paroxysmal AFib on Eliquis, HLD, [id number] type 2 diabetes, ESRD on HD M/W/F, orthostatic hypotension, hypothyroidism, and mood disorder who initially presented to the ED 3 days prior on 01/02/2023 for generalized weakness, fatigue, and poor p.o. intake after almost losing consciousness after dialysis on 01/02. Was initially placed into physician observation awaiting STR placement. The patient is being admitted into the hospital for emergent dialysis with plan to discharge and send to rehab tomorrow. Generalized Weakness due to debility Awaiting STR placement ESRD On HD M/W/F Missed dialysis today, needs dialysis prior to discharge to SNF Elevated creatinine today, electrolytes WNL midodrine 10 mg prior to HD Continue torsemide Nephrology consult -going for hd Monitor on telemetry Follow BMP Hypoglycemia jaziel wheeler ,Hold glipizide Likely secondary to continuing glipizide in the setting of reduced p.o. intake POC q.2h UTI Started on cefuroxime 500 mg b.i.d. on 01/04/2024 Stop on 01/10/2024 at 21:00 Paroxysmal AFib Continue amiodarone, Eliquis Hypothyroidism Continue levothyroxine Mood disorder Continue bupropion Full Code DVT Prophylaxis: On Eliquis Patient will be admitted to the hospital under observation in order to receive hypoglycemia -persistent hypoglycemia -need ivf ,jaziel proctorley and respiratory status . Quality Stroke Does the patient have a stroke diagnosis?: No VTE Prior VTE?: No VTE Risk Level:: Medical - moderate - high VTE Device Contraindication: Treatment Not Indicated VTE Drug Contraindication: N/A - Med Ordered
--- NOTE | 2024-01-07 18:08 | PC.NURSE ---
This RN placed a # 20G peripheral angio to the R upper arm via ultrasound. + blood return and flushes with ease pt tolerated well and denied c/o discomfort Pallavi DUMONT in ED overflow was notified. pt was tranported back to the ED overflow dept
[2024-01-07 18:32] LABS: Glucose, Whole Blood 49 mg/dL (60-115)
[2024-01-07 18:35] VITALS: BP 135/61; PULSE 67; RESP 12; TEMP 36.1; O2SAT 97
[2024-01-07 18:50] LABS: Glucose, Whole Blood 94 mg/dL (60-115)
--- NOTE | 2024-01-07 19:52 | PC.NURSE ---
at 1900, report received at this time, and assume care of pt
[2024-01-07 21:04] LABS: Glucose, Whole Blood 96 mg/dL (60-115)
[2024-01-07] MEDS: buPROPion HCl XL 150 MG TAB.ER.24H PO (21:05)
--- NOTE | 2024-01-07 23:22 | PC.NURSE ---
was called into room by TEACHER AIDE, pt had partial pulled out his IV in the right upper arm, it had infiltrated. Right arm puffy, informed dr Rodríguez, no new orders. Pt asked, Why do I need an IV? tried to explain to pt, why he needed the IV. Cold packs applied
[2024-01-07 23:34] VITALS: BP 137/66; PULSE 66; RESP 20; TEMP 37.5; O2SAT 93
[2024-01-07 23:37] LABS: Glucose, Whole Blood 84 mg/dL (60-115)
--- NOTE | 2024-01-08 00:14 | PC.NURSE ---
pt states he is fine, IV is working well, no s/s of acute distress, plan of care ongoing.
[2024-01-08 05:12] VITALS: BP 129/90; PULSE 63; RESP 16; TEMP 36.8; O2SAT 95
[2024-01-08] MEDS: Levothyroxine Sodium 75 MCG TABLET PO (06:28)
[2024-01-08 07:39] LABS: Glucose, Whole Blood 99 mg/dL (60-115)
[2024-01-08 08:00] VITALS: BP 147/64; PULSE 70; RESP 14; TEMP 36.4; O2SAT 92
--- NOTE | 2024-01-08 08:15 | W.PM.DNNEP ---
Subjective Subjective Date of Service: 01/08/24 Interval history: Pt is a 78-year-old male with medical history significant for?paroxysmal AFib on Eliquis, HLD, wll-fgenlbj-byzeyxdxc type 2 diabetes, ESRD on HD M/W/F, orthostatic hypotension, hypothyroidism, and mood disorder, presented with generalized weakness, fatigue and poor PO intake. Last HD was on Saturday, 01/02 missed dialysis yesterday (Saturday, 01/05), due to feeling unwell, came to ED. Pt is covid positive, he is stable but is unable to care for him at home, needs to be discharged to rehab, rehab requires HD completed before discharge. pt is also being treated with PO abx for UTI sicne 01/03 Pt is followed by nephrology, Dr Marshall as an outpatinet. chronic anemia, H&H 8.8 and 28 yesterday, received epogen 20,000 units with HD electrolytes within normal limits, including potassium, calcium pt reports breathing is more comfortable today. no tremors patient is alert and oriented denies nausea, vomiting, pruritus reports he has been passing urine with urinal Physical Exam Vital Signs: Vital Signs: Last Vital Signs Temp 97.6 F 01/08/24 08:00 Pulse 70 01/08/24 08:00 Resp 14 01/08/24 08:00 BP 147/64 H 01/08/24 08:00 Pulse Ox 92 01/08/24 08:00 O2 Del Method Room Air 01/08/24 08:00 BMI result Body Mass Index 35.9 Const: General: comfortable and no acute distress Orientation/consciousness: oriented to person, oriented to place and oriented to time Neck: Neck: Yes no JVD Resp: Effort & Inspection: able to speak in complete sentences Auscultation: clear to auscultation bilaterally Cardio: Jugular venous distension: no JVD Rate: regular rate Rhythm: regular rhythm Heart sounds: S1 normal heart sound present and S2 normal heart sound present GI: Palpation (GI): Soft to palpation Rectal Exam - Male: No tenderness : General: Yes no CVA tenderness Back/Spine/Pelvis: Back: no CVA tenderness Skin: Rashes: no rashes Neuro: General: oriented to person, oriented to place and oriented to time Extrem: General: Yes normal to inspection and Yes edema (trace BLE edema) Assessment & Plan Assessment and plan (1) End stage chronic kidney disease: Status: Acute Plan ESRD patient who missed HD Friday 01/05 due to fatigue/weakness likely secondary to covid infection and reduced PO intake. patient will received dialysis yesterday, plan for HD today (Saturday) to get him back on his regular M,W,F schedule. Pt is agreeable to this plan at bedside. patient has left upper extremity AV fistula with palpable thrill and bruit to auscultation patient reports his energy level is improving, denies nausea/vomiting/pruritus/tremor, no uremic symptoms present patient has baseline anemia that has worsened, administer epogen as needed. calcium within normal limits, will check phosphorous level patient appears euvolemic. Will optimize his fluids with dialysis. Discussed with Dr Mendoza. Time Spent With Patient Time: Total time managing care of this patient today ____ minutes. Procedures Date of Service Date of Service: 01/08/24
[2024-01-08] MEDS: Amiodarone HCL 200 MG TABLET 100 MG PO (08:46)
[2024-01-08] MEDS: Sevelamer Carbonate Tablet 800 MG TABLET 1600 MG PO ×3 (08:46→21:07)
[2024-01-08] MEDS: cefuroxime axetiL 500 MG TABLET PO ×2 (08:47→21:07)
[2024-01-08] MEDS: Midodrine HCl 10 MG TABLET PO (08:47)
[2024-01-08] MEDS: Apixaban 2.5 MG TABLET PO ×2 (08:47→21:07)
--- NOTE | 2024-01-08 11:07 | PC.NURSE ---
Assumed care of this patient at 1100, patient currently in diaylsis. Plan for DC to encompass if sugars maintained in place.
--- NOTE | 2024-01-08 12:20 | PC.NURSE ---
yarn polishing machine operator called, stating patient's pressure is 95/38, patient states he usually takes 1 dose of midodrine before dialysis, 1 dose during dialysis if needed. Patient did get 1 dose before leaving for HD, custom bike builder unable to reach out to doctor, does not have tiger text, asking if this RN can reach out to covering doctor. Dr. Cortez made aware via tiger text, states he will place PRN midodrine order. yarn polishing machine operator called back, made aware order is in process.
--- NOTE | 2024-01-08 12:49 | MHC.CM.PN ---
ARRANGEMENTS COMPLETED FOR PT TO GO TO [facility] 01/08 AT 3:00, GUERDA NOTIFIED DR KHALIL AWARE
--- NOTE | 2024-01-08 13:34 | PC.NURSE ---
RN to RN phone report recieved from Sameera, 3L taken off, pressure 102/36 HR 107, did not give the PRN midodrine. Transport notified, will be transported back to room when available.
[2024-01-08] MEDS: Lidocaine HCl 1 % MPF 2 ML VIAL INFILTRATI (14:09)
[2024-01-08 14:10] VITALS: BP 128/60; PULSE 69; RESP 16; TEMP 36.7; O2SAT 98
[2024-01-08 14:18] LABS: Glucose, Whole Blood 131 mg/dL (60-115)
--- NOTE | 2024-01-08 15:23 | P.PNIM_ITS ---
Subjective Subjective Date of Service: 01/08/24 Interval History: Hypoglycemia,esrd Review of Systems currently asymptomaticand fs improvign. Going for hemodialysis Physical Exam 2 Vital Signs: Vital Signs: Last Vital Signs Temp 98.1 F 01/08/24 14:10 Pulse 69 01/08/24 14:10 Resp 16 01/08/24 14:10 BP 128/60 01/08/24 14:10 Pulse Ox 98 01/08/24 14:10 O2 Del Method Room Air 01/08/24 14:10 BMI result Body Mass Index 35.9 Appearance: Alert.? Oriented X3.? cvs: rrr, [id number] , no murmur res: clear to auscultation ,no rales abd: no rebound or guarding ,nt, bs present. ext pulses present , no cyanosis. neuro: axo3 , nonfocal Objective Data Active Medications Acetaminophen (Acetaminophen 325 Mg Tablet) 650 mg PO Q6H PRN PRN Reason: Pain, Mild (Pain Scale 1-3), fever or headache Albuterol Sulfate (Albuterol Sulfate 90 Mcg 8 Gm Inhaler) 2 puff INHALE RQ4H PRN PRN Reason: Wheezing Amiodarone HCl (Amiodarone Hcl 200 Mg Tablet) 100 mg PO DAILY [facility] Last Admin: 01/08/24 08:46 Dose: 100 mg Documented By: AYLEEN Apixaban (Apixaban 2.5 Mg Tablet) 2.5 mg PO BID [facility] Last Admin: 01/08/24 08:47 Dose: 2.5 mg Documented By: AYLEEN Bupropion HCl (Bupropion Hcl Xl 150 Mg Tab.Er.24h) 150 mg PO BEDTIME [facility] Last Admin: 01/07/24 21:05 Dose: 150 mg Documented By: ARABELLA Calcium Carbonate (Calcium Carbonate 750 Mg Tab.Chew) 750 mg PO Q4H PRN PRN Reason: Heartburn Cefuroxime Axetil (Cefuroxime Axetil 500 Mg Tablet) 500 mg PO BID [facility] Stop: 01/10/24 21:00 Last Admin: 01/08/24 08:47 Dose: 500 mg Documented By: AYLEEN Glucose (Glucose Gel 15 Gm Gel..Gram.) 15 gm PO Q15M PRN; Protocol PRN Reason: per Hypoglycemia Standing Ord. Last Admin: 01/07/24 05:36 Dose: 15 gm Documented By: CAIT Guaifenesin/Codeine Phosphate (Guaifen/Codeine Sf 200/20/10ml 10 Ml Liquid) 10 ml PO Q4H PRN PRN Reason: Cough Last Admin: 01/06/24 21:34 Dose: 10 ml Documented By: SYEDA Dextrose (D10) 250 mls @ 750 mls/hr IV Q15M PRN PRN Reason: per Hypoglycemia Standing Ord. Last Infusion: 01/06/24 18:14 Dose: Infused Documented By: SYEDA Dextrose (D10) 250 mls @ 750 mls/hr IV Q15M PRN PRN Reason: per Hypoglycemia Standing Ord. Dextrose (D10) 250 mls @ 750 mls/hr IV Q15M PRN; Protocol PRN Reason: per Hypoglycemia Standing Ord. Last Infusion: 01/06/24 22:57 Dose: Infused Documented By: SYEDA Insulin Human Lispro (Insulin Lispro 100 Unit/Ml 3 Ml Vial) [facility]; Protocol Last Admin: 01/08/24 14:09 Dose: Not Given Documented By: SYEDA Non-Admin Reason: No Insulin Coverage Levothyroxine Sodium (Levothyroxine Sodium 75 Mcg Tablet) 75 mcg PO DAILY@0630 [facility] Last Admin: 01/08/24 06:28 Dose: 75 mcg Documented By: ARABELLA Magnesium Hydroxide (Milk Of Magnesia 30 Ml Oral.Susp) 30 ml PO DAILY PRN PRN Reason: Constipation Melatonin (Melatonin 3 Mg Tablet) 6 mg PO BEDTIME PRN PRN Reason: Insomnia Midodrine (Midodrine Hcl 10 Mg Tablet) 10 mg PO MoWeFr@0900 [facility] Last Admin: 01/08/24 08:47 Dose: 10 mg Documented By: AYLEEN Ondansetron HCl (Ondansetron Hcl 4 Mg/2 Ml Vial) 4 mg IVPUSH Q8H PRN PRN Reason: Nausea and Vomiting Sevelamer Carbonate (Sevelamer Carbonate Tablet 800 Mg Tablet) 1,600 mg PO TID [facility] Last Admin: 01/08/24 08:46 Dose: 1,600 mg Documented By: AYLEEN Sodium Chloride (0.9 % Sodium Chloride Flush 3 Ml Syringe) 3 ml IVFLUSH [facility] Last Admin: 01/08/24 08:27 Dose: Not Given Documented By: AYLEEN Non-Admin Reason: IV Running Torsemide (Torsemide 20 Mg Tablet) 40 mg PO SuTuThSa@0900 [facility]; Protocol Last Admin: 01/07/24 09:04 Dose: 40 mg Documented By: ARGELIA Labs 01/07/24 04:17 01/07/24 04:17 Labs: Laboratory Results - last 24 hr 01/07/24 01/07/24 01/07/24 17:11 18:24 18:46 POC Glucose 67 49 L* 94 01/07/24 01/07/24 01/08/24 21:00 23:32 07:34 POC Glucose 96 84 99 01/08/24 14:08 POC Glucose 131 H Assessment and Plan (1) End stage chronic kidney disease: Status: Acute (2) Hypoglycemia: Status: Acute Plan 78-year-old male with a PMH significant for?paroxysmal AFib on Eliquis, HLD, mkj-dclppeo-owkvcygnj type 2 diabetes, ESRD on HD M/W/F, orthostatic hypotension, hypothyroidism, and mood disorder who initially presented to the ED 3 days prior on 01/02/2023 for generalized weakness, fatigue, and poor p.o. intake after almost losing consciousness after dialysis on 01/02. Was initially placed into physician observation awaiting STR placement. The patient is being admitted into the hospital for emergent dialysis with plan to discharge and send to rehab tomorrow. Generalized Weakness due to debility Awaiting STR placement ESRD On HD M/W/F Missed dialysis today, needs dialysis prior to discharge to SNF Elevated creatinine today, electrolytes WNL blood pressure flactuating continue midodrine 10 mg , torsemide Nephrology consult -going for hd Monitor on telemetry Follow BMP Hypoglycemia-improving moniter fs -since yesterday evening fs in above 90 -130,also off d10 since this morning. hba1c is 4.6 Likely secondary to continuing glipizide in the setting of reduced p.o. intake will switch POC q4hr UTI Started on cefuroxime 500 mg b.i.d. on 01/04/2024 Stop on 01/10/2024 at 21:00 Paroxysmal AFib Continue amiodarone, Eliquis Hypothyroidism Continue levothyroxine Mood disorder Continue bupropion Full Code DVT Prophylaxis: On Eliquis ongoing need -awiting rehab. Quality Stroke Does the patient have a stroke diagnosis?: No VTE Prior VTE?: No VTE Risk Level:: Medical - moderate - high VTE Device Contraindication: Treatment Not Indicated VTE Drug Contraindication: N/A - Med Ordered
[2024-01-08] MEDS: 0.9 % Sodium Chloride Flush 3 ML SYRINGE IVFLUSH ×2 (15:56→21:16)
[2024-01-08 15:59] LABS: Glucose, Whole Blood 163 mg/dL (60-115)
--- NOTE | 2024-01-08 16:26 | PC.NURSE ---
Patient's POC checked, 163, Dr. Cortez notified as patient qualifies for [address] Cortez does not want patient given insulin until POC > 200, dose held.
[2024-01-08 20:42] VITALS: BP 153/63; PULSE 67; RESP 17; TEMP 36.3; O2SAT 97
[2024-01-08 20:58] LABS: Glucose, Whole Blood 214 mg/dL (60-115)
[2024-01-08] MEDS: buPROPion HCl XL 150 MG TAB.ER.24H PO (21:16)
[2024-01-08] MEDS: Insulin Lispro 100 UNIT/ML 3 ML VIAL SUBCUT (21:16)
[2024-01-08 23:32] VITALS: BP 90/55; PULSE 79; RESP 16; TEMP 36.7; O2SAT 98
[2024-01-09] VITALS: BP 126/60; PULSE 73
[2024-01-09 03:30] VITALS: BP 157/70; PULSE 76; RESP 16; TEMP 36.9; O2SAT 97
[2024-01-09] MEDS: Levothyroxine Sodium 75 MCG TABLET PO (06:36)
[2024-01-09 07:19] LABS: Anion Gap 15 (12-20); Blood Urea Nitrogen 41 mg/dL (9-16); Calcium 9.5 mg/dL (8.4-10.2); Carbon Dioxide 31 mmol/L (22-29); Chloride 101 mmol/L (96-108); Creatinine Clr Calc Pharmacy 12.9; Estimated Glomerular Filt Rate 10; Glucose Random 106 mg/dL (60-115); Phosphorus 3.2 mg/dL (2.7-4.5); Sodium 143 mmol/L (135-145)
[2024-01-09 07:42] LABS: Glucose, Whole Blood 110 mg/dL (60-115)
[2024-01-09 08:00] VITALS: BP 123/54; PULSE 76; RESP 20; TEMP 36.4; O2SAT 96
--- NOTE | 2024-01-09 08:30 | P.PNNP_ITS ---
Subjective Subjective Date of Service: 01/09/24 Interval history: Pt is a 78-year-old male with medical history significant for?paroxysmal AFib on Eliquis, HLD, [id number] type 2 diabetes, ESRD on HD M/W/F, orthostatic hypotension. missed dialysis Saturday, 01/05, due to feeling unwell, came to ED. Pt is covid positive, he is stable but is unable to care for him at home, needs to be discharged to rehab, rehab requires HD completed before discharge. pt is also being treated with PO abx for UTI sicne 01/03 Pt is followed by nephrology, Dr Marshall as an outpatinet. chronic anemia, H&H 8.8 and 01/06, received epogen 20,000 units with HD on Saturday electrolytes within normal limits, including potassium, calcium pt reports breathing is comfortable today. no tremors patient is alert and oriented denies nausea, vomiting, pruritus reports he has been passing urine with urinal plan for discharge to rehab today. Physical Exam 2 Vital Signs: Vital Signs: Last Vital Signs Temp 97.6 F 01/09/24 08:00 Pulse 76 01/09/24 08:00 Resp 20 01/09/24 08:00 BP 123/54 L 01/09/24 08:00 Pulse Ox 96 01/09/24 08:00 O2 Del Method Room Air 01/09/24 08:00 BMI result Body Mass Index 35.9 Const: General: comfortable and no acute distress O rientation/consciousness: oriented to person, oriented to place and oriented to time Neck: Neck: Yes no JVD Resp: Effort & Inspection: able to speak in complete sentences A uscultation: clear to auscultation bilaterally Cardio: Jugular venous distension: no JVD Rate: regular rate Rhythm: r egular rhythm Heart sounds: S1 normal heart sound present and S2 normal heart sound present GI: Palpation (GI): Soft to palpation Rectal Exam - Male: No tenderness : General: Yes no CVA tenderness Back/Spine/Pelvis: Back: no CVA tenderness Skin: Rashes: no rashes Neuro: General: oriented to person, oriented to place and oriented to time Extrem: General: Yes normal to inspection and Yes edema (trace BLE edema) Objective Data Labs 01/07/24 04:17 01/09/24 06:27 Labs: Laboratory Results - last 24 hr 01/08/24 01/08/24 01/08/24 14:08 15:55 20:53 Hold Purple Top Sodium Potassium Chloride Carbon Dioxide Anion Gap BUN Creatinine Estim Creat Clear Calc Estimated GFR POC Glucose 131 H 163 H 214 H Random Glucose Calcium Phosphorus 01/09/24 01/09/24 06:27 07:31 Hold Purple Top SEE NOTE Sodium 143 Potassium 4.0 Chloride 101 Carbon Dioxide 31 H Anion Gap 15 BUN 41 H Creatinine 5.59 H* Estim Creat Clear Calc 12.9 Estimated GFR 10 POC Glucose 110 Random Glucose 106 Calcium 9.5 D Phosphorus 3.2 Microbiology Microbiology Results: Microbiology 01/03/24 18:10 Blood - Venous Blood Culture - Final No growth after 5 days. 01/03/24 17:48 Blood - Venous Blood Culture - Final No growth after 5 days. 01/04/24 Unknown Urine clean catch - Clean Catch Midstream Urine Culture - Final Klebsiella pneumoniae Procedures Date of Service Date of Service: 01/09/24 Assessment & Plan Assessment and plan (1) End stage chronic kidney disease: Status: Acute Plan ESRD patient who missed HD Friday 01/05 due to fatigue/weakness likely secondary to covid infection and reduced PO intake. Pt doing well and receiving his HD M,W,F schedule (last HD yesterday). Clinically doing well. patient has left upper extremity AV fistula with palpable thrill and bruit to auscultation patient reports his energy level continues to improve, denies nausea/vomiting/pruritus/tremor, no uremic symptoms present patient has baseline anemia that has worsened, administer epogen as needed. calcium and phosphorous levels within normal limits patient appears euvolemic plan for discharge to rehab. Discussed with Dr Mendoza. Time Spent With Patient Time: Total time managing care of this patient today ____ minutes. Progress Note: Quality Stroke Does the patient have a stroke diagnosis?: No
--- NOTE | 2024-01-09 08:32 | P.DS_ITS ---
DS: Providers Provider Date of Service: 01/09/24 Date of admission: 01/06/24 20:16 Date of discharge: 01/09/24 Primary care physician: Na White MD Consults: 01/06/24 01:18 Consult to Nephrology Routine Consulting Provider: [facility] Reason for consultation: hemodialysis Has provider been notified: Yes Attending physician on discharge: Bethanie Cortez Discharging clinician: Bethanie Cortez DS: Diagnosis Discharge Diagnosis (1) End stage chronic kidney disease: Status: Acute (2) Hypoglycemia: Status: Acute DS: Summary Hospital Course Hospital Course: HPI: 78-year-old male with a PMH significant for?paroxysmal AFib on Eliquis, HLD, zya-dqysywa-foqcfjmum type 2 diabetes, ESRD on HD M/W/F, orthostatic hypotension, hypothyroidism, and mood disorder who initially presented to the ED 3 days prior on 01/02/2023 for generalized weakness, fatigue, and poor p.o. int ioana after almost losing consciousness after dialysis on 01/02. Patient apparently had been recently diagnosed with COVID 2 weeks prior and since then has not been eating much and feeling much more fatigued than normal. Workup at that time was largely negative except for UTI and was started on cefuroxime. Was then placed in physician observation with plan for rehab placement as patient's is unable to take care of him at home. Case management found placement at [facility], though they will not accept him without him having his scheduled dialysis today as they are unable to arrange for transportation to dialysis today. The patient will thus be admitted into the hospital for emergent dialysis with plan to discharge and send to rehab tomorrow. Review of patient's labs from this afternoon indicate no significant electrolyte abnormalities, though do show worsening kidney function of 9.75, elevated from 5.92 on 01/03/2024. Patient also noted to be hypoglycemic with POC of 48. Patient was given 1 amp of glucagon with improvement of POC to 114, but repeat POC 2 hours later showed glucose of 48. The patient himself reports feeling lightheaded and dizzy, which is new. On Fr iday patient reported he only felt weak. States has not been eating or drinking much. Otherwise has no acute medical complaints. Denies fever, chills, nausea, vomiting, abdominal pain. No chest pain/pressure, palpitations. Denies shortness or breath, difficulty breathing, cough. Hospital course: Patient was admitted for dialysis and rehab placement, in addition patient was found to have hypoglycemia in the setting of glipizide/esrd: Patient received dialysis, also received D10 for hypoglycemia, off IV fluids now and fingersticks are maintaining in 100-200 range. Hemoglobin A1c is 4.6, hence glipizide is discontinued. Monitor fingersticks in rehab and consider repeating hemoglobin A1c if fingersticks. Patient is COVID positive on 01/03/24: Patient asymptomatic, no hypoxia. Patient will be going to the rehab. Above management discussed with the patient detail length he understand and in agreement with the above plan, time spent 40 minute. Time Attestation Total time managing care of this patient today: 40 mintues. Discharge Coordination Time (in mins): 40min Quality: Safe Use of Opioids Does Pt have an Active Cancer Diagnosis on the Problem List?: No Quality: Stroke Does the patient have a stroke diagnosis?: No Physical Exam Vital Signs: Vital Signs: Last Vital Signs Temp 98.4 F 01/09/24 03:30 Pulse 76 01/09/24 03:30 Resp 16 01/09/24 03:30 BP 157/70 H 01/09/24 03:30 Pulse Ox 97 01/09/24 03:30 O2 Del Method Room Air 01/09/24 03:30 BMI result Body Mass Index 35.9 Appearance: Alert.? Oriented X3.? cvs: rrr, [id number] , no murmur res: clear to auscultation ,no rales abd: no rebound or guarding ,nt, bs present. ext pulses present , no cyanosis. neuro: axo3 , nonfocal DS: Data Data Completed and Pending Labs on day of discharge: Laboratory Results - last 24 hr 01/08/24 01/08/24 01/08/24 14:08 15:55 20:53 Hold Purple Top Sodium Potassium Chloride Carbon Dioxide Anion Gap BUN Creatinine Estim Creat Clear Calc Estimated GFR POC Glucose 131 H 163 H 214 H Random Glucose Calcium Phosphorus 01/09/24 01/09/24 06:27 07:31 Hold Purple Top SEE NOTE Sodium 143 Potassium 4.0 Chloride 101 Carbon Dioxide 31 H Anion Gap 15 BUN 41 H Creatinine 5.59 H* Estim Creat Clear Calc 12.9 Estimated GFR 10 POC Glucose 110 Random Glucose 106 Calcium 9.5 D Phosphorus 3.2 Imaging Chest x-ray: Radiologist's impression: ITS Impressions Chest X-Ray 01/03/24 17:06 IMPRESSION: Unremarkable chest examination. Electronically signed by: Deandre Lunsford MD 01/03/2024 07:10 PM EDT RP Knee X-Ray 01/03/24 23:04 IMPRESSION: 1. Osteopenia. No acute fracture or dislocation. 2. Moderate-sized suprapatellar knee joint effusion. 3. 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 Electronically signed by: Nickie Cordova MD 01/03/2024 11:32 PM EDT RP Discharge Plan Discharge Anticipated Discharge Date/Time: 01/09/24 08:27 Patient Disposition: Xfer SNF Discharge Diagnosis: ESRD, hypoglycemia Referrals: Na White MD [Primary Care Provider] - 1 Week Discharge Medications: New cefuroxime axetil 500 mg Tablet 500 mg PO BID Qty: 1 0RF Continued levothyroxine 75 mcg capsule 75 mcg PO DAILY Qty: 90 3RF amiodarone 200 mg tablet 100 mg PO DAILY 90 Days Qty: 45 3RF atorvastatin 20 mg tablet 20 mg PO BEDTIME torsemide 20 mg tablet 40 mg PO SUTUTHSA Rx Instructions: non dialysis days, sun, tues, thurs, sat. sevelamer HCl 800 mg tablet 1,600 mg PO TID bupropion HCl 150 mg tablet extended release 24 hr 150 mg PO BEDTIME midodrine 10 mg tablet 10 mg PO MOWEFR Rx Instructions: prior to dialysis Eliquis 2.5 mg tablet 2.5 mg PO BID glucosamine-chondroitin [Osteo Bi-Flex] 250-200 mg tablet 1 tab PO TIDWM Rx Instructions: give after food/meal melatonin 5 mg capsule 5 mg PO BEDTIME Discontinued glipizide 2.5 mg tablet extended release 24hr 2.5 mg PO DAILY Qty: 90 3RF Discharge Orders: Discharge Order (Routine); Ordered 01/09/24 Ordered By: Bethanie Cortez Diet: Advance to usual diet Activity on Discharge: As tolerated Stand Alone Forms: Patient Portal Discharge page Print Language: [place] Care Plan Goals: Patient was admitted for dialysis and rehab placement, in addition patient was found to have hypoglycemia in the setting of glipizide/esrd: Patient received dialysis, also received D10 for hypoglycemia, off IV fluids now and fingersticks are maintaining in 100-200 range. Hemoglobin A1c is 4.6, hence glipizide is discontinued. Monitor fingersticks in rehab and consider repeating hemoglobin A1c if fingersticks. Patient will be going to the rehab. Above management discussed with the patient detail length he understand and in agreement with the above plan, time spent 40 minute. Health Concerns: As above. Plan of Treatment: As above. Assessment: As above.
[2024-01-09] MEDS: cefuroxime axetiL 500 MG TABLET PO (08:43)
[2024-01-09] MEDS: Sevelamer Carbonate Tablet 800 MG TABLET 1600 MG PO ×2 (08:44→15:36)
[2024-01-09] MEDS: Amiodarone HCL 200 MG TABLET 100 MG PO (08:44)
[2024-01-09] MEDS: Apixaban 2.5 MG TABLET PO (08:44)
[2024-01-09] MEDS: Torsemide 20 MG TABLET 40 MG PO (08:44)
[2024-01-09] MEDS: 0.9 % Sodium Chloride Flush 3 ML SYRINGE IVFLUSH (08:50)
[2024-01-09 11:21] LABS: Glucose, Whole Blood 153 mg/dL (60-115)
--- NOTE | 2024-01-09 12:27 | MHC.CM.PN ---
Pt has been medically cleared for DC, he will go to [facility] acute re[facility] today via BLS.
[2024-01-09] MEDS: Insulin Lispro 100 UNIT/ML 3 ML VIAL SUBCUT (12:35)
[2024-01-09 15:27] VITALS: BP 150/71; PULSE 75; RESP 18; TEMP 36.3; O2SAT 98
== END 2024-01-09 15:52 | disposition skilled nursing facility (03) ==
LOC: HO.ED 01-06 18:19 → HO.EDOVER 01-06 20:21 → HO.IMC 01-08 19:35
PROVIDERS: Nurse Practitioner Family; Physician Assistant Medical; Admitting Provider Student in an Organized Health Care Education/Training Program; Emergency Provider Internal Medicine; PCP Internal Medicine; Visit Provider Internal Medicine
DX: E11.649 Type 2 diabetes mellitus with hypoglycemia without coma (principal); E11.22 Type 2 diabetes mellitus with diabetic chronic kidney disease; I13.2 Hypertensive heart and chronic kidney disease with heart failure and with stage 5 chronic kidney disease, or end stage renal disease; I50.9 Heart failure, unspecified; N18.6 End stage renal disease; Z99.2 Dependence on renal dialysis; E78.5 Hyperlipidemia, unspecified; R06.02 Shortness of breath; M17.9 Osteoarthritis of knee, unspecified; I48.0 Paroxysmal atrial fibrillation; E03.9 Hypothyroidism, unspecified; D64.9 Anemia, unspecified; Z79.84 Long term (current) use of oral hypoglycemic drugs; Z11.52 Encounter for screening for COVID-19; Z79.899 Other long term (current) drug therapy; Z79.01 Long term (current) use of anticoagulants
CPT/HCPCS: 36415; 71045; 73560; 80048; 80053; 81001; 82947; 83036; 83605; 83735; 84100; 85025; 87040; 87086; 87088; 87186; 87635; 90999; 93005; 94640; 96360; 96361; 97163; 97530; 99222; 99285; J1610

== ENCOUNTER → 2024-01-06 20:16 | Outpatient (BNV) | payer MEDICARE, OTHER, SELFPAY | PROVIDERS: Admitting Provider Student in an Organized Health Care Education/Training Program; Emergency Provider Internal Medicine; PCP Internal Medicine; Visit Provider Nurse Practitioner Family | DX: N18.6 End stage renal disease (principal); Z99.2 Dependence on renal dialysis | CPT/HCPCS: 90935; 99232 ==

== ENCOUNTER → 2024-01-06 20:16 | Outpatient (BNV) | payer MEDICARE, OTHER, SELFPAY | PROVIDERS: Admitting Provider Student in an Organized Health Care Education/Training Program; Emergency Provider Internal Medicine; PCP Internal Medicine; Visit Provider Student in an Organized Health Care Education/Training Program | DX: E11.22 Type 2 diabetes mellitus with diabetic chronic kidney disease (principal); N18.6 End stage renal disease; Z99.2 Dependence on renal dialysis; E11.649 Type 2 diabetes mellitus with hypoglycemia without coma | CPT/HCPCS: 99222; 99231; 99239 ==

== ENCOUNTER 2024-01-27 15:04 | Outpatient (AMB) | payer MEDICARE, OTHER, SELFPAY ==
--- NOTE | 2024-01-27 15:06 | MHC.PC.OV ---
Vital Signs 01/27/24 15:08 Height 5 ft 8 in Weight 213 lb BMI 32.4 BP 114/66 Blood Pressure Location Rt brachial Position Sitting Pulse 81 Pulse Source Pulse Oximeter Pulse Oximetry (%) 99 Oxygen Delivery Method Room Air Intake Visit Reasons: LORA from [facility] Allergies oxycodone Adverse Reaction (Verified 01/27/24 15:11) Gastrointestinal Upset Tobacco use date assessed: 01/27/24 Fall risk assessment: 2 + Falls in past year Last assessed Fall Risk: 01/27/24 Dental Screening Dental Screen Date: 01/27/24 Did you have a dental visit in the last 12 months?: No Did you have a dental problem in the last 6 months where you did not have access to dental care?: No Was dental information given to patient?: Patient has dentist HPI HPI Comments History of Present Illness Details The patient is a 70-year-old male with a past medical history of CHF, hypertension, hyperlipidemia, atrial fibrillation, diabetes, hypothyroid, osteoarthritis, CKD, presenting for follow-up Diabetes: Up-to-date with eye exams. Last A1C in 4s. He restarted glipizide 2.5er because glucose was high at home Cardiovascular: Follows with Cardiology, PVC. Normalized EF. Denies chest pain, denies increased lower extremity edema -hospitalized 08/25/2021 for heart failure exacerbation requiring CPAP and complicated by HUSEYIN/right knee MSSA septic arthritis-had washout IV antibiotics. Was DC to rehab and then presented back to [facility] with worsening shortness of breath ARF CHF. PermCath placed in 8 she started 09/25/2021. Repeated washout and prolonged antibiotic and rehab course. Was kept on dialysis End-stage renal disease: Saturday. Started HD 10/25/2021 at [facility]. BP is running low. On midodrine Depression: On Wellbutrin. Is having increased depression and anxiety. Recent prolonged rehab stay following hospitalization. c/p right testicular pain for weeks/months worse recently. Colonoscopy last performed 2020 ROS see HPI PHYSICAL EXAM: GENERAL: Alert and oriented x 3. NAD EYES: EOMI. Anicteric. HENT: Moist mucous membranes. No scleral icterus. No cervical lymphadenopathy. LUNGS: Clear to auscultation bilaterally. CARDIOVASCULAR: Regular rate and rhythm. No murmur. No JVD. ABDOMEN: Soft, non-tender +bs EXTREMITIES: No edema. Non-tender. SKIN: Raw excoriated right inguinal area scrotal erythema, mild warmth and scattered maceration. NEUROLOGIC: No focal neurological deficits. CN II-XII grossly intact PSYCHIATRIC: Cooperative. 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) ELIF (obstructive sleep apnea) ESRD (end stage renal disease) NSVT (nonsustained ventricular tachycardia) HLD (hyperlipidemia) HTN (hypertension) Afib Congestive heart disease Dialysis complication Kidney failure Low blood pressure DM type 2 (diabetes mellitus, type 2) Gallbladder calculus Surgical History Hx of surgical procedure History of surgery History of umbilical hernia repair History of tonsillectomy and adenoidectomy Family History Maternal Grandmother Pancreatic cancer Mother Diabetes type 2, controlled Social History Household Members: Spouse Housing: House Do you presently have visiting nurse or other home services: No Alcohol intake: former Comment: MS LOIS, COVID+ Patient Tobacco Use Status: Former Tobacco user Tobacco use type: Cigarette e-Cigarette/Vaping Use: Never Used service: Yes ([employer]) Current occupational status: retired Cognitive needs: No Hearing needs: No Vision needs: Yes Questionnaire PHQ-9 Over the last 2 weeks, how often have you been bothered by any of the following problems? 1. Little interest or pleasure in doing things: nearly every day 2. Feeling down, depressed, or hopeless: more than half the days 3. Trouble falling or staying asleep, or sleeping too much: several days 4. Feeling tired or having little energy: several days 5. Poor appetite or overeating: several days 6. Feeling bad about yourself - or that you are a failure or have let yourself or your family down: more than half the days 7. Trouble concentrating on things, such as reading the newspaper or watching television: not at all 8. Moving or speaking so slowly that other people could have noticed. Or the opposite - being so fidgety or restless that you have been moving around a lot more than usual: not at all 9. Thoughts that you would be better off or of hurting yourself in some way: not at all Total score: 10 Depression Screening Interpretation: Positive Depression Screening Follow-up: Existing condition Depression Screening Done: Yes 83248 - PHQ-9 Billing: Yes Source: Developed by Drs. Rodo Polk, Bernadette Neville, Elroy Holt and colleagues, with an educational hector from [employer]. Thrive Questionnaire Date Thrive assessed: 01/27/24 I am a: Patient What is your living situation today?: I have a steady place to live Within the past 12 months, did the food you bought not last and you didn't have the money to get more?: Never true Within the past 12 months, did you worry whether your food would run out before you got money to buy more?: Never true Do you have trouble paying for medicines?: No Do you have trouble getting transportation to medical appointments?: No Do you have trouble paying your heating and electricity bill?: No Do you have trouble taking care of your child, family member or friend?: No Do you have trouble with day-to-day activities such as bathing, preparing meals, shopping, managing finances, etc.?: No Are you currently unemployed and looking for a job?: No Are you interested in more education?: No Please select the resources that you would like help with: None Currently or been in a relationship where the following occur: No concerns reported THRIVE Score: 0 AUDIT C Alcohol Use Questionnaire (AUDIT-C) 1. How often do you have a drink containing alcohol?: Monthly or less 2. How many drinks containing alcohol do you have on a typical day when you are drinking?: 1 or 2 3. How often do you have six or more drinks on one occasion?: Never Total Score: 1 CHELI-7 AMB Questionnaire CHELI-7 Date CHELI - 7 assessed: 01/27/24 Feeling nervous, anxious, or on edge: 1 = Several days Not being able to stop or control worryin = Not at all Worrying too much about different things: 0 = Not at all Trouble relaxin = Several days Being so restless that it is hard to sit still: 0 = Not at all Becoming easily annoyed or irritable: 2 = More than half the days Feeling afraid as if something awful might happen: 0 = Not at all Total CHELI-7 score (0-4 normal; 5-9 mild; 10-14 moderate; 15-21 severe): 4 Source: Developed by Drs. Rodo Polk, Bernadette Neville, Elroy Holt and colleagues, with an educational hector from [employer]. CHELI-7 Assessment Billing CHELI-7 Assessment Tool: CHELI-7 Assessment 66600 Physical exam (Primary Care) Vital Signs: Last Vital Signs Pulse 81 01/27/24 15:08 BP 114/66 01/27/24 15:08 Pulse Ox 99 01/27/24 15:08 Oxygen Delivery Method Room Air 01/27/24 15:08 BMI result Body Mass Index 32.4 Tobacco/Smoking Status: Tobacco use Status Tobacco use date assessed 01/27/24 01/27/24 15:14 Patient Tobacco Use Status Former Tobacco user 01/27/24 15:14 Tobacco use type Cigarette 01/27/24 15:14 e-Cigarette/Vaping Use Never Used 01/27/24 15:14 PHQ-9: PHQ-9 Score PHQ-9: Total score 10 01/27/24 21:24 Depression Screening Interpretation: Positive Depression Screening Follow-up: Existing condition Thrive Assessment: Date of Thrive Assessment Date Thrive assessed 01/27/24 01/27/24 15:14 Currently or been in a relationship where the following occur: No concerns reported Coding Level of Care Code Est Pt Level 5 (68053) Complex EM visit Add On G2211 Diagnoses End stage chronic kidney disease N18.6 Type 2 diabetes mellitus with chronic kidney disease on chronic dialysis, without long-term current use of insulin E11.22; N18.6; Z99.2 Chronic kidney disease stage: on chronic dialysis Diabetes mellitus complication detail: with chronic kidney disease Diabetes mellitus complication status: with kidney complications Diabetes mellitus truck terminal manager insulin use: without truck terminal manager use 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 Heart failure chronicity: chronic Heart failure type: combined systolic and diastolic Paroxysmal atrial fibrillation I48.0 Atrial fibrillation type: paroxysmal Tinea of groin B35.6 Additional Codes CHELI-7 Assessment Billing - CHELI-7 Assessment Tool: CHELI-7 Assessment [id number] ([id number]) Time Spent (min) 53 Assessment & Plan Assessment & Plan (1) End stage chronic kidney disease: Code(s): N18.6 - End stage renal disease Category: Medical Plan: continue HD mwf (2) DM type 2 (diabetes mellitus, type 2): Code(s): E11.9 - Type 2 diabetes mellitus without complications Category: Medical Qualifiers: Chronic kidney disease stage: on chronic dialysis Diabetes mellitus complication detail: with chronic kidney disease Diabetes mellitus complication status: with kidney complications Diabetes mellitus truck terminal manager insulin use: without truck terminal manager use Qualified Code(s): E11.22 - Type 2 diabetes mellitus with diabetic chronic kidney disease; N18.6 - End stage renal disease; Z99.2 - Dependence on renal dialysis Plan: A1C is controlled. He can stop glipizide if glucose is within goal or he is experiencing hypoglycemia (3) Congestive heart disease: Code(s): I50.9 - Heart failure, unspecified Category: Medical Qualifiers: Heart failure chronicity: chronic Heart failure type: combined systolic and diastolic Qualified Code(s): I50.42 - Chronic combined systolic (congestive) and diastolic (congestive) heart failure Plan: euvolemic Continue current regimen Follow up PVC (4) Afib: Comment: follows w/PV Cardiology Code(s): I48.91 - Unspecified atrial fibrillation Category: Medical Qualifiers: Atrial fibrillation type: paroxysmal Qualified Code(s): I48.0 - Paroxysmal atrial fibrillation Plan: c/w rate, rhythm control. On AC (5) Tinea of groin: Code(s): B35.6 - Tinea cruris Category: Medical Plan: Fluconazole, cephalexin Combination steroid/antifungal Orders: Orders TSH reflex Free T4 Today E03.9 - Hypothyroidism, unspecified, E11.9 - Type 2 diabetes mellitus without complications Lipid Panel Today E03.9 - Hypothyroidism, unspecified, E11.9 - Type 2 diabetes mellitus without complications Medications: New glipizide ER 2.5 mg PO DAILY 90 tabs 3RF fluconazole 50 mg PO DAILY 10 tabs 0RF clotrimazole-betamethasone 1-0.05 % 1 appl topical BID 45 grams 3RF 2 weeks bupropion HCl XL (Wellbutrin XL) 300 mg PO QAM 90 tabs 3RF cephalexin 250 mg PO QID 28 caps 0RF
[2024-01-27 15:08] VITALS: BP 114/66; PULSE 81; O2SAT 99; BMI 32.4
== END 2024-01-27 15:49 | disposition home or self-care (01) ==
PROVIDERS: PCP Internal Medicine; Visit Provider Internal Medicine
DX: I50.42 Chronic combined systolic (congestive) and diastolic (congestive) heart failure (principal); E11.22 Type 2 diabetes mellitus with diabetic chronic kidney disease; N18.6 End stage renal disease; Z99.2 Dependence on renal dialysis; I48.0 Paroxysmal atrial fibrillation; B35.6 Tinea cruris

== ENCOUNTER → 2024-01-27 15:04 | Outpatient (BNVA) | payer MEDICARE, OTHER, SELFPAY | PROVIDERS: PCP Internal Medicine; Visit Provider Internal Medicine | DX: E11.22 Type 2 diabetes mellitus with diabetic chronic kidney disease (principal); N18.6 End stage renal disease; I50.42 Chronic combined systolic (congestive) and diastolic (congestive) heart failure; B35.6 Tinea cruris; I48.0 Paroxysmal atrial fibrillation; Z79.01 Long term (current) use of anticoagulants; Z99.2 Dependence on renal dialysis | CPT/HCPCS: 96127; 99212 ==

== ENCOUNTER 2024-02-14 11:44 | Inpatient (IN) | payer MEDICARE, OTHER, SELFPAY ==
--- NOTE | ~2024-02-14 | XR_ITS ---
EXAMINATION: XR CHEST CLINICAL INFORMATION: Generalized weakness COMPARISON: Chest radiograph 01/03/2024 TECHNIQUE: 2 views of the chest were obtained. FINDINGS: The lungs are hypoexpanded. Hazy opacity in the left lung base. Central vascular congestion which may be exaggerated by low lung volumes. Minimal blunting of the left costophrenic angle. No right-sided pleural effusion. No pneumothorax. The cardiomediastinal silhouette is unchanged. No acute osseous abnormality. Degenerative changes of thoracic spine. XR/XR chest 2V IMPRESSION: Hazy opacity in the left lung base may represent infectious or inflammatory process. Trace left pleural effusion. Electronically signed by: Rey Badillo MD 02/14/2024 01:04 PM [facility]
--- NOTE | 2024-02-14 11:52 | ED_ITS ---
HPI - General Adult General Chief complaint: Weakness Stated complaint: WEAKNESS Time Seen by Provider: 02/14/24 11:52 Source: patient and EMS Mode of arrival: EMS Limitations: no limitations History of Present Illness ED Provider: Angela Morgan NP HPI narrative: Patient is a 78-year-old male who presents emergency department for evaluation of generalized weakness. Reports that he was discharged from short-term rehab approximately 3 weeks ago to return home with his . He was using a walker and getting about without difficulty. Over the past few weeks he has felt a slow decline in his energy levels. He reports that he feels generally weak again. He has been getting in-home physical therapy 2 days a week. Yesterday he was having difficulty even getting out of bed without significant assistance. Today he felt as though he did not have the strength to even sit up to reach for his walker which prompted his call to the emergency department. He is an ESRD patient receiving dialysis Saturday, unfortunately he did miss his dialysis session today. Denies precipitating injury/fall, fevers, chills, headache, dizziness, lightheadedness, vision changes, neck pain, chest pain, shortness of breath, nausea, vomiting, abdominal pain, numbness or tingling of the extremities, symptoms. Related Data Home Medications ?Medication ?Instructions ?Recorded ?Confirmed apixaban 2.5 mg tablet (Eliquis) 2.5 mg PO BID 11/07/22 02/14/24 glucosamine-chondroitin 250 mg-200 1 tab PO TIDWM 11/07/22 02/14/24 mg tablet (Osteo Bi-Flex) melatonin 5 mg capsule 5 mg PO BEDTIME 11/07/22 02/14/24 atorvastatin 20 mg tablet 20 mg PO BEDTIME 01/03/24 02/14/24 sevelamer HCl 800 mg tablet 1,600 mg PO TID 01/03/24 02/14/24 torsemide 20 mg tablet 40 mg PO SUTUTHSA 01/03/24 02/14/24 midodrine 10 mg tablet 10 mg PO MOWEFR 01/05/24 02/14/24 bupropion HCl 300 mg 24 hr tablet, 300 mg PO DAILY 02/14/24 02/14/24 extended release (Wellbutrin XL) levothyroxine 75 mcg capsule 75 mcg PO DAILY@0600 02/14/24 02/14/24 Previous Rx's ?Medication ?Instructions ?Recorded amiodarone 200 mg tablet 100 mg (1/2 x 200 mg) PO DAILY 90 12/11/23 days #45 tabs clotrimazole-betamethasone 1 1 appl topical BID 2 weeks #45 01/27/24 %-0.05 % topical cream grams glipizide 2.5 mg tablet, extended 2.5 mg PO DAILY #90 tabs 01/27/24 release 24 hr Allergies Allergy/AdvReac Type Severity Reaction Status Date / Time oxycodone AdvReac Gastrointestinal Verified 02/14/24 12:01 Upset Review of Systems 2 Review of Systems: Yes all other systems are reviewed and are negative [facility] Past Medical History Attestation statement: The following information was validated with the patient. 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) ELIF (obstructive sleep apnea) ESRD (end stage renal disease) NSVT (nonsustained ventricular tachycardia) HLD (hyperlipidemia) HTN (hypertension) Afib Congestive heart disease Dialysis complication Kidney failure Low blood pressure DM type 2 (diabetes mellitus, type 2) Gallbladder calculus Surgical History Hx of surgical procedure History of surgery History of umbilical hernia repair History of tonsillectomy and adenoidectomy Family History Family History Maternal Grandmother Pancreatic cancer Mother Diabetes type 2, controlled Social History Social History Household Members: Spouse Housing: House Do you presently have visiting nurse or other home services: No Alcohol intake: former Comment: MS LOC, COVID+ Patient Tobacco Use Status: Former Tobacco user Tobacco use type: Cigarette Smoked in Last 30 Days: No e-Cigarette/Vaping Use: Never Used Use of substances other than those prescribed or required for medical reasons: No Advance Directives: Yes Advance Directives on File: Yes Advance Directives Date on File: 02/14/24 Do you have a plan to hurt others: No Plan Nutrition Risks: No Nutritional Risk service: Yes ([employer]) Current occupational status: retired Cognitive needs: No Hearing needs: No Vision needs: Yes Physical Exam ED Vital Signs: Vital Signs - 24 hr 02/14/24 11:58 02/14/24 12:58 02/14/24 14:11 Temperature 98.9 F Pulse Rate 72 72 72 Respiratory Rate 20 18 Blood Pressure 124/44 L 135/60 135/60 Pulse Oximetry 97 100 100 Oxygen Delivery Method Room Air Room Air 02/14/24 15:00 02/14/24 17:28 Temperature 97.9 F 97.7 F Pulse Rate 94 87 Respiratory Rate 16 17 Blood Pressure 131/63 125/65 Pulse Oximetry 95 96 Oxygen Delivery Method Room Air Room Air BMI result Body Mass Index 32.0 Appearance: Alert.?Oriented to person, place and time. No acute distress.?Normal affect. Eyes: Pupils equal, round and reactive to light.? ENT: Pharynx normal.?? Neck: Normal inspection.? Neck supple.?? CVS: Heart sounds normal. Normal heart rate and rhythm.? Pulses normal.?? Respiratory: No respiratory distress.? Lung sounds clear to auscultation bilaterally?? Abdomen: Soft and non-tender. Normoactive bowel sounds. ?? Skin: Skin warm and dry.? Normal skin color.? Extremities: 2+ bilateral lower extremity edema.? No calf ttp? Neuro: Moves all extremities spontaneously. Sensation intact bilaterally. CN II- XII intact. No focal neuro deficits. Course Reevaluation(s) Reevaluation #1: CXR concerning for pneumonia in the left lower lobe. When asked again patient does state that he experiences typically a chronic cough but has noticed this to have increased over the past couple of weeks, this has contributed with his weakness initiated treatment with Rocephin and azithromycin for his pneumonia. He has no leukocytosis. He is not hypoxic, no respiratory distress at rest. Has significant generalized weakness however, unable to complete an ambulatory O2 trial. No significant electrolyte derangement, CKD with creatinine 9.27. I am anticipating that he may require hospital admission, as it is not clear whether he will be able to obtain placement to a residential facility for rehab (I have been consulting with our casework specialist Cherie, the current facility at which he receives his dialysis treatment is also a residential facility, referrals have been placed see if there is any bed availability, their dialysis schedule would include a Saturday treatment (for tomorrow), I feel it would be appropriate to treat early pneumonia in an outpatient setting. In the event that he does require hospital admission to received dialysis, this is in consideration that he missed today's dialysis session, potentially may miss a dialysis session on Saturday if you were boarding in the emergency department. His outpatient bleach maker is Dr. Marshall, on a recent hospital admission he did receive dialysis under Dr. Amaya's whom I will consult if necessary.. Time: 13:41 Reevaluation #2: admit for dialysis - in AM per dr. vences Time: 16:29 Medications Administered Generic Name Dose Route Start Last Admin Trade Name Freq PRN Reason Stop Dose Admin Midodrine 10 mg 02/14/24 18:30 02/14/24 19:31 Midodrine Hcl 10 Mg Tablet PO 10 mg MOWEFR [place] Administration Discontinued Medications Generic Name Dose Route Start Last Admin Trade Name Freq PRN Reason Stop Dose Admin Ceftriaxone Sodium 1 gm 02/14/24 13:28 02/14/24 14:38 Ceftriaxone Sodium 1 Gm Vial IVPUSH 02/14/24 13:29 1 gm ONCE ONE Administration Azithromycin 500 mg/ Sodium 250 mls @ 125 mls/hr 02/14/24 13:28 02/14/24 17:06 Chloride IV 02/14/24 15:27 Infused ONCE ONE Infusion Medical Decision Making Medical Decision Making [facility] Narrative: Patient is a 78-year-old male with past medical history of ESRD on dialysis Saturday, ELIF, NSVT, hyperlipidemia, hypertension, atrial fibrillation, CHF, type 2 diabetes, presenting to emergency department for evaluation of generalized weakness that resulted in him missing his dialysis session today. Overall he is well-appearing, nontoxic, afebrile. Weakness. is not unilateral or sudden in onset making CVA/TIA less likely. Atraumatic, unlikely to be epidural or subdural hematoma. No associated neck or chest pain to suggest dissection. No associated headache to suggest complicated migraine or SAH. No evidence of ascending paralysis to suggest Guillain-[place] syndrome. No bladder bowel dysfunction to suggest cauda equina/spinal cord lesion. No respiratory distress, no reported shortness breath or chest pain to suggest cardiovascular etiology, ACS Weakness most prominent distally rather than proximal, suspect less likely myopathy or PMR. Will obtain CBC to evaluate for leukocytosis/ anemia, CMP and lipase to evaluate for abnormal electrolytes /abnormal renal function/ abnormal hepatic/biliary function, EKG and troponin to evaluate for ischemia/ACS. Chest x-ray to evaluate for consolidation/ infiltrate/ mass/ pulmonary congestion, viral serologies and Urinalysis. Differential Diagnosis Differential Diagnoses: The differential diagnosis associated with the presentation includes (See narrative above) Admission/Observation Consideration of admission/observation: Escalation of care including admission/observation considered (See narrative above and course narrative for further detail) Lab Data MDM Lab Attestation statement: I reviewed the patient's lab results. 02/14/24 12:53 02/14/24 12:53 Labs: Lab Results 02/14/24 02/14/24 02/14/24 Range/Units 12:53 14:26 17:27 WBC 7.1 (4.8-10.8) X10*3/uL RBC 3.08 L D (4.60-5.80) X10*6/uL Hgb 10.7 L D (14.0-18.0) g/dl Hct 34.7 L D (42.0-52.0) % MCV 112.7 H (80.0-98.0) fL MCH 34.7 H (27.0-33.0) pg MCHC 30.8 L (31.0-36.0) g/dl RDW 15.6 (11.0-16.0) % Plt Count 114 L (160-400) X10*3/uL MPV 9.2 L (9.4-12.4) fL Immature Gran % (Auto) 0.4 (0.0-0.4) % Neut % (Auto) 78.2 H (45-73) % Lymph % (Auto) 11.5 L (20-40) % [place] % (Auto) 7.6 (2-11) % Eos % (Auto) 1.7 (0-4) % Baso % (Auto) 0.6 (0-2) % Lymph # (Auto) 0.8 L (1.2-4.9) X10*3/uL [place] # (Auto) 0.5 (0.1-1.2) X10*3/uL Eos # (Auto) 0.1 (0.0-0.4) X10*3/uL Baso # (Auto) 0.0 (0.0-0.2) X10*3/uL Abs Immat Gran (auto) 0.03 (0.00-0.03) X10*3/uL Absolute Neuts (auto) 5.5 (2.0-8.3) x10*3/uL Absolute Nucleated RBC 0.000 (0.0-0.012) X10*3/uL Nucleated RBC % (auto) 0.0 (0.0-0.2) /100WBC PT 14.6 H (10.9-12.4) SEC INR 1.3 H (0.9-1.1) Sodium 144 (135-145) mmol/L Potassium 4.5 (3.3-5.1) mmol/L Chloride 105 (96-108) mmol/L Carbon Dioxide 26 (22-29) mmol/L Anion Gap 18 (12-20) BUN 64 H (9-16) mg/dL Creatinine 9.27 H* (0.5-1.4) mg/dL Estim Creat Clear Calc 8.2 Estimated GFR 6 Random Glucose 110 (60-115) mg/dL Lactic Acid 1.4 (0.5-2.0) mmol/L Calcium 10.1 D (8.4-10.2) mg/dL Magnesium 3.1 H (1.6-2.6) mg/dL Total Bilirubin 0.7 (0.0-1.0) mg/dL AST 18 (5-37) U/L ALT 13 (0-40) U/L Alkaline Phosphatase 123 H (39-117) U/L Total Protein 6.7 (6.5-8.0) g/dL Albumin 3.9 (3.5-5.0) g/dL Urine Color Yellow Urine Appearance Turbid Urine pH 7.5 (5.0-9.0) Ur Specific [place] 1.010 (1.005-1.025) Urine Protein 100 (2+) H (Neg-Trace) mg/dL Urine Glucose (UA) 100 H (Negative) mg/dL Urine Ketones Negative (Negative) mg/dL Urine Blood Moderate (2+) H (Negative) Urine Nitrite Negative (Negative) Ur Leukocyte Esterase Large (3+) H (Negative) Urine RBC 6-10 H (0-2) /HPF Urine WBC >50 H (0-5) /HPF Ur Squamous Epith Cells 0-2 (0-2) /HPF Urine Bacteria 3+ (None Seen) Hyaline Casts 3-5 (0-2) /LPF Influenza Type A (PCR) NEGATIVE (Negative) Influenza Type B (PCR) NEGATIVE (Negative) RSV RNA Qual (PCR) NEGATIVE (Negative) SARS-CoV-2 RNA (RT-PCR) NEGATIVE (Negative) Independent Interpretation I performed an independent interpretation of an: EKG Interpretation: Rate: 72 Rhythm:? Normal sinus rhythm Normal P waves.? Normal DEEPTHI.?? Normal QRS complex.?? ST T wave :??No ST elevation, no ST depression qTC: 448 prior studies:? December 2023 The study has been interpreted contemporaneously by me. Radiology Impression Discussion of test interpretation with radiology: I have reviewed the radiologist's reading. Radiologist Impression: XR/XR chest 2V IMPRESSION: Hazy opacity in the left lung base may represent infectious or inflammatory process. Trace left pleural effusion. Independent Historian Clinical information obtained from an independent historian. History obtained from or confirmed by: EMS External Record Review External record reviewed: Outpatient record Tests considered The following testing was considered but not selected: See narrative above Discharge Plan Discharge Clinical Impression: End-stage renal disease Patient Disposition: Admitted As Inpatient Interventions: Admission Worksheet (ED) Last Done: 02/14/24 19:35 Discharge Date/Time: 02/14/24 20:18
[2024-02-14 11:58] VITALS: BP 124/44; BP 160/80; PULSE 72; PULSE 74; RESP 20; TEMP 37.2; O2SAT 100; O2SAT 97; BMI 32.0
--- NOTE | 2024-02-14 12:05 | ECG_ITS ---
Test Reason : weakness Blood Pressure : / mmHG Vent. Rate : 072 BPM Atrial Rate : 072 BPM P-R Int : 196 ms QRS Dur : 106 ms QT Int : 410 ms P-R-T Axes : 061 -02 046 degrees QTc Int : 448 ms Normal sinus rhythm Possible Inferior infarct , age undetermined Anteroseptal infarct (cited on or before 03-JAN-2024) Abnormal ECG When compared with ECG of 03-JAN-2024 18:17, Questionable change in initial forces of Anteroseptal leads Nonspecific T wave abnormality no longer evident in Lateral leads QT has shortened Referred By: Angela Morgan Electronically Signed By:JOSE KIDD MD
--- NOTE | 2024-02-14 12:22 | MHC.CM.ED ---
Received notification from Angela ESPINOSA that patient was recently d/c'd from rehab. Came to ER due to weakness. Patient was at [facility] 01/08-01/21. Patient receives dialysis at [facility] on Sat, and Saturday. [facility]. Continue to monitor for d/c needs.
[2024-02-14 12:58] VITALS: BP 135/60; PULSE 72; RESP 18; O2SAT 100
[2024-02-14 13:01] LABS: MANUAL DIFF FLAG NO
[2024-02-14 13:02] LABS: Basophils Percent Auto 0.6 % (0-2); Eosinophils Absolute Auto 0.1 X10*3/uL (0.0-0.4); Eosinophils Percent Auto 1.7 % (0-4); Hematocrit 34.7 % (42.0-52.0); Hemoglobin 10.7 g/dl (14.0-18.0); Imm Gran Abs Auto 0.03 X10*3/uL (0.00-0.03); Imm Gran Pct Auto 0.4 % (0.0-0.4); Lymphocytes Absolute Auto 0.8 X10*3/uL (1.2-4.9); Lymphocytes Percent Auto 11.5 % (20-40); Mean Corpuscular HGB Conc 30.8 g/dl (31.0-36.0); Mean Corpuscular Hemoglobin 34.7 pg (27.0-33.0); Mean Corpuscular Volume 112.7 fL (80.0-98.0); Mean Platelet Volume 9.2 fL (9.4-12.4); Monocytes Absolute Auto 0.5 X10*3/uL (0.1-1.2); Monocytes Percent Auto 7.6 % (2-11); Neutrophils Absolute Auto 5.5 x10*3/uL (2.0-8.3); Neutrophils Percent Auto 78.2 % (45-73); Platelet Count 114 X10*3/uL (160-400); Red Blood Count 3.08 X10*6/uL (4.60-5.80); Red Cell Distribution Width 15.6 % (11.0-16.0); White Blood Count 7.1 X10*3/uL (4.8-10.8)
[2024-02-14 13:07] LABS: INTERNATIONAL NORM RATIO 1.3 (0.9-1.1); Prothrombin Time 14.6 SEC (10.9-12.4)
[2024-02-14 13:24] LABS: Alanine Aminotransferase 13 U/L (0-40); Albumin Level 3.9 g/dL (3.5-5.0); Alkaline Phosphatase 123 U/L (39-117); Anion Gap 18 (12-20); Aspartate Amino Transferase 18 U/L (5-37); Bilirubin Total 0.7 mg/dL (0.0-1.0); Blood Urea Nitrogen 64 mg/dL (9-16); Calcium 10.1 mg/dL (8.4-10.2); Carbon Dioxide 26 mmol/L (22-29); Chloride 105 mmol/L (96-108); Creatinine Clr Calc Pharmacy 8.2; Estimated Glomerular Filt Rate 6; Glucose Random 110 mg/dL (60-115); Magnesium 3.1 mg/dL (1.6-2.6); Potassium 4.5 mmol/L (3.3-5.1); Sodium 144 mmol/L (135-145); Total Protein 6.7 g/dL (6.5-8.0)
[2024-02-14 13:40] LABS: Influenza A PCR NEGATIVE (Negative); Influenza B PCR NEGATIVE (Negative); Resp Syncy Virus RNA Qual PCR NEGATIVE (Negative); SARS COV2 PCR INHOUSE NEGATIVE (Negative)
--- NOTE | 2024-02-14 14:09 | PC.NURSE ---
ABX delayed d/t difficult stick, no BC/lactic drawn yet.
[2024-02-14 14:11] VITALS: BP 135/60; PULSE 72; O2SAT 100
[2024-02-14] MEDS: cefTRIAXone sodium 1 GM VIAL IVPUSH (14:38)
[2024-02-14] MEDS: Azithromycin 500 MG in 0.9 % Sodium Chloride 250 ML 125 MG IV (14:38)
[2024-02-14 14:55] LABS: Lactic Acid 1.4 mmol/L (0.5-2.0)
[2024-02-14 15:00] VITALS: BP 131/63; PULSE 94; RESP 16; TEMP 36.6; O2SAT 95
--- NOTE | 2024-02-14 16:49 | PM.IMHP ---
History of Present Illness Date of Service: 02/14/24 Chief Complaint: weakness and missed dialysis 78-year-old male with a PMH significant for?paroxysmal AFib on Eliquis, HLD, tjm-ffejwzd-jcagjiyzq type 2 diabetes, ESRD on HD M/W/F, orthostatic hypotension, hypothyroidism. He presents to the ED feeling and missed dialysis. He was dc from the hospital nearly 4 weeks ago and went to rehab and was discharged home 3 weeks ago and has been declining and feeling weak and could not go to dialysis today. He has no sob, chest of gi complaint. No fever, wbc. A routine CXR some hazziness and is given antibiotics for pneumonia. Attempt to discharge to SNF form the ED was unsucesfull. 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) ELIF (obstructive sleep apnea) ESRD (end stage renal disease) NSVT (nonsustained ventricular tachycardia) HLD (hyperlipidemia) HTN (hypertension) Afib Congestive heart disease Dialysis complication Kidney failure Low blood pressure DM type 2 (diabetes mellitus, type 2) Gallbladder calculus Family History Maternal Grandmother Pancreatic cancer Mother Diabetes type 2, controlled Surgical History Hx of surgical procedure History of surgery History of umbilical hernia repair History of tonsillectomy and adenoidectomy Social History Household Members: Spouse Housing: House Do you presently have visiting nurse or other home services: No Alcohol intake: former Comment: MS ABREUANA LAURAID+ Patient Tobacco Use Status: Former Tobacco user Tobacco use type: Cigarette Smoked in Last 30 Days: No e-Cigarette/Vaping Use: Never Used Second Hand Smoke Exposure: No Use of substances other than those prescribed or required for medical reasons: No Currently Displaying Signs/Symptoms of Drug Intoxication Withdrawal: No Have you been hit, kicked, punched, or otherwise hurt by someone within the past year? If so, by whom?: No Do you feel safe in your current relationship?: Yes Is there a partner from a previous relationship who is making you feel unsafe now?: No Are you made to feel afraid or neglected: No Advance Directives: Yes Advance Directives on File: Yes Advance Directives Date on File: 02/14/24 Do you have a plan to hurt others: No Plan Recently lost weight without trying: No Nutrition Risks: No Nutritional Risk service: Yes ([employer]) Current occupational status: retired Cognitive needs: No Hearing needs: No Vision needs: Yes Meds Allergies Allergy/AdvReac Type Severity Reaction Status Date / Time oxycodone AdvReac Gastrointestinal Verified 02/14/24 12:01 Upset Home Medications ?Medication ?Instructions ?Recorded ?Confirmed ?Last Taken ?Type apixaban 2.5 mg tablet (Eliquis) 2.5 mg PO BID 11/07/22 02/14/24 02/14/24 08:00 History glucosamine-chondroitin 250 mg-200 1 tab PO TIDWM 11/07/22 02/14/24 02/14/24 08:00 History mg tablet (Osteo Bi-Flex) melatonin 5 mg capsule 5 mg PO BEDTIME 11/07/22 02/14/24 02/13/24 History atorvastatin 20 mg tablet 20 mg PO BEDTIME 01/03/24 02/14/24 02/14/24 08:00 History sevelamer HCl 800 mg tablet 1,600 mg PO TID 01/03/24 02/14/24 02/14/24 08:00 History torsemide 20 mg tablet 40 mg PO SUTUTHSA 01/03/24 02/14/24 02/11/24 History midodrine 10 mg tablet 10 mg PO MOWEFR 01/05/24 02/14/24 02/12/24 History bupropion HCl 300 mg 24 hr tablet, 300 mg PO DAILY 02/14/24 02/14/24 02/14/24 08:00 History extended release (Wellbutrin XL) levothyroxine 75 mcg capsule 75 mcg PO DAILY@0600 02/14/24 02/14/24 02/14/24 08:00 History Physical Exam Vital Signs and Narrative: Vital Signs: Last Vital Signs Temp 97.9 F 02/14/24 15:00 Pulse 94 02/14/24 15:00 Resp 16 02/14/24 15:00 BP 131/63 02/14/24 15:00 Pulse Ox 95 02/14/24 15:00 O2 Del Method Room Air 02/14/24 15:00 BMI result Body Mass Index 32.0 Const: Other: General: AOx3, no acute distress Resp: CTA bilaterally CVS: S1, S2, RRR GI: +BS, NT, no distention Skin: Warm, dry, damion stasis dermatitis of both legs Neuro: Cranial nerves II-XII grossly intact bilaterally. Motor grossly intact bilaterally, though with global weakness noted Extremities: No edema Psych: Appropriate affect Results Labs 02/14/24 12:53 02/14/24 12:53 Labs: Laboratory Results - last 24 hr 02/14/24 02/14/24 12:53 14:26 MCV 112.7 H MCH 34.7 H MCHC 30.8 L RDW 15.6 Plt Count 114 L MPV 9.2 L Immature Gran % (Auto) 0.4 Neut % (Auto) 78.2 H Lymph % (Auto) 11.5 L [place] % (Auto) 7.6 Eos % (Auto) 1.7 Baso % (Auto) 0.6 Lymph # (Auto) 0.8 L [place] # (Auto) 0.5 Eos # (Auto) 0.1 Baso # (Auto) 0.0 Abs Immat Gran (auto) 0.03 Absolute Neuts (auto) 5.5 Absolute Nucleated RBC 0.000 Nucleated RBC % (auto) 0.0 PT 14.6 H INR 1.3 H Anion Gap 18 Estim Creat Clear Calc 8.2 Estimated GFR 6 Random Glucose 110 Lactic Acid 1.4 Calcium 10.1 D Magnesium 3.1 H Total Bilirubin 0.7 AST 18 ALT 13 Alkaline Phosphatase 123 H Total Protein 6.7 Albumin 3.9 Influenza Type A (PCR) NEGATIVE Influenza Type B (PCR) NEGATIVE RSV RNA Qual (PCR) NEGATIVE SARS-CoV-2 RNA (RT-PCR) NEGATIVE Imaging Radiologist's Impressions: Impressions Chest X-Ray 02/14/24 12:06 IMPRESSION: Hazy opacity in the left lung base may represent infectious or inflammatory process. Trace left pleural effusion. Electronically signed by: Rey Badillo MD 02/14/2024 01:04 PM EST Assessment and Plan (1) Weakness: Status: Acute Plan 78/m with r?paroxysmal AFib (PAF) on Eliquis, HLD, wmd-kugrikr-xzywqymcc type 2 diabetes, ESRD on HD M/W/F, orthostatic hypotension, hypothyroidism, and mood disorder here with weakness and having missed dialysis, ? PNA on CXR but has no clinical findings of PNA Generalized Weakness likely from uti treat underlying uti PT eval for possible rehab again UTI Ceftriaxone ESRD On HD M/W/F Missed dialysis today, dialysis tomorrow Nephrology consult Diabetes sliding scale insulin hold glipizide diabetic diet ?PNA, CXR finding are subtle and has clinical finding of PNA got Ceftriaxone and Azithro PAF Continue amiodarone, Eliquis HypoT Continue levothyroxine Mood disorder Continue bupropion Full Code DVT Prophylaxis: On Eliquis PT eval for weakness admission for weakness and need for dialysis, uti Quality Stroke Does the patient have a stroke diagnosis?: No VTE Prior VTE?: No VTE Risk Level:: Medical - moderate - high VTE Device Contraindication: Treatment Not Indicated VTE Drug Contraindication: N/A - Med Ordered
--- NOTE | 2024-02-14 16:56 | MHC.CM.ED ---
Addendum entered by Danitza Le 02/14/24 19:05: CM met with patient and his . He lives with his . Uses a walker. Has a lift assist chair, stair glide and transport chair. Has been sleeping in his recliner with his increasing weakness. Has dialysis at [facility] M-W-. Currently has [facility] for SN and twice weekly PT. PCP is Na White. HCP is his , Melinda Ruth ([phone]). Patient is aware that [facility] is assessing if patient can have dialysis at the faciilty. Pt being admitted for dialysis secondary to inability to confirm if patient can have dialysis at facility. is asking if patient can return to [facility] (01/08-01/21) and have dialysis there. PT has recommended STR. CM suggested that CM can re-assess STR/dialysis at [place] in the morning first. No additional referrals placed at this time. CM will reach out to facility in the morning regarding STR bed and dialysis at facility. Original Note: Pt will be admitted to medical floor. Will notify [facility] via [facility]. Will request they follow for discharge. Pt has dialysis M-W- at [facility].
[2024-02-14 17:28] VITALS: BP 125/65; PULSE 87; RESP 17; TEMP 36.5; O2SAT 96
[2024-02-14 17:42] LABS: Appearance Urine Turbid; Color Urine Yellow; Glucose Urine UA 100 mg/dL (Negative); Leukocyte Esterase Urine Large (3+) (Negative); Nitrite Urine Negative (Negative); PH 7.5 (5.0-9.0); UMIC TRIGGER UACC YES; Urine Blood Moderate (2+) (Negative); Urine Ketones Negative (Negative); Urine Protein 100 (2+) mg/dL (Neg-Trace)
[2024-02-14 17:47] LABS: Bacteria Urine 3+ (None Seen); Squamous Epithelial Cell Urine 0-2 /HPF (0-2); UACC Culture Trigger YES; WBC Urine >50 /HPF (0-5)
--- NOTE | 2024-02-14 18:18 | PHA.MEDREC ---
Addendum entered by Marvin Castro RPh 02/14/24 18:42: Med rec checked by [facility] Original Note: Pharmacy Consult ? Medication Reconciliation Pharmacy has completed the medication reconciliation. Spoke to patient and at bedside to confirm med list. had a list and was able to name off patients medications. confirmed Midodrine 10 mg is every Saturday, Saturday, and Saturday, last dose was 02/12/24 and Torsemide 40 mg is Saturday, Saturday, Saturday, and , last dose was 02/11/24.
[2024-02-14] MEDS: Midodrine HCl 10 MG TABLET PO (19:31)
[2024-02-14 20:00] VITALS: BP 131/74; PULSE 91; RESP 16; TEMP 36.6; O2SAT 97
[2024-02-14 20:32] LABS: Glucose, Whole Blood 70 mg/dL (60-115)
[2024-02-14] MEDS: Sevelamer Carbonate Tablet 800 MG TABLET 1600 MG PO (20:37)
[2024-02-14] MEDS: Atorvastatin Calcium 20 MG TABLET PO (20:37)
[2024-02-14] MEDS: Apixaban 2.5 MG TABLET PO (20:37)
[2024-02-14] MEDS: 0.9 % Sodium Chloride Flush 3 ML SYRINGE IVFLUSH (20:38)
[2024-02-14 20:40] VITALS: BMI 31.0
[2024-02-14] MEDS: Flu Vacc TS2024-25(6mos up)/PF 0.5 ML SYRINGE IM (21:55)
[2024-02-15 03:17] VITALS: BP 143/70; PULSE 68; RESP 16; TEMP 36.5; O2SAT 98
[2024-02-15] MEDS: Levothyroxine Sodium 75 MCG TABLET PO (05:41)
--- NOTE | 2024-02-15 07:15 | HO.PM.IMPN ---
Subjective Subjective Date of Service: 02/15/24 Interval History: f/u weakness, uti and missed dialysis being dialysed this morning Physical Exam Vital Signs: Vital Signs: Last Vital Signs Temp 97.7 F 02/15/24 03:17 Pulse 68 02/15/24 03:17 Resp 16 02/15/24 03:17 BP 143/70 H 02/15/24 03:17 Pulse Ox 98 02/15/24 03:17 O2 Del Method Room Air 02/15/24 03:17 BMI result Body Mass Index 31.0 Const: Other: General: AO X 3, no acute distress Resp: CTA bilateral CVS: S1,S2,RRR GI: +BS, NT, no distention Skin: No rash Neuro: motor grossly intact Psych: appropriate affect Objective Data Active Medications Acetaminophen (Acetaminophen 325 Mg Tablet) 650 mg PO Q6H PRN PRN Reason: Pain, Mild (Pain Scale 1-3), fever or headache Amiodarone HCl (Amiodarone Hcl 200 Mg Tablet) 100 mg PO DAILY [facility] Apixaban (Apixaban 2.5 Mg Tablet) 2.5 mg PO BID [facility] Last Admin: 02/14/24 20:37 Dose: 2.5 mg Documented By: LIGIA Atorvastatin Calcium (Atorvastatin Calcium 20 Mg Tablet) 20 mg PO BEDTIME [facility] Last Admin: 02/14/24 20:37 Dose: 20 mg Documented By: LIGIA Bupropion HCl (Bupropion Hcl Xl 300 Mg Tab.Er.24h) 300 mg PO DAILY [facility] Calcium Carbonate (Calcium Carbonate 750 Mg Tab.Chew) 750 mg PO Q4H PRN PRN Reason: Heartburn Ceftriaxone Sodium (Ceftriaxone Sodium 1 Gm Vial) 1 gm IVPUSH Q24H [facility] Glucose (Glucose Gel 15 Gm Gel..Gram.) 15 gm PO Q15M PRN; Protocol PRN Reason: per Hypoglycemia Standing Ord. Dextrose (D10) 250 mls @ 750 mls/hr IV Q15M PRN; Protocol PRN Reason: per Hypoglycemia Standing Ord. Insulin Human Lispro (Insulin Lispro 100 Unit/Ml 3 Ml Vial) 0 unit SUBCUT QIDACHS [facility]; Protocol Last Admin: 02/14/24 20:50 Dose: Not Given Documented By: LIGIA Non-Admin Reason: No Insulin Coverage Levothyroxine Sodium (Levothyroxine Sodium 75 Mcg Tablet) 75 mcg PO DAILY@0600 [facility] Last Admin: 02/15/24 05:41 Dose: 75 mcg Documented By: LIGIA Magnesium Hydroxide (Milk Of Magnesia 30 Ml Oral.Susp) 30 ml PO DAILY PRN PRN Reason: Constipation Melatonin (Melatonin 3 Mg Tablet) 6 mg PO BEDTIME PRN PRN Reason: Insomnia Midodrine (Midodrine Hcl 10 Mg Tablet) 10 mg PO MOWEFR [facility] Last Admin: 02/14/24 19:31 Dose: 10 mg Documented By: DITOLC Ondansetron HCl (Ondansetron Hcl 4 Mg/2 Ml Vial) 4 mg IVPUSH Q8H PRN PRN Reason: Nausea and Vomiting Sevelamer Carbonate (Sevelamer Carbonate Tablet 800 Mg Tablet) 1,600 mg PO TID [facility] Last Admin: 02/14/24 20:37 Dose: 1,600 mg Documented By: LIGIA Sodium Chloride (0.9 % Sodium Chloride Flush 3 Ml Syringe) 3 ml IVFLUSH QSHIFT [facility] Last Admin: 02/14/24 20:38 Dose: 3 ml Documented By: LIGIA Torsemide (Torsemide 20 Mg Tablet) 40 mg PO [facility]; Protocol Labs 02/14/24 12:53 02/15/24 08:44 Labs: Laboratory Results - last 24 hr 02/14/24 02/14/24 02/14/24 12:53 14:26 17:27 MCV 112.7 H MCH 34.7 H MCHC 30.8 L RDW 15.6 Plt Count 114 L MPV 9.2 L Immature Gran % (Auto) 0.4 Neut % (Auto) 78.2 H Lymph % (Auto) 11.5 L [place] % (Auto) 7.6 Eos % (Auto) 1.7 Baso % (Auto) 0.6 Lymph # (Auto) 0.8 L [place] # (Auto) 0.5 Eos # (Auto) 0.1 Baso # (Auto) 0.0 Abs Immat Gran (auto) 0.03 Absolute Neuts (auto) 5.5 Absolute Nucleated RBC 0.000 Nucleated RBC % (auto) 0.0 PT 14.6 H INR 1.3 H Anion Gap 18 Estim Creat Clear Calc 8.2 Estimated GFR 6 POC Glucose Random Glucose 110 Lactic Acid 1.4 Calcium 10.1 D Magnesium 3.1 H Total Bilirubin 0.7 AST 18 ALT 13 Alkaline Phosphatase 123 H Total Protein 6.7 Albumin 3.9 Urine Color Yellow Urine Appearance Turbid Urine pH 7.5 Ur Specific [place] 1.010 Urine Protein 100 (2+) H Urine Glucose (UA) 100 H Urine Ketones Negative Urine Blood Moderate (2+) H Urine Nitrite Negative Ur Leukocyte Esterase Large (3+) H Urine RBC 6-10 H Urine WBC >50 H Ur Squamous Epith Cells 0-2 Urine Bacteria 3+ Hyaline Casts 3-5 Influenza Type A (PCR) NEGATIVE Influenza Type B (PCR) NEGATIVE RSV RNA Qual (PCR) NEGATIVE SARS-CoV-2 RNA (RT-PCR) NEGATIVE 02/14/24 20:25 MCV MCH MCHC RDW Plt Count MPV Immature Gran % (Auto) Neut % (Auto) Lymph % (Auto) Cache % (Auto) Eos % (Auto) Baso % (Auto) Lymph # (Auto) Cache # (Auto) Eos # (Auto) Baso # (Auto) Abs Immat Gran (auto) Absolute Neuts (auto) Absolute Nucleated RBC Nucleated RBC % (auto) PT INR Anion Gap Estim Creat Clear Calc Estimated GFR POC Glucose 70 Random Glucose Lactic Acid Calcium Magnesium Total Bilirubin AST ALT Alkaline Phosphatase Total Protein Albumin Urine Color Urine Appearance Urine pH Ur Specific [place] Urine Protein Urine Glucose (UA) Urine Ketones Urine Blood Urine Nitrite Ur Leukocyte Esterase Urine RBC Urine WBC Ur Squamous Epith Cells Urine Bacteria Hyaline Casts Influenza Type A (PCR) Influenza Type B (PCR) RSV RNA Qual (PCR) SARS-CoV-2 RNA (RT-PCR) Assessment and Plan (1) ESRD (end stage renal disease): Status: Acute (2) DM type 2 (diabetes mellitus, type 2): Status: Acute (3) Afib: Status: Acute Plan 78/m with r?paroxysmal AFib (PAF) on Eliquis, HLD, [id number] type 2 diabetes, ESRD on HD M/W/F, orthostatic hypotension, hypothyroidism, and mood disorder here with weakness and having missed dialysis, ? PNA on CXR but has no clinical findings of PNA Generalized Weakness likely from uti treat underlying uti PT eval for possible rehab UTI Ceftriaxone follow culture ESRD On HD M/W/F Missed dialysis yesterday so dialysis today Nephrology consult Diabetes sliding scale insulin hold glipizide diabetic diet ?PNA, CXR finding are subtle and has clinical finding of PNA got Ceftriaxone and Azithro PAF Continue amiodarone, Eliquis HypoT Continue levothyroxine Mood disorder Continue bupropion Full Code DVT Prophylaxis: On Eliquis PT eval for weakness admission for weakness and need for dialysis, uti Quality Stroke Does the patient have a stroke diagnosis?: No VTE Prior VTE?: No VTE Risk Level:: Medical - moderate - high VTE Device Contraindication: Treatment Not Indicated VTE Drug Contraindication: N/A - Med Ordered
[2024-02-15 09:23] LABS: Anion Gap 17 (12-20); Blood Urea Nitrogen 28 mg/dL (9-16); Calcium 8.7 mg/dL (8.4-10.2); Carbon Dioxide 23 mmol/L (22-29); Chloride 103 mmol/L (96-108); Creatinine Clr Calc Pharmacy 16.2; Estimated Glomerular Filt Rate 12; Glucose Random 90 mg/dL (60-115); Potassium 3.2 mmol/L (3.3-5.1); Sodium 140 mmol/L (135-145)
[2024-02-15] MEDS: Sevelamer Carbonate Tablet 800 MG TABLET 1600 MG PO ×3 (10:21→20:05)
[2024-02-15] MEDS: buPROPion HCl XL 300 MG TAB.ER.24H PO (10:21)
[2024-02-15] MEDS: Apixaban 2.5 MG TABLET PO ×2 (10:21→20:05)
[2024-02-15] MEDS: Amiodarone HCL 200 MG TABLET 100 MG PO (10:21)
[2024-02-15] MEDS: Azithromycin 250 MG TABLET PO (10:21)
[2024-02-15] MEDS: 0.9 % Sodium Chloride Flush 3 ML SYRINGE IVFLUSH ×3 (10:23→20:05)
[2024-02-15 10:31] LABS: Glucose, Whole Blood 88 mg/dL (60-115)
[2024-02-15 12:19] LABS: Glucose, Whole Blood 125 mg/dL (60-115)
[2024-02-15 14:57] VITALS: BP 146/67; PULSE 67; RESP 16; TEMP 36.7; O2SAT 96
[2024-02-15] MEDS: cefTRIAXone sodium 1 GM VIAL IVPUSH (15:47)
--- NOTE | 2024-02-15 16:15 | MHC.CM.PN ---
PT REPORTS HE LIVES WITH HIS AND IS INDEPENDENT WITH CARE HE HAS HOME PT SERVICES, BUT DOES NOT KNOW THE AGENCY PT ATTENDS HD IN [place] HE USES A WALKER TO AMBULATE HCP ON FILE PCP: KAUSHIK LOZA IMM DELIVERED DCP: HOME RESUME SERVICES TO TRANSPORT
[2024-02-15 16:20] LABS: Glucose, Whole Blood 103 mg/dL (60-115)
[2024-02-15] MEDS: Torsemide 20 MG TABLET 40 MG PO (17:45)
[2024-02-15 19:18] VITALS: BP 132/64; PULSE 70; RESP 16; TEMP 36.4; O2SAT 95
[2024-02-15] MEDS: Atorvastatin Calcium 20 MG TABLET PO (20:05)
[2024-02-15 20:20] LABS: Glucose, Whole Blood 153 mg/dL (60-115)
[2024-02-15] MEDS: Insulin Lispro 100 UNIT/ML 3 ML VIAL SUBCUT (20:23)
[2024-02-16 03:15] VITALS: BP 130/60; PULSE 65; RESP 16; TEMP 36.3; O2SAT 98
[2024-02-16] MEDS: Levothyroxine Sodium 75 MCG TABLET PO (05:22)
[2024-02-16 07:31] LABS: Glucose, Whole Blood 82 mg/dL (60-115)
[2024-02-16] MEDS: Azithromycin 250 MG TABLET PO (07:49)
[2024-02-16] MEDS: 0.9 % Sodium Chloride Flush 3 ML SYRINGE IVFLUSH ×3 (07:52→19:16)
[2024-02-16 08:00] VITALS: BP 145/69; PULSE 72; RESP 18; TEMP 36.4; O2SAT 97
[2024-02-16] MEDS: Sevelamer Carbonate Tablet 800 MG TABLET 1600 MG PO ×3 (08:02→19:16)
[2024-02-16] MEDS: Apixaban 2.5 MG TABLET PO ×2 (08:02→19:15)
[2024-02-16] MEDS: buPROPion HCl XL 300 MG TAB.ER.24H PO (08:02)
[2024-02-16] MEDS: Amiodarone HCL 200 MG TABLET 100 MG PO (08:03)
--- NOTE | 2024-02-16 09:19 | P.PNIM_ITS ---
Subjective Subjective Date of Service: 02/16/24 Interval History: f/u weakness, uti and missed dialysis feeling better Physical Exam 2 Vital Signs: Vital Signs: Last Vital Signs Temp 97.6 F 02/16/24 08:00 Pulse 72 02/16/24 08:00 Resp 18 02/16/24 08:00 BP 145/69 H 02/16/24 08:00 Pulse Ox 97 02/16/24 08:00 O2 Del Method Room Air 02/16/24 08:00 BMI result Body Mass Index 31.0 Const: Other: General: AO X 3, no acute distress Resp: CTA bilateral CVS: S1,S2,RRR GI: +BS, NT, no distention Skin: No rash, bilateral chronic stais dermatitis Neuro: motor grossly intact Psych: appropriate affect Objective Data Active Medications Acetaminophen (Acetaminophen 325 Mg Tablet) 650 mg PO Q6H PRN PRN Reason: Pain, Mild (Pain Scale 1-3), fever or headache Amiodarone HCl (Amiodarone Hcl 200 Mg Tablet) 100 mg PO DAILY [facility] Last Admin: 02/16/24 08:03 Dose: 100 mg Documented By: EDNA Apixaban (Apixaban 2.5 Mg Tablet) 2.5 mg PO BID [facility] Last Admin: 02/16/24 08:02 Dose: 2.5 mg Documented By: EDNA Atorvastatin Calcium (Atorvastatin Calcium 20 Mg Tablet) 20 mg PO BEDTIME [facility] Last Admin: 02/15/24 20:05 Dose: 20 mg Documented By: LIGIA Azithromycin (Azithromycin 250 Mg Tablet) 250 mg PO Q24H [facility] Stop: 02/18/24 07:31 Last Admin: 02/16/24 07:49 Dose: 250 mg Documented By: EDNA Bupropion HCl (Bupropion Hcl Xl 300 Mg Tab.Er.24h) 300 mg PO DAILY [facility] Last Admin: 02/16/24 08:02 Dose: 300 mg Documented By: EDNA Calcium Carbonate (Calcium Carbonate 750 Mg Tab.Chew) 750 mg PO Q4H PRN PRN Reason: Heartburn Ceftriaxone Sodium (Ceftriaxone Sodium 1 Gm Vial) 1 gm IVPUSH Q24H [facility] Last Admin: 02/15/24 15:47 Dose: 1 gm Documented By: EDNA Glucose (Glucose Gel 15 Gm Gel..Gram.) 15 gm PO Q15M PRN; Protocol PRN Reason: per Hypoglycemia Standing Ord. Dextrose (D10) 250 mls @ 750 mls/hr IV Q15M PRN; Protocol PRN Reason: per Hypoglycemia Standing Ord. Insulin Human Lispro (Insulin Lispro 100 Unit/Ml 3 Ml Vial) 0 unit SUBCUT QIDACHS [facility]; Protocol Last Admin: 02/16/24 07:37 Dose: Not Given Documented By: EDNA Non-Admin Reason: No Insulin Coverage Levothyroxine Sodium (Levothyroxine Sodium 75 Mcg Tablet) 75 mcg PO DAILY@0600 [facility] Last Admin: 02/16/24 05:22 Dose: 75 mcg Documented By: LIGIA Lidocaine HCl (Lidocaine Hcl 1 % Mpf 2 Ml Vial) 0.5 ml SUBCUT MOWE@1645 [facility] Magnesium Hydroxide (Milk Of Magnesia 30 Ml Oral.Susp) 30 ml PO DAILY PRN PRN Reason: Constipation Melatonin (Melatonin 3 Mg Tablet) 6 mg PO BEDTIME PRN PRN Reason: Insomnia Midodrine (Midodrine Hcl 10 Mg Tablet) 10 mg PO MOWEFR [facility] Last Admin: 02/14/24 19:31 Dose: 10 mg Documented By: ABETOTONY Ondansetron HCl (Ondansetron Hcl 4 Mg/2 Ml Vial) 4 mg IVPUSH Q8H PRN PRN Reason: Nausea and Vomiting Sevelamer Carbonate (Sevelamer Carbonate Tablet 800 Mg Tablet) 1,600 mg PO TID [facility] Last Admin: 02/16/24 08:02 Dose: 1,600 mg Documented By: EDNA Sodium Chloride (0.9 % Sodium Chloride Flush 3 Ml Syringe) [facility] Last Admin: 02/16/24 07:52 Dose: 3 ml Documented By: EDNA Torsemide (Torsemide 20 Mg Tablet) [facility]; Protocol Last Admin: 02/15/24 17:45 Dose: 40 mg Documented By: EDNA Labs 02/14/24 12:53 02/15/24 08:44 Labs: Laboratory Results - last 24 hr 02/15/24 02/15/24 02/15/24 08:44 10:25 12:15 Anion Gap 17 Estim Creat Clear Calc 16.2 Estimated GFR 12 POC Glucose 88 125 H Random Glucose 90 Calcium 8.7 D 02/15/24 02/15/24 02/16/24 16:12 20:11 07:27 Anion Gap Estim Creat Clear Calc Estimated GFR POC Glucose 103 153 H 82 Random Glucose Calcium Microbiology Microbiology Results: Microbiology 02/14/24 17:48 Urine Culture - Final Urine clean catch - Clean Catch Midstream Klebsiella pneumoniae 02/14/24 14:35 Blood Culture - Preliminary Blood - Venous No growth after 24 hours. 02/14/24 14:26 Blood Culture - Preliminary Blood - Venous No growth after 24 hours. Assessment and Plan (1) ESRD (end stage renal disease): Status: Acute (2) DM type 2 (diabetes mellitus, type 2): Status: Acute (3) Afib: Status: Acute Plan 78/m with r?paroxysmal AFib (PAF) on Eliquis, HLD, [id number] type 2 diabetes, ESRD on HD M/W/F, orthostatic hypotension, hypothyroidism, and mood disorder here with weakness and having missed dialysis, ? PNA on CXR but has no clinical findings of PNA Generalized Weakness likely from uti treat underlying uti PT eval for possible rehab UTI d/t klebsiela P. Ceftriaxone follow culture ESRD On HD M/W/F Missed dialysis yesterday so dialysis today Nephrology consult Diabetes sliding scale insulin hold glipizide diabetic diet ?PNA, CXR finding are subtle and has clinical no finding of PNA got Ceftriaxone and Azithro in ed, continue ceftriaxone and azithro for 5 days PAF Continue amiodarone, Eliquis HypoT Continue levothyroxine Mood disorder Continue bupropion Full Code DVT Prophylaxis: On Eliquis PT recommends STR admission for weakness and need for dialysis, uti Quality Stroke Does the patient have a stroke diagnosis?: No VTE Prior VTE?: No VTE Risk Level:: Medical - moderate - high VTE Device Contraindication: Treatment Not Indicated VTE Drug Contraindication: N/A - Med Ordered
[2024-02-16 11:24] LABS: Glucose, Whole Blood 98 mg/dL (60-115)
[2024-02-16] MEDS: cefTRIAXone sodium 1 GM VIAL IVPUSH (14:40)
[2024-02-16 15:34] VITALS: BP 136/73; PULSE 65; RESP 18; TEMP 36.8; O2SAT 98
[2024-02-16 16:18] LABS: Glucose, Whole Blood 117 mg/dL (60-115)
[2024-02-16] MEDS: Torsemide 20 MG TABLET 40 MG PO (17:30)
[2024-02-16] MEDS: Atorvastatin Calcium 20 MG TABLET PO (19:15)
[2024-02-16 19:29] VITALS: BP 143/67; PULSE 64; RESP 16; TEMP 37.2; O2SAT 100
[2024-02-16 19:39] LABS: Glucose, Whole Blood 131 mg/dL (60-115)
[2024-02-17 03:16] VITALS: BP 150/69; PULSE 75; RESP 14; TEMP 36.8; O2SAT 98
[2024-02-17] MEDS: Levothyroxine Sodium 75 MCG TABLET PO (06:00)
[2024-02-17 07:37] LABS: Glucose, Whole Blood 110 mg/dL (60-115)
[2024-02-17 07:52] VITALS: BP 160/73; PULSE 74; RESP 18; TEMP 36.3; O2SAT 97
[2024-02-17] MEDS: 0.9 % Sodium Chloride Flush 3 ML SYRINGE IVFLUSH ×2 (08:19→17:26)
[2024-02-17] MEDS: Azithromycin 250 MG TABLET PO (08:20)
[2024-02-17] MEDS: Sevelamer Carbonate Tablet 800 MG TABLET 1600 MG PO ×3 (08:20→19:02)
--- NOTE | 2024-02-17 09:19 | P.PNNP_ITS ---
Subjective Subjective Date of Service: 02/17/24 Interval history: Pt is a 78-year-old male with medical history significant for?paroxysmal AFib on Eliquis, HLD, [id number] type 2 diabetes, ESRD on HD M/W/F, orthostatic hypotension. missed dialysis Saturday, 01/05, due to feeling unwell, came to ED. Pt is covid positive, he is stable but is unable to care for him at home, needs to be discharged to rehab, rehab requires HD completed before discharge. pt is also being treated with PO abx for UTI sicne 01/03 Pt is followed by nephrology, Dr Marshall as an outpatinet. chronic anemia, H&H 8.8 and 01/06, received epogen 20,000 units with HD on Saturday electrolytes within normal limits, including potassium, calcium pt reports breathing is comfortable today. no tremors patient is alert and oriented denies nausea, vomiting, pruritus reports he has been passing urine with urinal plan for discharge to rehab today. Physical Exam 2 Vital Signs: Vital Signs: Last Vital Signs Temp 97.4 F 02/17/24 07:52 Pulse 74 02/17/24 07:52 Resp 18 02/17/24 07:52 BP 160/73 H 02/17/24 07:52 Pulse Ox 97 02/17/24 07:52 O2 Del Method Room Air 02/17/24 07:52 BMI result Body Mass Index 31.0 Objective Data Labs 02/14/24 12:53 02/15/24 08:44 Labs: Laboratory Results - last 24 hr 02/16/24 02/16/24 02/16/24 11:20 16:15 19:31 POC Glucose 98 117 H 131 H 02/17/24 07:19 POC Glucose 110 Microbiology Microbiology Results: Microbiology 02/14/24 14:35 Blood - Venous Blood Culture - Preliminary No growth after 48 hours. 02/14/24 14:26 Blood - Venous Blood Culture - Preliminary No growth after 48 hours. 02/14/24 17:48 Urine clean catch - Clean Catch Midstream Urine Culture - Final Klebsiella pneumoniae Procedures Date of Service Date of Service: 02/17/24 Assessment & Plan Time Spent With Patient Time: Total time managing care of this patient today ____ minutes. Progress Note: Quality Stroke Does the patient have a stroke diagnosis?: No
--- NOTE | 2024-02-17 09:29 | PM.CNNEP ---
History of Present Illness Reason for Consult Consult date: 02/17/24 Chief Complaint Chief complaint: uti, weakness and missed dialysis History of Present Illness Narrative: Pt is a 78-year-old male with medical history significant for?paroxysmal AFib on Eliquis, HLD, [id number] type 2 diabetes, ESRD on HD M/W/, orthostatic hypotension. Follows [facility] and gets HD M,W,F this Saturday, 02/13, missed HD as he was not feeling well, malaise UA concerning for UTI, cxr ? PNA, receiving abx pt received HD early Saturday morning He states he feels well today denies shortness of breath, chest pain denies nausea, vomiting denies tremors, denies pruritus states he is making some urine (condom cath), denies dysuria or difficulty emptying bladder, denies flank pain Denies other concerns/symptoms Review of Systems Constitutional: Reports fatigue Cardiovascular: Denies chest pain, Denies leg edema, Denies lightheadedness and Denies dyspnea Respiratory: Denies cough and Denies dyspnea Gastrointestinal: Denies abdominal pain, Denies constipation, Denies diarrhea, Denies nausea and Denies vomiting Genitourinary: Denies hematuria, Denies oliguria, Denies dysuria and Denies urinary frequency Musculoskeletal: Denies arthralgias and Denies muscle cramps Skin/Breast: Denies rash Endocrine: Reports fatigue PMFSH Past Medical History 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) ELIF (obstructive sleep apnea) ESRD (end stage renal disease) NSVT (nonsustained ventricular tachycardia) HLD (hyperlipidemia) HTN (hypertension) Afib Congestive heart disease Dialysis complication Kidney failure Low blood pressure DM type 2 (diabetes mellitus, type 2) Gallbladder calculus Family History Family History Maternal Grandmother Pancreatic cancer Mother Diabetes type 2, controlled Surgical History Surgical History Hx of surgical procedure History of surgery History of umbilical hernia repair History of tonsillectomy and adenoidectomy Social History Social History Household Members: Spouse Housing: House Do you presently have visiting nurse or other home services: No Alcohol intake: former Comment: [place] ABREU, COVID+ Patient Tobacco Use Status: Former Tobacco user Tobacco use type: Cigarette Smoked in Last 30 Days: No e-Cigarette/Vaping Use: Never Used Second Hand Smoke Exposure: No Use of substances other than those prescribed or required for medical reasons: No Currently Displaying Signs/Symptoms of Drug Intoxication Withdrawal: No Have you been hit, kicked, punched, or otherwise hurt by someone within the past year? If so, by whom?: No Do you feel safe in your current relationship?: Yes Is there a partner from a previous relationship who is making you feel unsafe now?: No Are you made to feel afraid or neglected: No Advance Directives: Yes Advance Directives on File: Yes Advance Directives Date on File: 02/14/24 Do you have a plan to hurt others: No Plan Recently lost weight without trying: No Nutrition Risks: No Nutritional Risk service: Yes Current occupational status: retired Cognitive needs: No Hearing needs: No Vision needs: Yes Meds Allergies Allergy/AdvReac Type Severity Reaction Status Date / Time oxycodone AdvReac Gastrointestinal Verified 02/14/24 12:01 Upset Active Medications: Current Medications Acetaminophen (Acetaminophen 325 Mg Tablet) 650 mg PO Q6H PRN PRN Reason: Pain, Mild (Pain Scale 1-3), fever or headache Amiodarone HCl (Amiodarone Hcl 200 Mg Tablet) 100 mg PO DAILY [facility] Last Admin: 02/16/24 08:03 Dose: 100 mg Apixaban (Apixaban 2.5 Mg Tablet) 2.5 mg PO BID [facility] Last Admin: 02/16/24 19:15 Dose: 2.5 mg Atorvastatin Calcium (Atorvastatin Calcium 20 Mg Tablet) 20 mg PO BEDTIME [facility] Last Admin: 02/16/24 19:15 Dose: 20 mg Azithromycin (Azithromycin 250 Mg Tablet) 250 mg PO Q24H [place] Stop: 02/18/24 07:31 Last Admin: 02/17/24 08:20 Dose: 250 mg Bupropion HCl (Bupropion Hcl Xl 300 Mg Tab.Er.24h) 300 mg PO DAILY [facility] Last Admin: 02/16/24 08:02 Dose: 300 mg Calcium Carbonate (Calcium Carbonate 750 Mg Tab.Chew) 750 mg PO Q4H PRN PRN Reason: Heartburn Ceftriaxone Sodium (Ceftriaxone Sodium 1 Gm Vial) 1 gm IVPUSH Q24H [facility] Last Admin: 02/16/24 14:40 Dose: 1 gm Glucose (Glucose Gel 15 Gm Gel..Gram.) 15 gm PO Q15M PRN; Protocol PRN Reason: per Hypoglycemia Standing Ord. Dextrose (D10) 250 mls @ 750 mls/hr IV Q15M PRN; Protocol PRN Reason: per Hypoglycemia Standing Ord. Insulin Human Lispro (Insulin Lispro 100 Unit/Ml 3 Ml Vial) 0 unit SUBCUT QIDACHS [facility]; Protocol Last Admin: 02/17/24 07:43 Dose: Not Given Levothyroxine Sodium (Levothyroxine Sodium 75 Mcg Tablet) 75 mcg PO DAILY@0600 [facility] Last Admin: 02/17/24 06:00 Dose: 75 mcg Lidocaine HCl (Lidocaine Hcl 1 % Mpf 2 Ml Vial) 0.5 ml SUBCUT MOWEFR@1645 [facility] Magnesium Hydroxide (Milk Of Magnesia 30 Ml Oral.Susp) 30 ml PO DAILY PRN PRN Reason: Constipation Melatonin (Melatonin 3 Mg Tablet) 6 mg PO BEDTIME PRN PRN Reason: Insomnia Midodrine (Midodrine Hcl 10 Mg Tablet) 10 mg PO MOWEFR [facility] Last Admin: 02/14/24 19:31 Dose: 10 mg Ondansetron HCl (Ondansetron Hcl 4 Mg/2 Ml Vial) 4 mg IVPUSH Q8H PRN PRN Reason: Nausea and Vomiting Sevelamer Carbonate (Sevelamer Carbonate Tablet 800 Mg Tablet) 1,600 mg PO TID [facility] Last Admin: 02/17/24 08:20 Dose: 1,600 mg Sodium Chloride (0.9 % Sodium Chloride Flush 3 Ml Syringe) [facility] Last Admin: 02/17/24 08:19 Dose: 3 ml Torsemide ([facility]semide 20 Mg Tablet) [facility]; Protocol Last Admin: 02/16/24 17:30 Dose: 40 mg Home Medications ?Medication ?Instructions ?Recorded ?Confirmed ?Last Taken ?Type apixaban 2.5 mg tablet (Eliquis) 2.5 mg PO BID 11/07/22 02/14/24 02/14/24 08:00 History glucosamine-chondroitin 250 mg-200 1 tab PO TIDWM 11/07/22 02/14/24 02/14/24 08:00 History mg tablet (Osteo Bi-Flex) melatonin 5 mg capsule 5 mg PO BEDTIME 11/07/22 02/14/24 02/13/24 History atorvastatin 20 mg tablet 20 mg PO BEDTIME 01/03/24 02/14/24 02/14/24 08:00 History sevelamer HCl 800 mg tablet 1,600 mg PO TID 01/03/24 02/14/24 02/14/24 08:00 History torsemide 20 mg tablet 40 mg PO [facility] 01/03/24 02/14/24 02/11/24 History midodrine 10 mg tablet 10 mg PO MOWEFR 01/05/24 02/14/24 02/12/24 History bupropion HCl 300 mg 24 hr tablet, 300 mg PO DAILY 02/14/24 02/14/24 02/14/24 08:00 History extended release (Wellbutrin XL) levothyroxine 75 mcg capsule 75 mcg PO DAILY@0600 02/14/24 02/14/24 02/14/24 08:00 History Physical Exam Vital Signs: Last Vital Signs Temp 97.4 F 02/17/24 07:52 Pulse 74 02/17/24 07:52 Resp 18 02/17/24 07:52 BP 160/73 H 02/17/24 07:52 Pulse Ox 97 02/17/24 07:52 O2 Del Method Room Air 02/17/24 07:52 BMI result Body Mass Index 31.0 Const General: no acute distress, alert and awake Resp Effort & Inspection: normal respiratory effort and able to speak in complete sentences Auscultation: rhonchi Cardio Rate: regular rate Rhythm: regular rhythm Heart sounds: S1 normal heart sound present and S2 normal heart sound present GI Palpation (GI): Soft to palpation and nontender General: Yes no CVA tenderness Back/Spine/Pelvis Back: no CVA tenderness Skin Lesions: no lesions Rashes: no rashes Extrem General: Yes edema (trace BLE edema) Results Lab Results 02/14/24 12:53 02/17/24 09:10 Lab results: Chemistry 02/14/24 02/15/24 12:53 08:44 Sodium 144 140 Potassium 4.5 3.2 L D Carbon Dioxide 26 23 BUN 64 H 28 H Creatinine 9.27 H* 4.67 H* Calcium 10.1 D 8.7 D Hematology 02/14/24 12:53 WBC 7.1 Hgb 10.7 L D Plt Count 114 L Urinalysis 02/14/24 17:27 Urine Color Yellow Urine Appearance Turbid Urine pH 7.5 Ur Specific [place] 1.010 Urine Protein 100 (2+) H Urine Glucose (UA) 100 H Urine Ketones Negative Urine Blood Moderate (2+) H Urine Nitrite Negative Ur Leukocyte Esterase Large (3+) H Urine RBC 6-10 H Urine WBC >50 H Ur Squamous Epith Cells 0-2 Hyaline Casts 3-5 Assessment and Plan (1) Weakness: Status: Acute (2) End stage renal disease on dialysis: Status: Acute (3) UTI (urinary tract infection): Qualifiers: Hematuria presence: with hematuria Urinary tract infection type: site unspecified Qualified Code(s): N39.0 - Urinary tract infection, site not specified; R31.9 - Hematuria, unspecified Status: Acute Plan ESRD on dialysis here with weakness and UTI Will get HD today to get back on Saturday, Saturday, Saturday schedule pt does not have any uremic symptoms he appears slightly hypervolemic with LE edema, will receive HD today chronic anemia, H&H 10.7 and 34.7, no indication for procrit at this time electrolytes within normal limits, including calcium; phosphorous only mildly elevated at 4.9 oliguric, continues to pass urine has LUE AV fistula, no complications noted, +thrill, +bruit blood pressures acceptable Will check PTH Continue current treatment plan recommend daily electrolytes including phosphorous while hospitalized recommend to continue supportive care, monitor blood pressures regularly will continue to follow Discussed with Dr Mendoza Procedures Date of Service Date of Service: 02/17/24
[2024-02-17 10:14] LABS: Anion Gap 18 (12-20); Blood Urea Nitrogen 52 mg/dL (9-16); Calcium 9.4 mg/dL (8.4-10.2); Carbon Dioxide 25 mmol/L (22-29); Chloride 97 mmol/L (96-108); Creatinine Clr Calc Pharmacy 9.1; Estimated Glomerular Filt Rate 6; Glucose Random 116 mg/dL (60-115); Phosphorus 4.9 mg/dL (2.7-4.5); Potassium 4.8 mmol/L (3.3-5.1); Sodium 135 mmol/L (135-145)
[2024-02-17 11:25] LABS: Glucose, Whole Blood 118 mg/dL (60-115)
--- NOTE | 2024-02-17 11:40 | HO.WOUND ---
Wound Consult: Initial 78yr old male? admitted to [facility] on 02/14/24 - See progress notes and H&P for detailed history.? Wound consult placed for Left Lower Leg wound.? Patient agreeable to assessment and photo documentation.? Patient reports he has chronic venous dermatitis and wounds that come and go. Bilateral Lower Legs Etiology: ??Venous Dermatitis / wounds Measurements: 1cm x 1cm x 0.1cm Wound Bed: red pink moist wound bed Drainage / Odor: None Edges: ? irregular and attached Karma wound: Hemosiderin Staining,? No Induration, Fluctuance or Warmth noted Pain: denies Goals of Treatment: ? Foam dressing to allow for moist wound healing Recommendations: 1. When applicable maintain blood glucose levels per Providers order. 2. Left Lower Leg - Elevate lower Legs - Cleanse with NS moist gauze, Pat dry. Apply skin prep to periwound, cover with foam dressing. Change every 3 days. Re-consult wound care Nurse for wound deterioration or wound changes.
--- NOTE | 2024-02-17 16:20 | MHC.CM.PN ---
pt to be tranferred to [facility] at 11 tomorrow
[2024-02-17 17:15] VITALS: BP 126/66; PULSE 96; RESP 18; TEMP 36.5; O2SAT 96
[2024-02-17 17:23] LABS: Glucose, Whole Blood 131 mg/dL (60-115)
[2024-02-17] MEDS: cefTRIAXone sodium 1 GM VIAL IVPUSH (17:26)
--- NOTE | 2024-02-17 18:19 | PC.NURSE ---
Pt HD today
[2024-02-17] MEDS: Apixaban 2.5 MG TABLET PO (19:02)
[2024-02-17] MEDS: Atorvastatin Calcium 20 MG TABLET PO (19:02)
[2024-02-17 19:41] VITALS: BP 131/56; PULSE 70; RESP 17; TEMP 36.2; O2SAT 94
[2024-02-17 20:08] LABS: Glucose, Whole Blood 133 mg/dL (60-115)
[2024-02-18] MEDS: 0.9 % Sodium Chloride Flush 3 ML SYRINGE IVFLUSH ×2 (00:06→09:29)
[2024-02-18 03:30] VITALS: BP 104/56; PULSE 86; RESP 18; TEMP 36.1; O2SAT 98
[2024-02-18] MEDS: Levothyroxine Sodium 75 MCG TABLET PO (07:05)
[2024-02-18 07:47] VITALS: BP 132/69; PULSE 90; RESP 18; TEMP 36.3; O2SAT 97
[2024-02-18 08:03] LABS: Glucose, Whole Blood 107 mg/dL (60-115)
--- NOTE | 2024-02-18 08:15 | P.PNNP_ITS ---
Subjective Subjective Date of Service: 02/18/24 Interval history: Pt is a 78-year-old male with medical history significant for?paroxysmal AFib on Eliquis, HLD, [id number] type 2 diabetes, ESRD on HD M/W/F, orthostatic hypotension. missed dialysis Saturday, 01/05, due to feeling unwell, came to ED. Pt is covid positive, he is stable but is unable to care for him at home, needs to be discharged to rehab, rehab requires HD completed before discharge. pt is also being treated with PO abx for UTI sicne 01/03 Pt is followed by nephrology, Dr Marshall as an outpatient. reports feeling ok today pt reports breathing is comfortable today. no tremors patient is alert and oriented denies nausea, vomiting, pruritus reports he has been passing urine with urinal, denies dysuria/flank pain Physical Exam 2 Vital Signs: Vital Signs: Last Vital Signs Temp 97.4 F 02/18/24 07:47 Pulse 90 02/18/24 07:47 Resp 18 02/18/24 07:47 BP 132/69 02/18/24 07:47 Pulse Ox 97 02/18/24 07:47 O2 Del Method Room Air 02/18/24 07:47 BMI result Body Mass Index 31.0 Const: General: no acute distress, alert and awake Resp: Effort & Inspection: normal respiratory effort and able to speak in complete sentences Auscultation: rhonchi Cardio: Rate: regular rate Rhythm: regular rhythm Heart sounds: S1 normal heart sound present and S2 normal heart sound present GI: Palpation (GI): Soft to palpation and nontender : General: Yes no CVA tenderness Back/Spine/Pelvis: Back: no CVA tenderness Skin: Lesions: no lesions Rashes: no rashes Extrem: General: Yes edema (trace BLE edema) Objective Data Labs 02/14/24 12:53 02/18/24 09:19 Labs: Laboratory Results - last 24 hr 02/17/24 02/17/24 02/17/24 09:10 11:11 17:17 Sodium 135 Potassium 4.8 D Chloride 97 Carbon Dioxide 25 Anion Gap 18 BUN 52 H Creatinine 8.30 H* Estim Creat Clear Calc 9.1 Estimated GFR 6 POC Glucose 118 H 131 H Random Glucose 116 H Calcium 9.4 D Phosphorus 4.9 H PTH Intact 02/17/24 02/18/24 02/18/24 19:38 07:51 09:19 Sodium 134 L Potassium 4.6 Chloride 100 Carbon Dioxide 21 L Anion Gap 18 BUN 49 H Creatinine 7.01 H* Estim Creat Clear Calc 10.8 Estimated GFR 8 POC Glucose 133 H 107 Random Glucose 113 Calcium 9.0 Phosphorus 4.8 H PTH Intact 536.8 H Microbiology Microbiology Results: Microbiology 02/14/24 14:35 Blood - Venous Blood Culture - Preliminary No growth after 48 hours. 02/14/24 14:26 Blood - Venous Blood Culture - Preliminary No growth after 48 hours. 02/14/24 17:48 Urine clean catch - Clean Catch Midstream Urine Culture - Final Klebsiella pneumoniae Procedures Date of Service Date of Service: 02/18/24 Assessment & Plan Assessment and plan (1) End stage chronic kidney disease: Status: Acute Plan ESRD patient who missed HD Friday 01/05 due to fatigue/weakness likely secondary to covid infection and reduced PO intake. Pt doing well and receiving his HD M,, schedule (last HD yesterday). Clinically doing well. patient has left upper extremity AV fistula with palpable thrill and bruit to auscultation no uremic symptoms mildly acidotic with serum bicarb of 21 H&H 10/7 and 34.7, no indication for procrit at this time calcium normal at 9.0 and phosphorous mildly elevated at 4.8 PTH elevated at 536 - will manage outpatient as pt is being discharged today patient appears euvolemic should follow up with outpatient embalmer apprentice at [facility] once discharged from hospital. Discussed with Dr Mendoza. Time Spent With Patient Time: Total time managing care of this patient today ____ minutes. Progress Note: Quality Stroke Does the patient have a stroke diagnosis?: No
--- NOTE | 2024-02-18 08:42 | PM.DS ---
DS: Providers Provider Date of Service: 02/18/24 Date of admission: 02/14/24 18:24 Date of discharge: 02/18/24 Primary care physician: Na White MD Consults: 02/14/24 18:26 Consult to Nephrology Routine Consulting Provider: [facility] Reason for consultation: missed dialysis Has provider been notified: Yes 02/14/24 21:04 Consult to Wound Care Routine Reason for consultation: left lower leg x2 open areas Has provider been notified: No Attending physician on discharge: Bethanie Cortez Discharging clinician: Bethanie Cortez DS: Diagnosis Discharge Diagnosis (1) Weakness: Status: Acute (2) End stage renal disease on dialysis: Status: Acute (3) UTI (urinary tract infection): Status: Acute DS: Summary Hospital Course Hospital Course: HPI: 78-year-old male with a PMH significant for?paroxysmal AFib on Eliquis, HLD, [id number] type 2 diabetes, ESRD on HD M/W/F, orthostatic hypotension, hypothyroidism. He presents to the ED feeling and missed dialysis. He was dc from the hospital nearly 4 weeks ago and went to rehab and was discharged home 3 weeks ago and has been declining and feeling weak and could not go to dialysis today. He has no sob, chest of gi complaint. No fever, wbc. A routine CXR some hazziness and is given antibiotics for pneumonia. Attempt to discharge to SNF form the ED was unsucesfull. Hospital course: 78-year-old male with generalized weakness likely to UTI, also missed dialysis, chest x-ray finding are subtle ? Pneumonia: Patient was started on IV antibiotics, nephro was consulted hemodialysis was done, in addition patient urine cultures , blood culture sent: Patient seems to be improved with supportive care with dialysis, blood culture negative at 48 hour, urine culture positive for Klebsiella pneumoniae: Patient was switched to p.o. Levaquin 250 mg for 5 more days, already received 3 days of ceftriaxone. ?PNA, CXR finding are subtle and has clinical no finding of PNA. got Ceftriaxone and Azithro in ed, continue levaflox as below. chronic venous dermatitis : seeb by wound care-Left Lower Leg - Elevate lower Legs - Cleanse with NS moist gauze, Pat dry. Apply skin prep to periwound, cover with foam dressing. Change every 3 days plan: complete Levaquin 250 mg for 5 more days. Please repeat chest imaging in 3-4 weeks to see resolution of chest x-ray findings. Further management outpatient. Patient will be going to [facility] rehab today. Assessment and plan coordination time spent 40 minute. Time Attestation Total time managing care of this patient today: 40 mintues. Discharge Coordination Time (in mins): 40 min Quality: Safe Use of Opioids Does Pt have an Active Cancer Diagnosis on the Problem List?: No Quality: Stroke Does the patient have a stroke diagnosis?: No Physical Exam Vital Signs: Vital Signs: Last Vital Signs Temp 97.4 F 02/18/24 07:47 Pulse 90 02/18/24 07:47 Resp 18 02/18/24 07:47 BP 132/69 02/18/24 07:47 Pulse Ox 97 02/18/24 07:47 O2 Del Method Room Air 02/18/24 07:47 BMI result Body Mass Index 31.0 General: AO X 3, no acute distress Resp: CTA bilateral CVS: S1,S2,RRR GI: +BS, NT, no distention Skin: No rash, bilateral chronic stais dermatitis Neuro: motor grossly intact Psych: appropriate affect DS: Data Data Completed and Pending Labs on day of discharge: Laboratory Results - last 24 hr 02/17/24 02/17/24 02/17/24 09:10 11:11 17:17 Sodium 135 Potassium 4.8 D Chloride 97 Carbon Dioxide 25 Anion Gap 18 BUN 52 H Creatinine 8.30 H* Estim Creat Clear Calc 9.1 Estimated GFR 6 POC Glucose 118 H 131 H Random Glucose 116 H Calcium 9.4 D Phosphorus 4.9 H 02/17/24 02/18/24 19:38 07:51 Sodium Potassium Chloride Carbon Dioxide Anion Gap BUN Creatinine Estim Creat Clear Calc Estimated GFR POC Glucose 133 H 107 Random Glucose Calcium Phosphorus Preliminary micro results at discharge 02/14/24 14:35 Blood Culture - Preliminary Blood - Venous No growth after 48 hours. 02/14/24 14:26 Blood Culture - Preliminary Blood - Venous No growth after 48 hours. Imaging Chest x-ray: Radiologist's impression: ITS Impressions Chest X-Ray 02/14/24 12:06 IMPRESSION: Hazy opacity in the left lung base may represent infectious or inflammatory process. Trace left pleural effusion. Electronically signed by: Rey Badillo MD 02/14/2024 01:04 PM [facility] Discharge Plan Discharge Anticipated Discharge Date/Time: 02/18/24 08:26 Patient Disposition: Xfer SNF Discharge Diagnosis: uti , question of penumonia Referrals: [facility] [Other] - 1 Week Na White MD [Primary Care Provider] - 1 Week Discharge Medications: Continued amiodarone 200 mg tablet 100 mg PO DAILY 90 Days Qty: 45 3RF atorvastatin 20 mg tablet 20 mg PO BEDTIME torsemide 20 mg tablet 40 mg PO SUTUTHSA Rx Instructions: non dialysis days, sun, tues, thurs, sat. sevelamer HCl 800 mg tablet 1,600 mg PO TID midodrine 10 mg tablet 10 mg PO MOWEFR Rx Instructions: prior to dialysis bupropion HCl [Wellbutrin XL] 300 mg tablet extended release 24 hr 300 mg PO DAILY levothyroxine 75 mcg capsule 75 mcg PO DAILY@0600 Eliquis 2.5 mg tablet 2.5 mg PO BID glucosamine-chondroitin [Osteo Bi-Flex] 250-200 mg tablet 1 tab PO TIDWM Rx Instructions: give after food/meal melatonin 5 mg capsule 5 mg PO BEDTIME glipizide 2.5 mg tablet extended release 24hr 2.5 mg PO DAILY Qty: 90 3RF clotrimazole-betamethasone 1-0.05 % cream 1 appl topical BID 14 Days Qty: 45 3RF Discharge Orders: Discharge Order (Routine); Ordered 02/18/24 Ordered By: Bethanie Cortez Diet: Advance to usual diet Activity on Discharge: As tolerated Stand Alone Forms: Patient Portal Discharge page Print Language: Gambian Care Plan Goals: 78-year-old male with generalized weakness likely to UTI, also missed dialysis, chest x-ray finding are subtle ? Pneumonia: Patient was started on IV antibiotics, nephro was consulted hemodialysis was done, in addition patient urine cultures , blood culture sent: Patient seems to be improved with supportive care with dialysis, blood culture negative at 48 hour, urine culture positive for Klebsiella pneumoniae: Patient was switched to p.o. Levaquin 250 mg for 5 more days, already received 3 days of ceftriaxone. Please repeat chest imaging in 3-4 weeks to see resolution of chest x-ray findings. Further management outpatient. [facility] Health Concerns: As above. Plan of Treatment: As above. Assessment: As above.
--- NOTE | 2024-02-18 08:53 | MHC.CM.PN ---
pts notified of dc to [facility] at 11 today
[2024-02-18] MEDS: Sevelamer Carbonate Tablet 800 MG TABLET 1600 MG PO (09:28)
[2024-02-18] MEDS: levoFLOXacin 250 MG TABLET PO (09:29)
[2024-02-18] MEDS: buPROPion HCl XL 300 MG TAB.ER.24H PO (09:29)
[2024-02-18] MEDS: Amiodarone HCL 200 MG TABLET 100 MG PO (09:29)
[2024-02-18] MEDS: Apixaban 2.5 MG TABLET PO (09:29)
[2024-02-18] MEDS: Azithromycin 250 MG TABLET PO (09:29)
[2024-02-18 09:41] LABS: Anion Gap 18 (12-20); Blood Urea Nitrogen 49 mg/dL (9-16); Carbon Dioxide 21 mmol/L (22-29); Chloride 100 mmol/L (96-108); Creatinine Clr Calc Pharmacy 10.8; Estimated Glomerular Filt Rate 8; Glucose Random 113 mg/dL (60-115); Phosphorus 4.8 mg/dL (2.7-4.5); Potassium 4.6 mmol/L (3.3-5.1); Sodium 134 mmol/L (135-145)
[2024-02-18 09:49] LABS: Parathyroid Hormone Intact 536.8 pg/mL (8.7-77.1)
== END 2024-02-18 11:55 | disposition skilled nursing facility (03) | DRG 689 ==
LOC: HO.ED 13:27 → HO.EDOVER 18:39 → HO.S3 19:27
PROVIDERS: Nurse Practitioner Family; Admitting Provider Internal Medicine; Emergency Provider Emergency Medicine; PCP Internal Medicine; Visit Provider Internal Medicine
DX: N39.0 Urinary tract infection, site not specified (principal); J18.9 Pneumonia, unspecified organism; N18.6 End stage renal disease; I12.0 Hypertensive chronic kidney disease with stage 5 chronic kidney disease or end stage renal disease; B96.1 Klebsiella pneumoniae [K. pneumoniae] as the cause of diseases classified elsewhere; I87.2 Venous insufficiency (chronic) (peripheral); I48.0 Paroxysmal atrial fibrillation; E03.9 Hypothyroidism, unspecified; E11.22 Type 2 diabetes mellitus with diabetic chronic kidney disease; Z99.2 Dependence on renal dialysis; Z20.822 Contact with and (suspected) exposure to COVID-19; Z91.158 Patient's noncompliance with renal dialysis for other reason; Z79.01 Long term (current) use of anticoagulants; Z79.84 Long term (current) use of oral hypoglycemic drugs; Z79.890 Hormone replacement therapy; Z79.899 Other long term (current) drug therapy
CPT/HCPCS: 0241U; 36415; 71046; 80048; 80053; 81001; 82947; 83605; 83735; 83970; 84100; 85025; 85610; 87040; 87086; 87088; 87186; 90656; 90999; 93005; 97162; 99285; J0456; J0696

== ENCOUNTER → 2024-02-14 12:05 | Outpatient (BNV) | payer MEDICARE, OTHER, SELFPAY | PROVIDERS: Emergency Provider Emergency Medicine; PCP Internal Medicine; Visit Provider Internal Medicine Cardiovascular Disease | DX: R53.1 Weakness (principal) | CPT/HCPCS: 93010 ==

== ENCOUNTER → 2024-02-14 18:24 | Outpatient (BNV) | payer MEDICARE, OTHER, SELFPAY | PROVIDERS: Admitting Provider Internal Medicine; Emergency Provider Emergency Medicine; PCP Internal Medicine; Visit Provider Internal Medicine | DX: E11.22 Type 2 diabetes mellitus with diabetic chronic kidney disease (principal); N18.6 End stage renal disease; Z99.2 Dependence on renal dialysis; N39.0 Urinary tract infection, site not specified | CPT/HCPCS: 99223; 99232; 99239 ==

== ENCOUNTER → 2024-02-14 18:24 | Outpatient (BNV) | payer MEDICARE, OTHER, SELFPAY | PROVIDERS: Admitting Provider Internal Medicine; Emergency Provider Emergency Medicine; PCP Internal Medicine; Visit Provider Nurse Practitioner Family | DX: N18.6 End stage renal disease (principal); Z99.2 Dependence on renal dialysis | CPT/HCPCS: 90935; 99232 ==

== ENCOUNTER 2024-04-13 09:58 | Inpatient (IN) | payer MEDICARE, OTHER, SELFPAY ==
[2024-04-13] VITALS (10 sets, daily range): BP systolic 96–147; BP diastolic 44–93; PULSE 66–71; RESP 14–24; TEMP 36.3–36.8; O2SAT 88–100; BMI 34.7
--- NOTE | 2024-04-13 | ECG_ITS ---
Test Reason : DYSPNEA Blood Pressure : / mmHG Vent. Rate : 065 BPM Atrial Rate : 000 BPM P-R Int : 000 ms QRS Dur : 098 ms QT Int : 484 ms P-R-T Axes : 000 000 018 degrees QTc Int : 503 ms Undetermined rhythm Possible Inferior infarct (cited on or before 03-JAN-2024) Anteroseptal infarct (cited on or before 03-JAN-2024) Abnormal ECG When compared with ECG of 14-FEB-2024 13:06, possible rhythm change Nonspecific T wave abnormality now evident in Lateral leads QT has lengthened Referred By: Generic ED Physician Electronically Signed By:ADOLFO LEMOS
--- NOTE | ~2024-04-13 | XR_ITS ---
CLINICAL HISTORY: sudden onset of shortness of breath, wheezing 1 view chest x-ray Comparison: CR/GA/SR - XR CHEST 2V - 04/13/24 10:36 EST Findings: Similar prominent/enlarged cardiac silhouette. [id number]-left infrahilar atelectasis, similar to prior. No significant pleural effusion or pneumothorax. Developing bronchial wall thickening. Prominent cardiac silhouette. No acute fracture. IMPRESSION: Persistent vrazk-pgpsoja-vnjo-left atelectasis. Developing bronchial wall thickening. This document has been electronically signed by: Craig Aaron MD on 04/14/2024 04:48:48
--- NOTE | ~2024-04-13 | CT_ITS ---
EXAMINATION: CT CHEST WITHOUT CONTRAST CLINICAL INFORMATION: Shortness of breath. Rule out pneumonia. COMPARISON: Chest x-ray 04/13/2024 TECHNIQUE: Multidetector volumetric CT imaging of the chest was done. Axial MIP volume rendering provided. Sagittal and coronal reformatted images were obtained. This CT examination was performed using dose optimization techniques as appropriate, variously including the following: *Automated exposure control *Adjustment of mA and/or kV according to patient size (this includes techniques or standardized protocols for targeted exams where dose is matched to indication/reason for exam; i.e. extremities or head) *Use of iterative reconstruction technique FINDINGS: TRACK BROOM OPERATOR: Hypoexpanded lungs LUNGS: The lungs are clear with no evidence of acute consolidation. There is a 1-2 mm calcification right upper lobe. There is a broad band of atelectasis right lung base and minimal atelectasis left lung base. No interstitial thickening seen. No bronchiectasis.. MEDIASTINUM: Thyroid lobes are symmetrical and normal. The central trachea and bronchial airway are widely patent. Heart size and the great vessels are normal caliber. No abnormal size mediastinal or hilar lymph nodes seen. There is no pericardial effusion CORONARY ARTERY CALCIFICATION: Mild to moderate coronary artery calcification present. PLEURA: There is no pleural effusion. No pleural mass or thickening. AXILLA: No lymphadenopathy. UPPER ABDOMEN: Visualized liver, spleen and adrenal glands are unremarkable. OSSEOUS STRUCTURES: There is exaggerated thoracic kyphosis with compression deformity T12 vertebra most likely old. There is mild ventral spondylosis mid and lower dorsal spine. No lytic or sclerotic process seen. CT/CT chest wo IV con IMPRESSION: No acute cardiopulmonary process seen. Right basilar bandlike atelectasis likely old inflammatory process Fleischner guidelines were followed. Electronically signed by: Deandre Lunsford MD 04/13/2024 05:08 PM [facility]
--- NOTE | ~2024-04-13 | CT_ITS ---
EXAMINATION: CT ABDOMEN AND PELVIS WITHOUT CONTRAST CLINICAL INFORMATION: Large ecchymosis, right lower back. COMPARISON: None available. TECHNIQUE: Multidetector volumetric imaging was performed from the superior aspect of the liver through the pubic symphysis. Sagittal and coronal reformatted images were obtained on the technologist's workstation. This CT examination was performed using dose optimization techniques as appropriate, variously including the following: *Automated exposure control *Adjustment of mA and/or kV according to patient size (this includes techniques or standardized protocols for targeted exams where dose is matched to indication/reason for exam; i.e. extremities or head) *Use of iterative reconstruction technique. Dose: 1402 mGy centimeter. FINDINGS: Limited examination of the intra-abdominal organs and vascular structures due to lack of IV contrast. LUNG BASES: Patchy pulmonary groundglass, lung bases. Calcified plaques in the coronary arteries. Mixed plaques in the descending thoracic aorta. LIVER, GALLBLADDER, AND BILIARY TREE: Liver measures 15 cm. Gallbladder is absent. No intrahepatic or extrahepatic biliary ductal dilatation. PANCREAS: No peripancreatic fluid collections. No main pancreatic ductal dilatation. Volume loss. SPLEEN: 9 cm. Accessory spleen in the splenic hilum. ADRENAL GLANDS: Less than 1 cm low-density nodules, bilaterally measuring -1.6 and -1.2 Hounsfield units. KIDNEYS AND URETERS: Renal cortical thinning. Multifocal exophytic and cortical medullary junction cystic lesions with partial calcifications. No hydronephrosis. Probable nonobstructing nephrolithiasis in the lower pole right kidney. Vascular calcifications in the renal hilum bilaterally. BLADDER: Fluid-filled. GASTROINTESTINAL TRACT: Abundant stool within the large intestine. The rectum protrudes near the perineum. No intestinal obstruction pattern. No ascites. No pneumoperitoneum. No hemoperitoneum. No hematoma, mesenteric. No pneumatosis intestinalis. I do not see the appendix. Numerous diverticula in the sigmoid colon. No hematoma, retroperitoneum.. ABDOMINAL WALL: Fat-containing umbilical/periumbilical hernia and inguinal hernias bilaterally, left greater than the right side. LYMPH NODES: No specific prominent less than 1 cm lymph nodes, retroperitoneum. VASCULAR: Calcified plaques throughout the mesenteric arteries, splenic artery, renal arteries, iliac arteries femoral arteries. No aneurysm in the abdominal aorta. PELVIC VISCERA: The seminal vesicles are not enlarged. The prostate gland is small/atrophic and or absent. OSSEOUS STRUCTURES: Multilevel thoracolumbar spondylosis. Superior endplate compression deformity representing 50% volume loss at T12 likely subacute to old. Osteopenia versus osteoporosis. Degenerative changes in the coxofemoral joints and sacroiliac joints. I do not see acute fracture in the bony pelvis the soft tissue contusion within the fat planes of the right lower back/gluteal region, the largest component measures [address]/CT abdomen pelvis wo IV con IMPRESSION: Soft tissue contusion/hematoma right lower back/gluteal fat plane. No acute fracture. No hematoma, retroperitoneum. No hemoperitoneum. Coronary artery disease and atherosclerosis disease. Medical renal disease. Bilateral renal cysts. Lipid rich adenoma, bilaterally. Fat-containing periumbilical and inguinal hernias.. Fleischner guidelines were followed. Electronically signed by: Ryan Olmedo MD 04/13/2024 03:30 PM [facility]
--- NOTE | ~2024-04-13 | XR_ITS ---
EXAMINATION: XR CHEST CLINICAL INFORMATION: sob COMPARISON: X-ray dated February 14, 2024. TECHNIQUE: 2 views of the chest were obtained. FINDINGS: Poor inspiration/low volume. No gross consolidation, pleural effusion or pneumothorax. Cardiomediastinal silhouette is normal in size. Pulmonary reticular pattern. Multilevel spondylosis and dextroconvex curvature of the axial skeleton. XR/XR chest 2V IMPRESSION: No acute airspace disease. Consider chronic interstitial lung disease. Mild superimposed interstitial lung edema cannot be excluded. Electronically signed by: Ryan Olmedo MD 04/13/2024 10:43 AM [facility]
[2024-04-13 10:50] LABS: MANUAL DIFF FLAG NO
[2024-04-13 10:52] LABS: Basophils Percent Auto 0.3 % (0-2); Eosinophils Absolute Auto 0.1 X10*3/uL (0.0-0.4); Eosinophils Percent Auto 0.9 % (0-4); Hematocrit 25.8 % (42.0-52.0); Hemoglobin 8.1 g/dl (14.0-18.0); Imm Gran Pct Auto 0.9 % (0.0-0.4); Lymphocytes Absolute Auto 0.8 X10*3/uL (1.2-4.9); Lymphocytes Percent Auto 7.9 % (20-40); Mean Corpuscular HGB Conc 31.4 g/dl (31.0-36.0); Mean Corpuscular Hemoglobin 35.7 pg (27.0-33.0); Mean Corpuscular Volume 113.7 fL (80.0-98.0); Mean Platelet Volume 9.5 fL (9.4-12.4); Monocytes Absolute Auto 0.6 X10*3/uL (0.1-1.2); Monocytes Percent Auto 6.1 % (2-11); Neutrophils Absolute Auto 8.8 x10*3/uL (2.0-8.3); Neutrophils Percent Auto 83.9 % (45-73); Platelet Count 113 X10*3/uL (160-400); Red Blood Count 2.27 X10*6/uL (4.60-5.80); Red Cell Distribution Width 16.2 % (11.0-16.0); White Blood Count 10.5 X10*3/uL (4.8-10.8)
[2024-04-13 10:58] LABS: INTERNATIONAL NORM RATIO 1.2 (0.9-1.1); Prothrombin Time 14.4 SEC (10.9-12.4)
[2024-04-13 11:01] LABS: Partial Thromboplastin Time 34.2 SEC (26.0-36.8)
[2024-04-13 11:14] LABS: Alanine Aminotransferase 8 U/L (0-40); Albumin Level 3.2 g/dL (3.5-5.0); Alkaline Phosphatase 110 U/L (39-117); Anion Gap 17 (12-20); Aspartate Amino Transferase 17 U/L (5-37); Blood Urea Nitrogen 65 mg/dL (9-16); Calcium 7.3 mg/dL (8.4-10.2); Carbon Dioxide 24 mmol/L (22-29); Chloride 107 mmol/L (96-108); Glucose Random 113 mg/dL (60-115); Potassium 4.6 mmol/L (3.3-5.1); Sodium 143 mmol/L (135-145); Total Protein 5.8 g/dL (6.5-8.0)
[2024-04-13 11:16] LABS: Creatinine Clr Calc Pharmacy 7.7; Estimated Glomerular Filt Rate 6
[2024-04-13 11:17] LABS: B Type Natriuretic Peptide 516 pg/mL (<100)
--- NOTE | 2024-04-13 11:22 | PC.NURSE ---
a&ox4. vss and up to date. nsr on the monitor worker. pt biba from home c/o dyspnea w/ exertion, dizziness and productive cough x 1 week. pt denies any chest pain/palpitations/fever/chills. pt also reports increase in witnessed falls at home. walker baseline as an assistive device. pt reports fall yesterday when he thought he was sitting down into a chair but then missed and landed on his right side. -headstrike, -loc, +thinners (eloquis). large bruise noted to pt's right side. ecchymosis noted to pt's entire right side of his back, hip, as well as right upper leg. pt denies any pain at site. pt also reports he goes to dialysis MWF - AV fistula in the LUE. +bruit/thrill. 18gIV in the right AC via EMS - patent/intact. labs obtained/sent to lab. ekg obtained/provided to . pt on RA w/o difficulty @ 100%. no sob/wob noted. respirations even/unlabored. productive cough noted. crackles noted throughout. pt waiting to be seen by ED provider. plan of care ongoing. call cottrell placed within reach.
[2024-04-13 11:30] LABS: Influenza A PCR NEGATIVE (Negative); Influenza B PCR NEGATIVE (Negative); Resp Syncy Virus RNA Qual PCR NEGATIVE (Negative); SARS COV2 PCR INHOUSE NEGATIVE (Negative)
--- NOTE | 2024-04-13 13:22 | ED_ITS ---
HPI - SOB/Dyspnea General Chief Complaint: Dyspnea Stated Complaint: COUGH W/SOB,DIZZY X1W PER EMS Time Seen by Provider: 04/13/24 13:02 Source: patient, family and EMS Mode of arrival: EMS Limitations: no limitations History of Present Illness ED Provider: Dr. Yue Dill HPI Narrative: Patient comes to the emergency room complaining of shortness of breath for about a week. Patient states that he has been coughing quite a bit. Denies fever chills. Patient denies lower extremity swelling. Patient states that he feels minimally weak. The problem is that any time that he tries to get up and walk, within a few steps he feels significantly short of breath. According to the patient's , the patient has been falling more than usual. On , patient fell and since then he has had a large ecchymosis in his right lower back. Patient takes Eliquis for atrial fibrillation. According to the patient, he has fallen multiple times, states that he has not hit his head or lost consciousness. Patient denies headache or neck pain. Patient denies worsening lower extremity edema. Patient states that today he was so short of breath with minimal exertion that he could not go to dialysis so he missed his appointment today. Related Data Home Medications ?Medication ?Instructions ?Recorded ?Confirmed apixaban 2.5 mg tablet (Eliquis) 2.5 mg PO BID 11/07/22 02/14/24 glucosamine-chondroitin 250 mg-200 1 tab PO TIDWM 11/07/22 02/14/24 mg tablet (Osteo Bi-Flex) melatonin 5 mg capsule 5 mg PO BEDTIME 11/07/22 02/14/24 atorvastatin 20 mg tablet 20 mg PO BEDTIME 01/03/24 02/14/24 sevelamer HCl 800 mg tablet 1,600 mg PO TID 01/03/24 02/14/24 torsemide 20 mg tablet 40 mg PO SUTUTHSA 01/03/24 02/14/24 midodrine 10 mg tablet 10 mg PO MOWEFR 01/05/24 02/14/24 bupropion HCl 300 mg 24 hr tablet, 300 mg PO DAILY 02/14/24 02/14/24 extended release (Wellbutrin XL) levothyroxine 75 mcg capsule 75 mcg PO DAILY@0600 02/14/24 02/14/24 Previous Rx's ?Medication ?Instructions ?Recorded amiodarone 200 mg tablet 100 mg (1/2 x 200 mg) PO DAILY 90 12/11/23 days #45 tabs clotrimazole-betamethasone 1 1 appl topical BID 2 weeks #45 01/27/24 %-0.05 % topical cream grams glipizide 2.5 mg tablet, extended 2.5 mg PO DAILY #90 tabs 01/27/24 release 24 hr levofloxacin 250 mg tablet 250 mg PO Q24H #5 tabs 02/18/24 Allergies Allergy/AdvReac Type Severity Reaction Status Date / Time oxycodone AdvReac Gastrointestinal Verified 04/13/24 10:16 Upset Review of Systems 2 Review of Systems: Constitutional : No Weight loss, No Fever, No Chills, No Night Sweats, No Fatigue, No Malaise ENT/Mouth : No Hearing loss, No Ear Pain, No Nasal Congestion, No Sinus Pain, No Hoarseness, No sore throat, No Rhinorrhea, No Swallowing Difficulty Eyes: No Eye Pain, No Swelling, No Redness, No Foreign Body, No Discharge, No Vision Changes Cardiovascular : No Chest Pain, complaining of shortness of breath with exertion, positive orthopnea Respiratory : compl Complaining of cough, shortness of breath with exertion Gastrointestinal : No Nausea, No Vomiting, No Diarrhea, No Constipation, No abdominal Pain, No Hematochezia, No Melena Genitourinary : no irregular bleeding, No Dysuria, No Urinary Frequency, No Hematuria, No Urinary Incontinence, No Urgency, No Flank Pain, No Urinary Flow Changes, No Hesitancy Musculoskeletal : No joint pain, No Myalgias, No Joint Swelling Skin : No Skin Lesions, No rash Neuro : No Weakness, No Numbness, No Paresthesias, No Loss of Consciousness, No Dizziness, No Headache Psych : No Anxiety/Panic, No Depression, No SI/HI/AH/VH, No Social Issues, Heme/Lymph: No Bruising, No Bleeding,No Lymphadenopathy Endocrine : No Polyuria, No Polydipsia, No Temperature Intolerance [facility] Past Medical History 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) ELIF (obstructive sleep apnea) ESRD (end stage renal disease) NSVT (nonsustained ventricular tachycardia) HLD (hyperlipidemia) HTN (hypertension) Afib Congestive heart disease Dialysis complication Kidney failure Low blood pressure DM type 2 (diabetes mellitus, type 2) Gallbladder calculus Surgical History Hx of surgical procedure History of surgery History of umbilical hernia repair History of tonsillectomy and adenoidectomy Family History Family History Maternal Grandmother Pancreatic cancer Mother Diabetes type 2, controlled Social History Social History Household Members: Spouse Housing: House Do you presently have visiting nurse or other home services: No Alcohol intake: former Comment: MS ABREU, COVID+ Patient Tobacco Use Status: Former Tobacco user Tobacco use type: Cigarette Smoked in Last 30 Days: No e-Cigarette/Vaping Use: Never Used Second Hand Smoke Exposure: No Use of substances other than those prescribed or required for medical reasons: No Advance Directives: Yes Advance Directives on File: Yes Advance Directives Date on File: 02/14/24 Do you have a plan to hurt others: No Plan service: Yes Current occupational status: retired Cognitive needs: No Hearing needs: No Vision needs: Yes Physical Exam 2 Vital Signs: Vital Signs: Last Vital Signs Temp 98.0 F 04/13/24 16:16 Pulse 68 04/13/24 16:16 Resp 16 04/13/24 16:16 BP 109/48 L 04/13/24 16:16 Pulse Ox 99 04/13/24 16:16 O2 Del Method Room Air 04/13/24 16:16 BMI result Body Mass Index 34.7 Const: Other: Appearance: Alert. Oriented X3. No acute distress. Eyes: Pupils equal, round and reactive to light. ENT: Pharynx normal. Neck: Normal inspection. Neck supple. No lymph nodes noted. No crepitus CVS: Normal heart rate and rhythm. Pulses normal. Normal S1 and S2 Respiratory: No respiratory distress. patient has bilateral rales and crackles, very minimal wheezing Abdomen: Soft and nontender. No rigidity. No distention. Skin: patient has an extensive ecchymosis from the right side of the buttocks all the way to the right lower quadrant and right flank Extremities: No lower extremity edema. No Lacerations. No Rash Neuro: Oriented X 3. No motor deficit. No sensory deficit. Moving all extremities. No slurred speech. CN 2 through 12 grossly intact Psych: calm, cooperative, normal affect Medical Decision Making Medical Decision Making [facility] Narrative: my interpretation of labs: Patient's hemoglobin is 8.1, in February it was 10.7. It may be secondary to patient's ecchymosis versus occult GI bleed secondary to being on Eliquis. . Patient does have chronic anemia due to dialysis. Patient's chemistry shows a BUN of 65, creatinine 9.2, patient missed dialysis today. Potassium 4.6. Troponin 45, likely secondary to elevated BNP of 516, no previous BNPs available for comparison. Patient was ambulated in his room. Patient got significantly short of breath just from sitting up. Could not walk much further. Patient denies any chest pain. Oxygen saturation was 91% but we stopped the for any further exertion patient has a very extensive ecchymosis in the right side of his lower back, buttocks extending into the right flank and right lower abdomen. It has been present for almost 2 weeks from a previous fall. CT scan of the chest abdomen pelvis pending, patient's creatinine is too elevated to use contrast my interpretation of chest x-ray: Pulmonary edema. No obvious infiltrates. However difficult to evaluate due to Overlying edema chest CT my interpretation: Mild edema, no pneumonia abdomen/pelvis CT: soft tissue hematoma right lower back / gluteal fat plane patient missed dialysis today. However, this time patient does not need emergent dialysis. Differential Diagnosis Differential Diagnoses: The differential diagnosis associated with the presentation includes ( CHF, pneumonia) Admission/Observation Consideration of admission/observation: Escalation of care including admission/observation considered Consult Healthcare Provider Management of the patient was discussed with: Hospitalist Lab Data [facility] Lab Attestation statement: I reviewed the patient's lab results. 04/13/24 10:26 04/13/24 10:26 Labs: Lab Results 04/13/24 04/13/24 Range/Units 10:26 13:44 WBC 10.5 (4.8-10.8) X10*3/uL RBC 2.27 L D (4.60-5.80) X10*6/uL Hgb 8.1 L D (14.0-18.0) g/dl Hct 25.8 L D (42.0-52.0) % MCV 113.7 H (80.0-98.0) fL MCH 35.7 H (27.0-33.0) pg MCHC 31.4 (31.0-36.0) g/dl RDW 16.2 H (11.0-16.0) % Plt Count 113 L (160-400) X10*3/uL MPV 9.5 (9.4-12.4) fL Immature Gran % (Auto) 0.9 H (0.0-0.4) % Neut % (Auto) 83.9 H (45-73) % Lymph % (Auto) 7.9 L (20-40) % [place] % (Auto) 6.1 (2-11) % Eos % (Auto) 0.9 (0-4) % Baso % (Auto) 0.3 (0-2) % Lymph # (Auto) 0.8 L (1.2-4.9) X10*3/uL [place] # (Auto) 0.6 (0.1-1.2) X10*3/uL Eos # (Auto) 0.1 (0.0-0.4) X10*3/uL Baso # (Auto) 0.0 (0.0-0.2) X10*3/uL Abs Immat Gran (auto) 0.10 H (0.00-0.03) X10*3/uL Absolute Neuts (auto) 8.8 H (2.0-8.3) x10*3/uL Absolute Nucleated RBC 0.000 (0.0-0.012) X10*3/uL Nucleated RBC % (auto) 0.0 (0.0-0.2) /100WBC PT 14.4 H (10.9-12.4) SEC INR 1.2 H (0.9-1.1) APTT 34.2 (26.0-36.8) SEC Sodium 143 (135-145) mmol/L Potassium 4.6 (3.3-5.1) mmol/L Chloride 107 (96-108) mmol/L Carbon Dioxide 24 (22-29) mmol/L Anion Gap 17 (12-20) BUN 65 H (9-16) mg/dL Creatinine 9.20 H* (0.5-1.4) mg/dL Estim Creat Clear Calc 7.7 Estimated GFR 6 Random Glucose 113 (60-115) mg/dL Calcium 7.3 L D (8.4-10.2) mg/dL Total Bilirubin 1.0 (0.0-1.0) mg/dL AST 17 (5-37) U/L ALT 8 (0-40) U/L Alkaline Phosphatase 110 (39-117) U/L Troponin I High Sens 45.0 H (<3.5-35.0) ng/L B-Natriuretic Peptide 516 H (<100) pg/mL Total Protein 5.8 L (6.5-8.0) g/dL Albumin 3.2 L (3.5-5.0) g/dL Stool Occult Blood NEGATIVE (NEGATIVE) Influenza Type A (PCR) NEGATIVE (Negative) Influenza Type B (PCR) NEGATIVE (Negative) RSV RNA Qual (PCR) NEGATIVE (Negative) SARS-CoV-2 RNA (RT-PCR) NEGATIVE (Negative) Independent Interpretation I performed an independent interpretation of an: Plain X-Ray and CT Scan Radiology Impression Discussion of test interpretation with radiology: I have reviewed the radiologist's reading. Radiologist Impression: Soft tissue contusion/hematoma right lower back/gluteal fat plane. No acute fracture. No hematoma, retroperitoneum. No hemoperitoneum. Coronary artery disease and atherosclerosis disease. Medical renal disease. Bilateral renal cysts. Lipid rich adenoma, bilaterally. Fat-containing periumbilical and inguinal hernias.. Chest x-ray: Poor inspiration/low volume. No gross consolidation, pleural effusion or pneumothorax. Cardiomediastinal silhouette is normal in size. Pulmonary reticular pattern. Multilevel spondylosis and dextroconvex curvature of the axial skeleton. XR/XR chest 2V IMPRESSION: No acute airspace disease. Consider chronic interstitial lung disease. Mild superimposed interstitial lung edema cannot be excluded. Critical Care Time Critical Care Time Critical Care Time: Yes Total Critical Care Time: 60 Attestation: I have personally provided critical care time. Time includes review of lab data, radiology results, discussion with consultants, and monitoring for potential decompensation. Intervention performed as documented. Discharge Plan Discharge Clinical Impression: Acute exacerbation of CHF (congestive heart failure), Chronic renal failure Patient Disposition: Admitted As Inpatient Prescriptions: No Action amiodarone 200 mg tablet 100 mg PO DAILY 90 Days Qty: 45 3RF atorvastatin 20 mg tablet 20 mg PO BEDTIME torsemide 20 mg tablet 40 mg PO SUTUTHSA Rx Instructions: non dialysis days, sun, haider, [place], sat. sevelamer HCl 800 mg tablet 1,600 mg PO TID midodrine 10 mg tablet 10 mg PO MOWEFR Rx Instructions: prior to dialysis bupropion HCl [Wellbutrin XL] 300 mg tablet extended release 24 hr 300 mg PO DAILY levothyroxine 75 mcg capsule 75 mcg PO DAILY@0600 levofloxacin 250 mg Tablet 250 mg PO Q24H Qty: 5 0RF Eliquis 2.5 mg tablet 2.5 mg PO BID glucosamine-chondroitin [Osteo Bi-Flex] 250-200 mg tablet 1 tab PO TIDWM Rx Instructions: give after food/meal melatonin 5 mg capsule 5 mg PO BEDTIME glipizide 2.5 mg tablet extended release 24hr 2.5 mg PO DAILY Qty: 90 3RF clotrimazole-betamethasone 1-0.05 % cream 1 appl topical BID 14 Days Qty: 45 3RF Print Language: Thai
--- NOTE | 2024-04-13 13:32 | PC.NURSE ---
pt seen by ED provider/aware of plan of care moving forward. 2:1 assist needed in attempts to get pt out of the bed. pt extremely unsteady/reports dizziness/sob w/ position change. pt's SPO2 noted to be 98% at rest and then noted to desat to 91% on RA during position change. pt presents w/ an extremely unsteady gait. pt assisted back into bed/repositioned. pt positioned upright to promote patent airway. pt waiting to go to CT at this time. bedside for support. plan of care ongoing. call cottrell placed within reach.
--- NOTE | 2024-04-13 13:39 | PC.NURSE ---
rectal exam performed by MD Kieran seals obtained/sent to lab.
[2024-04-13 13:52] LABS: OBS Int Ctl Valid YES; OBS1 NEGATIVE (NEGATIVE)
[2024-04-13] MEDS: Furosemide 20 MG/2 ML VIAL IVPUSH (16:51)
--- NOTE | 2024-04-13 16:53 | P.HPHOSP_ITS ---
History of Present Illness Date of Service: 04/13/24 Chief Complaint: sob 78M PMH ESRD, paifb, hld, history of dm, - now appears resolved, orthostatic hypotension, hypothyroid presented with sob. Patient states he has had several days of shortness of breath on minimal exertion with nonproductive cough. Denies any fevers or chills or chest pain. Shortness breath significantly worse on day of presentation so he came to the hospital. Of note patient has been also unsteady over the last few weeks and has had multiple falls including 1 day prior to presentation where he fell on his behind. 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) ELIF (obstructive sleep apnea) ESRD (end stage renal disease) NSVT (nonsustained ventricular tachycardia) HLD (hyperlipidemia) HTN (hypertension) Afib Congestive heart disease Dialysis complication Kidney failure Low blood pressure DM type 2 (diabetes mellitus, type 2) Gallbladder calculus Family History Maternal Grandmother Pancreatic cancer Mother Diabetes type 2, controlled Surgical History Hx of surgical procedure History of surgery History of umbilical hernia repair History of tonsillectomy and adenoidectomy Social History Household Members: Spouse Housing: House Do you presently have visiting nurse or other home services: No Alcohol intake: former Comment: MS LOIS, COVID+ Patient Tobacco Use Status: Former Tobacco user Tobacco use type: Cigarette Smoked in Last 30 Days: No e-Cigarette/Vaping Use: Never Used Second Hand Smoke Exposure: No Use of substances other than those prescribed or required for medical reasons: No Have you been hit, kicked, punched, or otherwise hurt by someone within the past year? If so, by whom?: No Do you feel safe in your current relationship?: Yes Is there a partner from a previous relationship who is making you feel unsafe now?: No Are you made to feel afraid or neglected: No Advance Directives: Yes Advance Directives on File: Yes Advance Directives Date on File: 02/14/24 Do you have a plan to hurt others: No Plan Recently lost weight without trying: No Nutrition Risks: No Nutritional Risk Poor oral hygiene: No service: Yes Current occupational status: retired Cognitive needs: No Hearing needs: No Vision needs: Yes Meds Allergies Allergy/AdvReac Type Severity Reaction Status Date / Time oxycodone AdvReac Gastrointestinal Verified 04/13/24 10:16 Upset Active Medications: Current Medications Acetaminophen (Acetaminophen 325 Mg Tablet) 650 mg PO Q6H PRN PRN Reason: Pain, Mild 1-3,fever,headache Albuterol/Ipratropium (Albuterol/Iprat 2.5/0.5mg 3 Ml Ampul.Neb) 3 ml INHALE RQ4H WHILE AWAKE PRN PRN Reason: sob Azithromycin (Azithromycin 500 Mg Tablet) 500 mg PO Q24H [place] Calcium Carbonate (Calcium Carbonate 750 Mg Tab.Chew) 750 mg PO Q4H PRN PRN Reason: Heartburn Furosemide (Furosemide 40 Mg/4 Ml Vial) 40 mg IVPUSH BID@0900,1800 [place]; Protocol Magnesium Hydroxide (Milk Of Magnesia 30 Ml Oral.Susp) 30 ml PO DAILY PRN PRN Reason: Constipation Melatonin (Melatonin 3 Mg Tablet) 6 mg PO BEDTIME PRN PRN Reason: Insomnia Prednisone (Prednisone 20 Mg Tablet) 40 mg PO DAILY [place] Sodium Chloride (0.9 % Sodium Chloride Flush 3 Ml Syringe) 3 ml IVFLUSH QSHIFT [facility] Home Medications ?Medication ?Instructions ?Recorded ?Confirmed ?Last Taken ?Type apixaban 2.5 mg tablet (Eliquis) 2.5 mg PO BID 11/07/22 04/13/24 04/12/24 History glucosamine-chondroitin 250 mg-200 1 tab PO TIDWM 11/07/22 04/13/24 04/12/24 History mg tablet (Osteo Bi-Flex) melatonin 5 mg capsule 5 mg PO BEDTIME PRN Sleep 11/07/22 04/13/24 04/12/24 History atorvastatin 20 mg tablet 20 mg PO BEDTIME 01/03/24 04/13/24 04/12/24 History torsemide 20 mg tablet 40 mg PO SUTUTHSA 01/03/24 04/13/24 04/12/24 History midodrine 10 mg tablet 10 mg PO MOWEFR 01/05/24 04/13/24 04/10/24 History bupropion HCl 300 mg 24 hr tablet, 300 mg PO DAILY 02/14/24 04/13/24 04/12/24 History extended release (Wellbutrin XL) levothyroxine 75 mcg capsule 75 mcg PO DAILY@0600 02/14/24 04/13/24 04/12/24 History acetaminophen 500 mg tablet 500 mg PO DAILY PRN Pain 04/13/24 04/13/24 Unknown History Physical Exam 2 Vital Signs and Narrative: Vital Signs: Last Vital Signs Temp 98.0 F 04/13/24 16:16 Pulse 68 04/13/24 16:16 Resp 16 04/13/24 16:16 BP 127/54 L 04/13/24 16:51 Pulse Ox 88 L 04/13/24 16:46 O2 Del Method Room Air 04/13/24 16:46 BMI result Body Mass Index 34.7 General: AO X 3, no acute distress Resp: Rhonchi and wheezing bilateral, no accessory muscles used CVS: S1,S2,RRR GI: soft, non tender, non distended Neuro: motor grossly intact, alert, resting high-frequency tremor Psych: appropriate affect, appropriate insight Results Labs 04/13/24 10:26 04/13/24 10:26 Labs: Laboratory Results - last 24 hr 04/13/24 04/13/24 10:26 13:44 MCV 113.7 H MCH 35.7 H MCHC 31.4 RDW 16.2 H Plt Count 113 L MPV 9.5 Immature Gran % (Auto) 0.9 H Neut % (Auto) 83.9 H Lymph % (Auto) 7.9 L [place] % (Auto) 6.1 Eos % (Auto) 0.9 Baso % (Auto) 0.3 Lymph # (Auto) 0.8 L [place] # (Auto) 0.6 Eos # (Auto) 0.1 Baso # (Auto) 0.0 Abs Immat Gran (auto) 0.10 H Absolute Neuts (auto) 8.8 H Absolute Nucleated RBC 0.000 Nucleated RBC % (auto) 0.0 PT 14.4 H INR 1.2 H APTT 34.2 Anion Gap 17 Estim Creat Clear Calc 7.7 Estimated GFR 6 Random Glucose 113 Calcium 7.3 L D Total Bilirubin 1.0 AST 17 ALT 8 Alkaline Phosphatase 110 Troponin I High Sens 45.0 H B-Natriuretic Peptide 516 H Total Protein 5.8 L Albumin 3.2 L Stool Occult Blood NEGATIVE Influenza Type A (PCR) NEGATIVE Influenza Type B (PCR) NEGATIVE RSV RNA Qual (PCR) NEGATIVE SARS-CoV-2 RNA (RT-PCR) NEGATIVE Imaging Radiologist's Impressions: Impressions Chest X-Ray 04/13/24 10:30 IMPRESSION: No acute airspace disease. Consider chronic interstitial lung disease. Mild superimposed interstitial lung edema cannot be excluded. Electronically signed by: Ryan Olmedo MD 04/13/2024 10:43 AM EST RP Abdomen/Pelvis CT 04/13/24 13:56 IMPRESSION: Soft tissue contusion/hematoma right lower back/gluteal fat plane. No acute fracture. No hematoma, retroperitoneum. No hemoperitoneum. Coronary artery disease and atherosclerosis disease. Medical renal disease. Bilateral renal cysts. Lipid rich adenoma, bilaterally. Fat-containing periumbilical and inguinal hernias.. Fleischner guidelines were followed. Electronically signed by: Ryan Olmedo MD 04/13/2024 03:30 PM EST RP Assessment and Plan (1) Acute exacerbation of CHF (congestive heart failure): Status: Acute Plan 78M PMH ESRD, paifb, hld, history of dm, - now appears resolved, orthostatic hypotension, hypothyroid presented with sob Shortness of breath Multifactorial Acute bronchitis, acute on chronic diastolic CHF inpatient with end-stage renal disease, ?Amio toxicity IV Lasix, dialysis, azithromycin and prednisone, will hold amiodarone for now, follow-up CT chest Frequent fall PT eval, suspect tremors playing a role-neuro eval Paroxysmal AFib Will hold amiodarone for now Continue Eliquis History of diabetes A1c now below 5 glipized dced Orthostatic hypotension Continue midodrine Hypothyroid Continue levothyroxine DVT prophylaxis on Eliquis Full Code Patient with significant wheezing and shortness of breath requiring hemodialysis for fluid overload therefore expected require at least 2 midnights inpatient Quality Stroke Does the patient have a stroke diagnosis?: No VTE Prior VTE?: No VTE Risk Level:: Medical - moderate - high VTE Device Contraindication: Treatment Not Indicated VTE Drug Contraindication: N/A - Med Ordered
[2024-04-13] MEDS: predniSONE 20 MG TABLET 40 MG PO (17:07)
[2024-04-13] MEDS: Azithromycin 500 MG TABLET PO (17:07)
--- NOTE | 2024-04-13 17:07 | PC.NURSE ---
medication administered per provider order. male purewick applied. effectiveness pending. pt otherwise continues to rest in no apparent distress. denies pain. no sob/wob noted. respirations even/unlabored. pt pending bed assignment at this time. plan of care ongoing. call cottrell placed within reach.
--- NOTE | 2024-04-13 17:17 | PHA.MEDREC ---
Addendum entered by Leola Chiang [facility] 04/13/24 17:36: reviewed by [facility]. Original Note: Pharmacy Consult ? Medication Reconciliation Pharmacy has completed the medication reconciliation. Spoke with patient and we started confirming his medications which went well stating the names but how he takes them he was not able to confirm that and stated his knows more about his medications. The patient was able to confirm he is still taking the Eliquis 2.5mg tab 1 BID and has a bit of an over stock at home and stated he has not taken any medications today but took everything yesterday. I called and spoke to the patients Melinda and she was able to confirm the patients medications. The confirmed he finished the Levofloxacin 250mg regimen a few months ago. She confirmed the patient is not taking the Clotrimazole-Betamethasone cream anymore and has not needed it in a while . She also confirmed the patients dialysis Dr stopped the patients Sevelamer 800mg tab about a month ago. She also confirmed her has not taken his medications since yesterday.
--- NOTE | 2024-04-13 18:02 | PC.NURSE ---
pt still unable to urinate s/p lasix administration - bladder scan obtained displaying 102ml. no action needed at this time. will reassess if still no urine output shortly.
[2024-04-13] MEDS: Midodrine HCl 10 MG TABLET PO (19:48)
--- NOTE | 2024-04-13 20:02 | PC.NURSE ---
this rn assumed care of pt, pt a&ox4, respirations even and unlabored. pt sitting up and eating dinner at this time.
[2024-04-13] MEDS: Apixaban 2.5 MG TABLET PO (21:22)
[2024-04-13] MEDS: Atorvastatin Calcium 20 MG TABLET PO (21:22)
--- NOTE | 2024-04-13 21:26 | PC.NURSE ---
pt reports at this time he is unable to void, bladder scan=72. provider aware. pt medicated per mar, tolerated well whole with water.
[2024-04-14] VITALS (9 sets, daily range): BP systolic 113–150; BP diastolic 52–72; PULSE 70–78; RESP 16–24; TEMP 36–36.9; O2SAT 96–98; BMI 32.7
--- NOTE | 2024-04-14 | ECG_ITS ---
Test Reason : RHYTHYM CHANGE Blood Pressure : */* mmHG Vent. Rate : 77 BPM Atrial Rate : * BPM P-R Int : * ms QRS Dur : 110 ms QT Int : 454 ms P-R-T Axes : * -29 67 degrees QTcB Int : 513 ms Possibly sinus rhythm Anterolateral infarct (cited on or before 03-JAN-2024) Prolonged QT Abnormal ECG When compared with ECG of 13-APR-2024 10:47, Previous ECG has undetermined rhythm, needs review T wave amplitude has increased in Anterior leads Referred By: Valdemar Valles Electronically Signed By: ADOLFO LEMOS
[2024-04-14] MEDS: 0.9 % Sodium Chloride Flush 3 ML SYRINGE IVFLUSH ×3 (01:12→20:44)
--- NOTE | 2024-04-14 04:00 | PC.NURSE ---
at this time, pt reporting sudden onset of shortness of breath, pt noted to have changes on tele at this time, awake. chest xray, labs, ekg and breathing treatment administered. pt noted to have bilateral inspiratory and expiratory wheezing at this time.
[2024-04-14 04:10] LABS: Hematocrit 25.8 % (42.0-52.0); Hemoglobin 7.9 g/dl (14.0-18.0); Mean Corpuscular HGB Conc 30.6 g/dl (31.0-36.0); Mean Corpuscular Hemoglobin 34.8 pg (27.0-33.0); Platelet Count 110 X10*3/uL (160-400); Red Blood Count 2.27 X10*6/uL (4.60-5.80); White Blood Count 8.8 X10*3/uL (4.8-10.8)
[2024-04-14 04:11] LABS: Mean Corpuscular Volume 113.7 fL (80.0-98.0)
[2024-04-14] MEDS: Albuterol/Iprat 2.5/0.5MG 3 ML AMPUL.NEB INHALE (04:24)
[2024-04-14 04:30] LABS: B Type Natriuretic Peptide 956 pg/mL (<100)
[2024-04-14 04:32] LABS: Alanine Aminotransferase 6 U/L (0-40); Albumin Level 3.3 g/dL (3.5-5.0); Alkaline Phosphatase 115 U/L (39-117); Anion Gap 21 (12-20); Aspartate Amino Transferase 17 U/L (5-37); Bilirubin Total 0.9 mg/dL (0.0-1.0); Blood Urea Nitrogen 81 mg/dL (9-16); Calcium 7.4 mg/dL (8.4-10.2); Carbon Dioxide 21 mmol/L (22-29); Chloride 105 mmol/L (96-108); Creatinine Clr Calc Pharmacy 6.8; Estimated Glomerular Filt Rate 5; Glucose Random 205 mg/dL (60-115); Magnesium 2.6 mg/dL (1.6-2.6); Potassium 5.4 mmol/L (3.3-5.1); Sodium 142 mmol/L (135-145)
[2024-04-14 04:33] LABS: Troponin-I High Sensitivity 46.6 ng/L (<3.5-35.0)
[2024-04-14] MEDS: Levothyroxine Sodium 75 MCG TABLET PO (05:18)
[2024-04-14] MEDS: Sodium Zirconium Cyclosilicate 10 GM POWD.PACK PO (05:18)
--- NOTE | 2024-04-14 07:00 | CA_ITS ---
Transthoracic Echocardiogram Patient (Last, First, Middle): Jacob Ruth, Gender: Male Date of : 1945 Age: 78 Procedure Date: 04/14/2024 Procedure Type: Transthoracic Echocardiogram Location: S3E Height: 172.72 cm Weight: 97.07 kg BSA: 2.10 m2 Heart Rate: bpm BP: 134 / 72 mmHg Lidder: Referring MD: Kaveh Bettencourt MD Symptoms: chf Study Quality: Adequate w Contrast ECG Rhythm: Sinus Conclusions: - The left ventricular systolic function is low normal. The visually estimated ejection fraction is between 50-55%. - The left atrium is severely dilated. - No obvious valvular pathology seen on this study. Findings Procedure Information Contrast agent, definity, is being given per protocol without apparent complications. Left Ventricle Normal left ventricular cavity size. There is normal left ventricular wall thickness. The left ventricular systolic function is low normal. The visually estimated ejection fraction is between 50-55%. There is no evidence of regional wall motion abnormalities. Diastolic function is indeterminate on the basis of available data. Right Ventricle Moderately increased right ventricular cavity size. There is normal right ventricular systolic function. Atria The left atrium is severely dilated. The right atrium is mildly dilated. Aortic Valve The aortic valve was not well visualized. There is no aortic valve stenosis. There is no aortic valve regurgitation. Mitral Valve There is mild mitral annular calcification. There is trace mitral valve regurgitation. There is no mitral valve stenosis. Pulmonic Valve The pulmonic valve is likely normal. Tricuspid Valve There is trace tricuspid valve regurgitation. There is no evidence of pulmonary hypertension. Great Vessels The asc aorta is normal in size. Venous The inferior vena cava was not well visualized. Pericardium/Pleural There is no evidence of pericardial effusion. Prior Study Comparison No prior study available for comparison. Recommendations, Care & Conclusions No obvious valvular pathology seen on this study. Measurements 2D Linear Measurements IVSd: 0.98 0.6-0.9/0.6-1.0 cm LVIDd: 5.18 3.9-5.3/4.2-5.9 cm LVIDd Index: 2.47 2.4-3.2/2.2-3.1 cm/m2 LVIDs: 3.79 2.0-3.6 cm LVPWd: 1.06 0.7-1.1 cm Ao Root: 3.50 2.1-3.5 cm LA Diam: 6.20 2.7-3.8/3.0-4.0 cm LAIDs Index: 2.95 1.5-2.3 cm/m2 LV Mass: 246.38 67-162/88-224 g LV Mass Index: 117.33 43-95/49-115 g/m2 LVOT Diam: 2.20 3.0+(-)1.3 cm 2D Systolic Function EF 4C: 51.90 >55% EF 2C: 55.60 >55% EF BiP: 54.50 >55% Mitral Valve MV VTI: 0.33 MV Pk Bishnu: 1.23 MV Mn Bishnu: 0.72 MV Pk Grad: 6.00 MV Mn Grad: 2.00 MV Pk E: 1.05 MV PK A: 0.57 MV Decel Time: 159.00 E/A: 1.80 E'Lateral: 13.60 E'Medial: 8.05 E/E' Med: 13.00 E/E' Lat: 7.70 PHT: 47.00 MVA PHT: 4.68 MVA Continuity: 2.91 Decel Sullivan: 6.60 Aortic Valve AoV Pk Bishnu: 1.89 AoV Mn Bishnu: 1.28 AoV VTI: 0.45 AoV Pk Grad: 14.00 Aov Mn Grad: 8.00 JOSR Cont.VTI: 2.11 LVOT LVOT Pk Bishnu: 1.22 LVOT Mn Bishnu: 0.75 LVOT VTI: 0.25 LVOT Pk Grad: 6.00 LVOT Mn Grad: 3.00 LVOT Diam: 2.20 LVOT Area: 3.80 Diastolic Function MV Pk E: 1.05 MV Pk A: 0.57 E/A: 1.80 E'Medial: 8.05 E/E' Med: 13.00 E' Laterial: 13.60 E/E' Lat: 7.70 Right Ventricle TAPSE (mm): 32.00 TVS' Bishnu: 14.00 Tricuspid Valve TR Pk Bishnu: 2.32 TR Pk Grad: 22.00 RA Press: 3.00 RVSP: 25.00 Great Vessels Aorta Ao Root-2D: 3.50 2.0-3.7 cm Ao Asc: 3.80 2.1-3.4 cm Pulmonary Valve PV Pk Bishnu: 1.21 Peak PV Grad: 6.00 Updated in Other Vendor System with Status of Final Eugene Santana MD electronically signed on 04/14/2024 5:28:09 PM with status of Final
--- NOTE | 2024-04-14 07:07 | PC.NURSE ---
called caddy packer stated she is not ready for patient so ok to go to room and she will send transport for him in a while.
--- NOTE | 2024-04-14 08:04 | HO.PM.IMPN ---
Subjective Subjective Date of Service: 04/14/24 Interval History: feels a bit better Physical Exam Vital Signs: Vital Signs: Last Vital Signs Temp 97.2 F 04/14/24 07:55 Pulse 72 04/14/24 07:55 Resp 18 04/14/24 07:55 BP 134/72 04/14/24 07:55 Pulse Ox 97 04/14/24 07:55 O2 Del Method Room Air 04/14/24 07:55 BMI result Body Mass Index 32.7 General: AO X 3, no acute distress Resp: rhonchi and wheezing bilateral, no accessory muscles used CVS: S1,S2,RRR GI: soft, non tender, non distended Neuro: motor grossly intact, alert Psych: appropriate affect, appropriate insight Objective Data Active Medications Acetaminophen (Acetaminophen 325 Mg Tablet) 650 mg PO Q6H PRN PRN Reason: Pain, Mild 1-3,fever,headache Albuterol/Ipratropium (Albuterol/Iprat 2.5/0.5mg 3 Ml Ampul.Neb) 3 ml INHALE RQ4H WHILE AWAKE PRN PRN Reason: sob Last Admin: 04/14/24 04:24 Dose: 3 ml Documented By: EDNA Apixaban (Apixaban 2.5 Mg Tablet) 2.5 mg PO BID [facility] Last Admin: 04/13/24 21:22 Dose: 2.5 mg Documented By: LYDIA Atorvastatin Calcium (Atorvastatin Calcium 20 Mg Tablet) 20 mg PO BEDTIME [facility] Last Admin: 04/13/24 21:22 Dose: 20 mg Documented By: LYDIA Azithromycin (Azithromycin 500 Mg Tablet) 500 mg PO Q24H [facility] Last Admin: 04/13/24 17:07 Dose: 500 mg Documented By: PAULINA Bupropion HCl (Bupropion Hcl Xl 300 Mg Tab.Er.24h) 300 mg PO DAILY [facility] Calcium Carbonate (Calcium Carbonate 750 Mg Tab.Chew) 750 mg PO Q4H PRN PRN Reason: Heartburn Furosemide (Furosemide 40 Mg/4 Ml Vial) 40 mg IVPUSH BID@0900,1800 [facility]; Protocol Last Admin: 04/13/24 17:05 Dose: Not Given Documented By: PAULINA Non-Admin Reason: Previously Administered Levothyroxine Sodium (Levothyroxine Sodium 75 Mcg Tablet) 75 mcg PO DAILY@0600 [facility] Last Admin: 04/14/24 05:18 Dose: 75 mcg Documented By: LYDIA Magnesium Hydroxide (Milk Of Magnesia 30 Ml Oral.Susp) 30 ml PO DAILY PRN PRN Reason: Constipation Melatonin (Melatonin 3 Mg Tablet) 6 mg PO BEDTIME PRN PRN Reason: Insomnia Midodrine (Midodrine Hcl 10 Mg Tablet) 10 mg PO MOWEFR [facility] Last Admin: 04/13/24 19:48 Dose: 10 mg Documented By: ABETOLC Prednisone (Prednisone 20 Mg Tablet) 40 mg PO DAILY [facility] Last Admin: 04/13/24 17:07 Dose: 40 mg Documented By: PAULINA Sodium Chloride (0.9 % Sodium Chloride Flush 3 Ml Syringe) 3 ml IVFLUSH QSHIFT [facility] Last Admin: 04/14/24 01:12 Dose: 3 ml Documented By: LYDIA Labs 04/14/24 04:05 04/14/24 04:05 Labs: Laboratory Results - last 24 hr 04/13/24 04/13/24 04/14/24 10:26 13:44 04:05 MCV 113.7 H 113.7 H MCH 35.7 H 34.8 H MCHC 31.4 30.6 L RDW 16.2 H 16.0 Plt Count 113 L 110 L MPV 9.5 9.0 L Immature Gran % (Auto) 0.9 H Neut % (Auto) 83.9 H Lymph % (Auto) 7.9 L Day % (Auto) 6.1 Eos % (Auto) 0.9 Baso % (Auto) 0.3 Lymph # (Auto) 0.8 L Day # (Auto) 0.6 Eos # (Auto) 0.1 Baso # (Auto) 0.0 Abs Immat Gran (auto) 0.10 H Absolute Neuts (auto) 8.8 H Absolute Nucleated RBC 0.000 0.000 Nucleated RBC % (auto) 0.0 0.0 PT 14.4 H INR 1.2 H APTT 34.2 Anion Gap 17 21 H Estim Creat Clear Calc 7.7 6.8 Estimated GFR 6 5 Random Glucose 113 205 H Calcium 7.3 L D 7.4 L Magnesium 2.6 Total Bilirubin 1.0 0.9 AST 17 17 ALT 8 6 Alkaline Phosphatase 110 115 Troponin I High Sens 45.0 H 46.6 H B-Natriuretic Peptide 516 H 956 H Total Protein 5.8 L 6.0 L Albumin 3.2 L 3.3 L Stool Occult Blood NEGATIVE Influenza Type A (PCR) NEGATIVE Influenza Type B (PCR) NEGATIVE RSV RNA Qual (PCR) NEGATIVE SARS-CoV-2 RNA (RT-PCR) NEGATIVE Assessment and Plan (1) Congestive heart disease: Status: Acute Plan 78M PMH ESRD, paifb, hld, history of dm, - now appears resolved, orthostatic hypotension, hypothyroid presented with sob Shortness of breath Multifactorial Acute bronchitis, acute on chronic diastolic CHF inpatient with end-stage renal disease, IV Lasix, dialysis, azithromycin and prednisone ct chest not c/w amio toxicity, will restart Frequent fall PT eval, suspect tremors playing a role-neuro eval Paroxysmal AFib amio, eliquis History of diabetes A1c now below 5 glipized dced Orthostatic hypotension Continue midodrine Hypothyroid Continue levothyroxine DVT prophylaxis on Eliquis Full Code reason for continued hospitalization:still with wheezing, rhonchi Quality Stroke Does the patient have a stroke diagnosis?: No VTE Prior VTE?: No VTE Risk Level:: Medical - moderate - high VTE Device Contraindication: Treatment Not Indicated VTE Drug Contraindication: N/A - Med Ordered
--- NOTE | 2024-04-14 08:50 | PC.NURSE ---
Pt to HD
--- NOTE | 2024-04-14 12:09 | PC.NURSE ---
updated pts Pratibha Ruth on pts status via telephone
--- NOTE | 2024-04-14 13:21 | PM.CNNEP ---
History of Present Illness Reason for Consult Consult date: 04/14/24 Chief Complaint Chief complaint: sob, falls History of Present Illness Narrative: 78 with ESRD, labile blood pressure who gets HD on MWF presented to hospital with with sob. Patient states he has had several days of shortness of breath on minimal exertion with nonproductive cough. Denies any fevers or chills or chest pain. Shortness breath significantly worse on day of presentation so he came to the hospital. 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) ELIF (obstructive sleep apnea) ESRD (end stage renal disease) NSVT (nonsustained ventricular tachycardia) HLD (hyperlipidemia) HTN (hypertension) Afib Congestive heart disease Dialysis complication Kidney failure Low blood pressure DM type 2 (diabetes mellitus, type 2) Gallbladder calculus Family History Family History Maternal Grandmother Pancreatic cancer Mother Diabetes type 2, controlled Surgical History Surgical History Hx of surgical procedure History of surgery History of umbilical hernia repair History of tonsillectomy and adenoidectomy Social History Social History Household Members: Spouse Housing: House Do you presently have visiting nurse or other home services: No Alcohol intake: former Comment: MS LOIS, COVID+ Patient Tobacco Use Status: Former Tobacco user Tobacco use type: Cigarette e-Cigarette/Vaping Use: Never Used Second Hand Smoke Exposure: No Advance Directives Date on File: 02/14/24 service: Yes Current occupational status: retired Cognitive needs: No Hearing needs: No Vision needs: Yes Meds Allergies Allergy/AdvReac Type Severity Reaction Status Date / Time oxycodone AdvReac Gastrointestinal Verified 04/13/24 10:16 Upset Active Medications: Current Medications Acetaminophen (Acetaminophen 325 Mg Tablet) 650 mg PO Q6H PRN PRN Reason: Pain, Mild 1-3,fever,headache Albuterol/Ipratropium (Albuterol/Iprat 2.5/0.5mg 3 Ml Ampul.Neb) 3 ml INHALE RQ4H WHILE AWAKE PRN PRN Reason: sob Last Admin: 04/14/24 04:24 Dose: 3 ml Amiodarone HCl (Amiodarone Hcl 200 Mg Tablet) 100 mg PO DAILY [facility] Apixaban (Apixaban 2.5 Mg Tablet) 2.5 mg PO BID [facility] Last Admin: 04/13/24 21:22 Dose: 2.5 mg Atorvastatin Calcium (Atorvastatin Calcium 20 Mg Tablet) 20 mg PO BEDTIME [facility] Last Admin: 04/13/24 21:22 Dose: 20 mg Azithromycin (Azithromycin 500 Mg Tablet) 500 mg PO Q24H [facility] Last Admin: 04/13/24 17:07 Dose: 500 mg Bupropion HCl (Bupropion Hcl Xl 300 Mg Tab.Er.24h) 300 mg PO DAILY [facility] Calcium Carbonate (Calcium Carbonate 750 Mg Tab.Chew) 750 mg PO Q4H PRN PRN Reason: Heartburn Furosemide (Furosemide 40 Mg/4 Ml Vial) 40 mg IVPUSH BID@0900,1800 [facility]; Protocol Last Admin: 04/13/24 17:05 Dose: Not Given Levothyroxine Sodium (Levothyroxine Sodium 75 Mcg Tablet) 75 mcg PO DAILY@0600 [facility] Last Admin: 04/14/24 05:18 Dose: 75 mcg Magnesium Hydroxide (Milk Of Magnesia 30 Ml Oral.Susp) 30 ml PO DAILY PRN PRN Reason: Constipation Melatonin (Melatonin 3 Mg Tablet) 6 mg PO BEDTIME PRN PRN Reason: Insomnia Midodrine (Midodrine Hcl 10 Mg Tablet) 10 mg PO MOWEFR [facility] Last Admin: 04/13/24 19:48 Dose: 10 mg Prednisone (Prednisone 20 Mg Tablet) 40 mg PO DAILY [facility] Last Admin: 04/13/24 17:07 Dose: 40 mg Sodium Chloride (0.9 % Sodium Chloride Flush 3 Ml Syringe) 3 ml IVFLUSH QSHIFT [facility] Last Admin: 04/14/24 10:45 Dose: Not Given Home Medications ?Medication ?Instructions ?Recorded ?Confirmed ?Last Taken ?Type apixaban 2.5 mg tablet (Eliquis) 2.5 mg PO BID 08/05/3104/13/24 04/12/24 History glucosamine-chondroitin 250 mg-200 1 tab PO TIDWM 11/07/22 04/13/24 04/12/24 History mg tablet (Osteo Bi-Flex) melatonin 5 mg capsule 5 mg PO BEDTIME PRN Sleep 11/07/22 04/13/24 04/12/24 History atorvastatin 20 mg tablet 20 mg PO BEDTIME 01/03/24 04/13/24 04/12/24 History torsemide 20 mg tablet 40 mg PO SUTUTHSA 01/03/24 04/13/24 04/12/24 History midodrine 10 mg tablet 10 mg PO MOWEFR 01/05/24 04/13/24 04/10/24 History bupropion HCl 300 mg 24 hr tablet, 300 mg PO DAILY 02/14/24 04/13/24 04/12/24 History extended release (Wellbutrin XL) levothyroxine 75 mcg capsule 75 mcg PO DAILY@0600 02/14/24 04/13/24 04/12/24 History acetaminophen 500 mg tablet 500 mg PO DAILY PRN Pain 04/13/24 04/13/24 Unknown History Physical Exam Vital Signs: Last Vital Signs Temp 97.2 F 04/14/24 07:55 Pulse 72 04/14/24 07:55 Resp 18 04/14/24 07:55 BP 134/72 04/14/24 07:55 Pulse Ox 97 04/14/24 07:55 O2 Del Method Room Air 04/14/24 07:55 BMI result Body Mass Index 32.7 Const General: comfortable and no acute distress Orientation/consciousness: patient oriented x3 HEENT Head: Yes normocephalic Mouth: Normal oral and palatal mucosa present Eyes EOM: EOMs intact bilaterally Neck Neck: Yes supple Resp Auscultation: diminished lung sounds Cardio Jugular venous distension: no JVD Rate: regular rate GI Palpation (GI): Soft to palpation Auscultation: normal bowel sounds General: Yes no CVA tenderness Back/Spine/Pelvis Back: no CVA tenderness Skin General skin exam: no rashes or lesions noted Neuro General: patient oriented x3 and moves all extremities Results Lab Results 04/14/24 04:05 04/14/24 04:05 Lab results: Chemistry 04/13/24 04/14/24 10:26 04:05 Sodium 143 142 Potassium 4.6 5.4 H Carbon Dioxide 24 21 L BUN 65 H 81 H Creatinine 9.20 H* 10.42 H* Calcium 7.3 L D 7.4 L Hematology 04/13/24 04/14/24 10:26 04:05 WBC 10.5 8.8 Hgb 8.1 L D 7.9 L Plt Count 113 L 110 L Assessment and Plan (1) End stage renal disease on dialysis: Status: Acute Plan ESRD on HD- Usually gets HD on MWF Shall dialyze today and will get him back to schedule tomorrow Renal Diet; Phos binders with meals Shall reduce dry weight;C/W rest of current management Procedures Date of Service Date of Service: 04/14/24
[2024-04-14] MEDS: Apixaban 2.5 MG TABLET PO ×2 (13:36→20:44)
[2024-04-14] MEDS: predniSONE 20 MG TABLET 40 MG PO (13:36)
[2024-04-14] MEDS: Amiodarone HCL 200 MG TABLET 100 MG PO (13:36)
[2024-04-14] MEDS: buPROPion HCl XL 300 MG TAB.ER.24H PO (13:36)
--- NOTE | 2024-04-14 13:40 | PC.NURSE ---
Pt returned from HD
--- NOTE | 2024-04-14 15:41 | MHC.CM.PN ---
pt lives with goes to dialysis mon sat and sat at [facility] there are no home services dc plan home pt has own ride
[2024-04-14] MEDS: Furosemide 40 MG/4 ML VIAL IVPUSH (17:14)
[2024-04-14] MEDS: Azithromycin 500 MG TABLET PO (17:14)
--- NOTE | 2024-04-14 18:10 | P.CNNE_ITS ---
History of Present Illness Data of Consult Service Date: 04/14/24 Primary Care Provider: Na White MD [facility] Reason for consult: Multiple falls This is a 78-year-old man with a history of paroxysmal atrial fibrillation, hyperlipidemia, diabetes mellitus, ESRD, orthostatic hypotension, hypothyroidism presented with sob. Patient states he has had several days of shortness of breath on minimal exertion with nonproductive cough. Denies any fevers or chills or chest pain. Shortness breath significantly worse on day of presentation so he came to the hospital. Of note patient has been also unsteady over the last 2 years and has been using a walker for over a year. He's had a couple of recent falls both times when he was trying to sit on a chair but did not back up all the way. He landed on his bottom. He says as long as he uses his walker properly. He does not fall. 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) ELIF (obstructive sleep apnea) ESRD (end stage renal disease) NSVT (nonsustained ventricular tachycardia) HLD (hyperlipidemia) HTN (hypertension) Afib Congestive heart disease Dialysis complication Kidney failure Low blood pressure DM type 2 (diabetes mellitus, type 2) Gallbladder calculus Family History Family History Maternal Grandmother Pancreatic cancer Mother Diabetes type 2, controlled Surgical History Surgical History Hx of surgical procedure History of surgery History of umbilical hernia repair History of tonsillectomy and adenoidectomy Social History Social History Household Members: Spouse Housing: House Do you presently have visiting nurse or other home services: No Alcohol intake: former Comment: MS LOIS, COVID+ Patient Tobacco Use Status: Former Tobacco user Tobacco use type: Cigarette e-Cigarette/Vaping Use: Never Used Second Hand Smoke Exposure: No Advance Directives Date on File: 02/14/24 service: No Current occupational status: retired Cognitive needs: No Hearing needs: No Vision needs: Yes Meds Allergies Allergy/AdvReac Type Severity Reaction Status Date / Time oxycodone AdvReac Gastrointestinal Verified 04/13/24 10:16 Upset Active Medications: Current Medications Acetaminophen (Acetaminophen 325 Mg Tablet) 650 mg PO Q6H PRN PRN Reason: Pain, Mild 1-3,fever,headache Albuterol/Ipratropium (Albuterol/Iprat 2.5/0.5mg 3 Ml Ampul.Neb) 3 ml INHALE RQ4H WHILE AWAKE PRN PRN Reason: sob Last Admin: 04/14/24 04:24 Dose: 3 ml Amiodarone HCl (Amiodarone Hcl 200 Mg Tablet) 100 mg PO DAILY [facility] Last Admin: 04/14/24 13:36 Dose: 100 mg Apixaban (Apixaban 2.5 Mg Tablet) 2.5 mg PO BID [facility] Last Admin: 04/14/24 13:36 Dose: 2.5 mg Atorvastatin Calcium (Atorvastatin Calcium 20 Mg Tablet) 20 mg PO BEDTIME [facility] Last Admin: 04/13/24 21:22 Dose: 20 mg Azithromycin (Azithromycin 500 Mg Tablet) 500 mg PO Q24H [facility] Last Admin: 04/14/24 17:14 Dose: 500 mg Bupropion HCl (Bupropion Hcl Xl 300 Mg Tab.Er.24h) 300 mg PO DAILY [facility] Last Admin: 04/14/24 13:36 Dose: 300 mg Calcium Carbonate (Calcium Carbonate 750 Mg Tab.Chew) 750 mg PO Q4H PRN PRN Reason: Heartburn Furosemide (Furosemide 40 Mg/4 Ml Vial) 40 mg IVPUSH BID@0900,1800 [facility]; Protocol Last Admin: 04/14/24 17:14 Dose: 40 mg Levothyroxine Sodium (Levothyroxine Sodium 75 Mcg Tablet) 75 mcg PO DAILY@0600 [facility] Last Admin: 04/14/24 05:18 Dose: 75 mcg Lidocaine HCl (Lidocaine Hcl 1 % Mpf 2 Ml Vial) 0.5 ml SUBCUT MOWEFR@1645 [facility] Magnesium Hydroxide (Milk Of Magnesia 30 Ml Oral.Susp) 30 ml PO DAILY PRN PRN Reason: Constipation Melatonin (Melatonin 3 Mg Tablet) 6 mg PO BEDTIME PRN PRN Reason: Insomnia Midodrine (Midodrine Hcl 10 Mg Tablet) 10 mg PO MOWEFR [facility] Last Admin: 04/13/24 19:48 Dose: 10 mg Prednisone (Prednisone 20 Mg Tablet) 40 mg PO DAILY [facility] Last Admin: 04/14/24 13:36 Dose: 40 mg Sodium Chloride (0.9 % Sodium Chloride Flush 3 Ml Syringe) 3 ml IVFLUSH QSHIFT [facility] Last Admin: 04/14/24 17:14 Dose: 3 ml Home Medications ?Medication ?Instructions ?Recorded ?Confirmed ?Last Taken ?Type apixaban 2.5 mg tablet (Eliquis) 2.5 mg PO BID 11/07/22 04/13/24 04/12/24 History glucosamine-chondroitin 250 mg-200 1 tab PO TIDWM 11/07/22 04/13/24 04/12/24 History mg tablet (Osteo Bi-Flex) melatonin 5 mg capsule 5 mg PO BEDTIME PRN Sleep 11/07/22 04/13/24 04/12/24 History atorvastatin 20 mg tablet 20 mg PO BEDTIME 01/03/24 04/13/24 04/12/24 History torsemide 20 mg tablet 40 mg PO SUTUTHSA 01/03/24 04/13/24 04/12/24 History midodrine 10 mg tablet 10 mg PO MOWEFR 01/05/24 04/13/24 04/10/24 History bupropion HCl 300 mg 24 hr tablet, 300 mg PO DAILY 02/14/24 04/13/24 04/12/24 History extended release (Wellbutrin XL) levothyroxine 75 mcg capsule 75 mcg PO DAILY@0600 02/14/24 04/13/24 04/12/24 History acetaminophen 500 mg tablet 500 mg PO DAILY PRN Pain 04/13/24 04/13/24 Unknown History Physical Exam 2 Vital Signs: Vital Signs: Last Vital Signs Temp 96.8 F 04/14/24 15:35 Pulse 72 04/14/24 15:35 Resp 16 04/14/24 15:35 BP 113/54 L 04/14/24 17:14 Pulse Ox 96 04/14/24 15:35 O2 Del Method Room Air 04/14/24 15:35 BMI result Body Mass Index 32.7 Neuro: Other: He is alert and oriented x3. He has some difficulty talking because he is has shortness of breath from us, congestive heart failure. His speech and language functions are normal. Cognitive functions are intact. He has tremors of his extended upper extremities, which have been going on for a couple of years and interfere with his ability to write and hold a fork. He has to hold a cup with both hands. There is no family history of tremor. There is no rigidity. the reflexes hypoactive. Plantar response are flexor. Results Labs 04/14/24 04:05 04/14/24 04:05 Labs: Short CBC 04/14/24 Range/Units 04:05 WBC 8.8 (4.8-10.8) X10*3/uL Hgb 7.9 L (14.0-18.0) g/dl Hct 25.8 L (42.0-52.0) % Plt Count 110 L (160-400) X10*3/uL BMP 04/14/24 04:05 Sodium 142 Potassium 5.4 H Chloride 105 Carbon Dioxide 21 L BUN 81 H Creatinine 10.42 H* Calcium 7.4 L Liver Function 04/14/24 Range/Units 04:05 Total Bilirubin 0.9 (0.0-1.0) mg/dL AST 17 (5-37) U/L ALT 6 (0-40) U/L Alkaline Phosphatase 115 (39-117) U/L Albumin 3.3 L (3.5-5.0) g/dL Assessment and Plan (1) Essential tremor: Status: Acute Start primidone 50 mg half tablet at bedtime (2) Falls: Status: Acute He needs physical therapy for leg strengthening and proper instructions on how to back up to a chair and not sit down to the feels the back of the chair. Last 2 falls have been accidental while trying to sit down in the chair wasn't in the right place. Procedures Date of Service Date of Service: 04/14/24
[2024-04-14] MEDS: Atorvastatin Calcium 20 MG TABLET PO (20:44)
[2024-04-15 03:31] VITALS: BP 139/66; PULSE 77; RESP 20; TEMP 36.8; O2SAT 97
[2024-04-15] MEDS: Levothyroxine Sodium 75 MCG TABLET PO (05:49)
[2024-04-15 06:19] LABS: Hemoglobin 7.9 g/dl (14.0-18.0); Mean Corpuscular HGB Conc 31.6 g/dl (31.0-36.0); Mean Corpuscular Hemoglobin 35.3 pg (27.0-33.0); Mean Platelet Volume 9.3 fL (9.4-12.4); Platelet Count 145 X10*3/uL (160-400); Red Blood Count 2.24 X10*6/uL (4.60-5.80); Red Cell Distribution Width 15.7 % (11.0-16.0); White Blood Count 9.4 X10*3/uL (4.8-10.8)
[2024-04-15 06:20] LABS: Mean Corpuscular Volume 111.6 fL (80.0-98.0)
[2024-04-15 06:32] LABS: Anion Gap 15 (12-20); Blood Urea Nitrogen 57 mg/dL (9-16); Calcium 7.5 mg/dL (8.4-10.2); Carbon Dioxide 23 mmol/L (22-29); Chloride 103 mmol/L (96-108); Creatinine Clr Calc Pharmacy 9.4; Estimated Glomerular Filt Rate 7; Glucose Random 155 mg/dL (60-115); Potassium 4.3 mmol/L (3.3-5.1); Sodium 137 mmol/L (135-145)
[2024-04-15 07:07] VITALS: BP 136/70; PULSE 74; RESP 18; TEMP 37.2; O2SAT 98
[2024-04-15 07:24] VITALS: BP 136/70; PULSE 74; O2SAT 98
[2024-04-15] MEDS: buPROPion HCl XL 300 MG TAB.ER.24H PO (08:10)
[2024-04-15] MEDS: Apixaban 2.5 MG TABLET PO ×2 (08:11→22:00)
[2024-04-15] MEDS: predniSONE 20 MG TABLET 40 MG PO (08:11)
[2024-04-15] MEDS: Amiodarone HCL 200 MG TABLET 100 MG PO (08:12)
[2024-04-15] MEDS: Furosemide 40 MG/4 ML VIAL IVPUSH ×2 (08:13→17:17)
[2024-04-15] MEDS: 0.9 % Sodium Chloride Flush 3 ML SYRINGE IVFLUSH ×3 (08:13→21:17)
--- NOTE | 2024-04-15 11:04 | PM.DS ---
DS: Providers Provider Date of Service: 04/16/24 Date of admission: 04/13/24 16:51 Date of discharge: 04/16/24 Primary care physician: Na White MD Consults: 04/13/24 16:50 Consult to Nephrology Routine Consulting Provider: [facility] Reason for consultation: esrd 04/13/24 16:58 Consult to Neurology Routine Consulting Provider: [facility] Reason for consultation: tremor, falls DS: Diagnosis Discharge Diagnosis (1) Essential tremor: Status: Acute (2) Falls: Status: Acute (3) Acute exacerbation of CHF (congestive heart failure): Status: Acute (4) Acute bronchitis: Status: Acute DS: Summary Hospital Course Hospital Course: Admission note HPI 78M PMH ESRD, paifb, hld, history of dm, - now appears resolved, orthostatic hypotension, hypothyroid presented with sob. Patient states he has had several days of shortness of breath on minimal exertion with nonproductive cough. Denies any fevers or chills or chest pain. Shortness breath significantly worse on day of presentation so he came to the hospital. Of note patient has been also unsteady over the last few weeks and has had multiple falls including 1 day prior to presentation where he fell on his behind. Hospital course The patient was treated for Shortness of breath from Acute bronchitis and acute on chronic diastolic CHF inpatient with end-stage renal disease. He was treated with IV Lasix, Hemodialysis, azithromycin and prednisone with as needed nebulizer as CT chest not showing signs c/w amio toxicity which was restarted. He was weaned off O2 and was able to participate with PT who recommended short term rehab but the patient wants to go home and have home PT. as he has recent frequent fall. Will be discharged on Prednisone and Mucinex. He was seen by Neurology for tremors. Started on Primidone. discussed possible interaction with Eliquis which he understands and agree with. for History of diabetes his A1c was found below 5 and Glipizide was discontinued at time of discharge. Discharge plan Watch salt and water intake Take Prednisone as prescribed Cough medicine as needed PRimidone for tremors Discontinue Glipizide. increase activity as tolerated with home physical therapy Time Attestation Discharge Coordination Time (in mins): 38 Quality: Safe Use of Opioids Does Pt have an Active Cancer Diagnosis on the Problem List?: No Quality: Stroke Does the patient have a stroke diagnosis?: No Physical Exam Vital Signs: Vital Signs: Last Vital Signs Temp 99.0 F 04/15/24 07:07 Pulse 74 04/15/24 07:24 Resp 18 04/15/24 07:07 BP 136/70 04/15/24 07:24 Pulse Ox 98 04/15/24 07:24 O2 Del Method Room Air 04/15/24 07:07 BMI result Body Mass Index 32.7 Const: Other: Constitutional : interactive, not in distress Cardiovascular : no JVP, no lower extremity edema Respiratory : bilateral chest movement, not in resp distress Gastrointestinal: soft, lax, Non tender Skin : Warm, Dry Neurological : Alert & oriented , No focal deficit DS: Data Data Completed and Pending Completed studies during hospitalization [Text1]: Procedures Performance of Urinary Filtration, Intermittent, Less than 6 Hours Per Day (02/14/24) Labs on day of discharge: Laboratory Results - last 24 hr 04/15/24 05:49 WBC 9.4 RBC 2.24 L Hgb 7.9 L Hct 25.0 L MCV 111.6 H MCH 35.3 H MCHC 31.6 RDW 15.7 Plt Count 145 L D MPV 9.3 L Absolute Nucleated RBC 0.000 Nucleated RBC % (auto) 0.0 Sodium 137 Potassium 4.3 D Chloride 103 Carbon Dioxide 23 Anion Gap 15 BUN 57 H Creatinine 7.30 H* Estim Creat Clear Calc 9.4 Estimated GFR 7 Random Glucose 155 H Calcium 7.[address] scan - chest: Radiologist's impression: ITS Impressions Chest X-Ray 04/13/24 10:30 IMPRESSION: No acute airspace disease. Consider chronic interstitial lung disease. Mild superimposed interstitial lung edema cannot be excluded. Electronically signed by: Ryan Olmedo MD 04/13/2024 10:43 AM [facility] Abdomen/Pelvis CT 04/13/24 13:56 IMPRESSION: Soft tissue contusion/hematoma right lower back/gluteal fat plane. No acute fracture. No hematoma, retroperitoneum. No hemoperitoneum. Coronary artery disease and atherosclerosis disease. Medical renal disease. Bilateral renal cysts. Lipid rich adenoma, bilaterally. Fat-containing periumbilical and inguinal hernias.. Fleischner guidelines were followed. Electronically signed by: Ryan Olmedo MD 04/13/2024 03:30 PM EST RP Chest CT 04/13/24 13:56 IMPRESSION: No acute cardiopulmonary process seen. Right basilar bandlike atelectasis likely old inflammatory process Fleischner guidelines were followed. Electronically signed by: Deandre Lunsford MD 04/13/2024 05:08 PM EST RP Discharge Plan Discharge Anticipated Discharge Date/Time: 04/15/24 10:42 Patient Disposition: Home Health Service Discharge Diagnosis: Falls Heart failure exacerbation Bronchitis Referrals: patrick [Other] - 1 Week Na White MD [Primary Care Provider] - 1 Week Discharge Medications: New primidone 50 mg Tablet 25 mg PO BEDTIME Qty: 90 0RF prednisone 20 mg Tablet 40 mg PO DAILY Qty: 8 0RF guaifenesin [Mucinex] 600 mg Tablet Extended Release 12hr 600 mg PO BID Qty: 14 0RF Continued amiodarone 200 mg tablet 100 mg PO DAILY 90 Days Qty: 45 3RF atorvastatin 20 mg tablet 20 mg PO BEDTIME torsemide 20 mg tablet 40 mg PO SUTUTHSA Rx Instructions: non dialysis days, sun, tues, thurs, sat. midodrine 10 mg tablet 10 mg PO MOWEFR Rx Instructions: prior to dialysis acetaminophen 500 mg Tablet 500 mg PO DAILY PRN (Reason: Pain) bupropion HCl [Wellbutrin XL] 300 mg tablet extended release 24 hr 300 mg PO DAILY levothyroxine 75 mcg capsule 75 mcg PO DAILY@0600 Eliquis 2.5 mg tablet 2.5 mg PO BID glucosamine-chondroitin [Osteo Bi-Flex] 250-200 mg tablet 1 tab PO TIDWM Rx Instructions: give after food/meal melatonin 5 mg capsule 5 mg PO BEDTIME PRN (Reason: Sleep) Discontinued glipizide 2.5 mg tablet extended release 24hr 2.5 mg PO DAILY Qty: 90 3RF Discharge Orders: Discharge Order (Routine); Ordered 04/15/24 Ordered By: Randal Martinez Diet: Diabetic diet Activity on Discharge: As tolerated Stand Alone Forms: Patient Portal Discharge page Print Language: Honduran Care Plan Goals: Watch salt and water intake Take Prednisone as prescribed Cough medicine as needed PRimidone for tremors Discontinue Glipizide. it carries a risk of low blood sugar and your sugar control is much better now increase activity as tolerated with home physical therapy Health Concerns: Falls Bronchitis heart failure Plan of Treatment: Steroids, cough medicine Primidone for tremors Assessment: as above Discharge Date/Time: 04/16/24 11:33
--- NOTE | 2024-04-15 12:51 | P.PNNP_ITS ---
Subjective Subjective Date of Service: 04/15/24 Interval history: Feels improved. Due HD this AM. All recent data reviewed Physical Exam 2 Vital Signs: Vital Signs: Last Vital Signs Temp 99.0 F 04/15/24 07:07 Pulse 74 04/15/24 07:24 Resp 18 04/15/24 07:07 BP 136/70 04/15/24 07:24 Pulse Ox 98 04/15/24 07:24 O2 Del Method Room Air 04/15/24 07:07 BMI result Body Mass Index 32.7 Const: General: comfortable and no acute distress O rientation/consciousness: patient oriented x3 HEENT: Head: Yes normocephalic Mouth: Normal oral and palatal mucosa present Eyes: EOM: EOMs intact bilaterally Neck: Neck: Yes supple Resp: Auscultation: clear to auscultation bilaterally Cardio: Jugular venous distension: no JVD Rate: regular rate GI: Palpation (GI): Soft to palpation Auscultation: normal bowel sounds Neuro: General: patient oriented x3 and moves all extremities Objective Data Labs 04/15/24 05:49 04/15/24 05:49 Labs: Laboratory Results - last 24 hr 04/15/24 05:49 WBC 9.4 RBC 2.24 L Hgb 7.9 L Hct 25.0 L MCV 111.6 H MCH 35.3 H MCHC 31.6 RDW 15.7 Plt Count 145 L D MPV 9.3 L Absolute Nucleated RBC 0.000 Nucleated RBC % (auto) 0.0 Sodium 137 Potassium 4.3 D Chloride 103 Carbon Dioxide 23 Anion Gap 15 BUN 57 H Creatinine 7.30 H* Estim Creat Clear Calc 9.4 Estimated GFR 7 Random Glucose 155 H Calcium 7.5 L Procedures Date of Service Date of Service: 04/15/24 Assessment & Plan Assessment and plan (1) End stage renal disease on dialysis: Status: Acute Plan ESRD on HD- Usually gets HD on MWF; Had HD yesterday Shall dialyze today to get him back to schedule Renal Diet; Phos binders with meals Needs to reduce dry weight C/W rest of current management Progress Note: Quality Stroke Does the patient have a stroke diagnosis?: No
--- NOTE | 2024-04-15 13:54 | W.MHC.F2F ---
Service Date Service Date: 04/15/24 Encounter Date of encounter: 04/15/24 Reasons for Services Signs and symptoms assessed: physical deconditioning Reason for physical therapy: home safety and mobility and therapeutic exercises Homebound: Leaving the home is medically contraindicated at this time without the asist of a device and/or another person due th the listed conditions above and below. Reason homebound: unsteady gait / fall risk Certification: Based on the above findings, I certify that this patient is confined to the home and needs intermittent correction care, physical therapy and/or speech therapy, or continues to need occupational therapy. The patient is under my care, and I have initiated the establishment of the plan of care. The patient will be followed by a physician who will periodically review the plan of care. Time Spent With Patient Time: Total time managing care of this patient today ____ minutes.
--- NOTE | 2024-04-15 14:22 | MHC.CM.PN ---
asks that pt stay one more night as he is too weak for her to take him home by herswelf as he had dyalisis today pt and are aware dc will be tomorrow and are agreeable to same or they will need to file an appeal
[2024-04-15 15:17] VITALS: BP 138/65; PULSE 77; RESP 16; TEMP 36.6; O2SAT 94
[2024-04-15] MEDS: Albuterol/Iprat 2.5/0.5MG 3 ML AMPUL.NEB INHALE (16:41)
[2024-04-15 16:44] VITALS: PULSE 75; RESP 18; O2SAT 98
[2024-04-15] MEDS: Azithromycin 500 MG TABLET PO (17:15)
[2024-04-15 19:58] VITALS: BP 124/23; PULSE 75; RESP 18; TEMP 36.4; O2SAT 97
[2024-04-15] MEDS: Atorvastatin Calcium 20 MG TABLET PO (22:00)
[2024-04-15] MEDS: Primidone 50 MG TABLET 25 MG PO (22:01)
[2024-04-16 03:31] VITALS: BP 101/60; PULSE 76; RESP 18; TEMP 36.7; O2SAT 98
[2024-04-16] MEDS: Levothyroxine Sodium 75 MCG TABLET PO (05:55)
[2024-04-16 07:55] VITALS: BP 132/60; PULSE 76; RESP 18; TEMP 36.1; O2SAT 100
[2024-04-16 08:01] VITALS: BP 132/60; PULSE 76; O2SAT 100
--- NOTE | 2024-04-16 09:24 | MHC.CM.PN ---
Addendum entered by Carole Louis 04/16/24 10:52: CM MET WITH PT AND TO DISCUSS DC PLANNING PTS STATES HE WAS RECENTLY IN REHAB, HE DISCHARGED ON MAL AND FELL THE SAME DAY SHE SAYS HE ALSO FELL ONE MORE TIME BETWEEN THAT DC AND THIS ADMISSION PT STATES HE IS NOT WILLING TO CONSIDER STR AGAIN HE STATES HE FEELS FINE TODAY AND HAS NO CONCERNS ABOUT HIS ABILITY TO GET INTO THE HOME FROM THE CAR WHEN ASKED WHAT HE WILL DO TOMORROW AFTER HD, HE STATES HE WILL USE HIS TRANSFER CHAIR AND SUCK IT UP BUTTERCUP PTS STATES SHE IS EXPECTING A CALL FROM [facility] ON SATURDAY FOR AN IN HOME EVAL SHE SAYS THEY ARE WORKING ON GETTING PT HOME CARE PT WILL DC HOME TODAY WITH RESUMPTION OF HIS [facility] SERVICES AND HD WILL TRANSPORT Original Note: PT CLEARED TO DC HOME TODAY WITH RESUMPTION OF [facility]HABIT [facility] AND FACE TO FACE ORDERS SENT TO [facility] VIA Service Seeking FAMILY TO TRANSPORT
[2024-04-16] MEDS: Amiodarone HCL 200 MG TABLET 100 MG PO (09:44)
[2024-04-16] MEDS: buPROPion HCl XL 300 MG TAB.ER.24H PO (09:45)
[2024-04-16] MEDS: predniSONE 20 MG TABLET 40 MG PO (09:45)
[2024-04-16] MEDS: Apixaban 2.5 MG TABLET PO (09:45)
--- NOTE | 2024-04-16 10:46 | HO.PM.IMPN ---
Subjective Subjective Date of Service: 04/15/24 Interval History: Late Entry from 04/15 patient was planned to dc but did not materialize felt ok , no complaints Review of Systems Review of Systems: Yes all other systems are reviewed and are negative Physical Exam Vital Signs: Vital Signs: Last Vital Signs Temp 97.0 F 04/16/24 07:55 Pulse 76 04/16/24 08:01 Resp 18 04/16/24 07:55 BP 132/60 04/16/24 08:01 Pulse Ox 100 04/16/24 08:01 O2 Del Method Room Air 04/16/24 07:55 BMI result Body Mass Index 32.7 Const: Other: Constitutional : interactive, not in distress Cardiovascular : no JVP, no lower extremity edema Respiratory : bilateral chest movement, not in resp distress Gastrointestinal: soft, lax, Non tender Skin : Warm, Dry Neurological : Alert & oriented , No focal deficit Objective Data Active Medications Acetaminophen (Acetaminophen 325 Mg Tablet) 650 mg PO Q6H PRN PRN Reason: Pain, Mild 1-3,fever,headache Albuterol/Ipratropium (Albuterol/Iprat 2.5/0.5mg 3 Ml Ampul.Neb) 3 ml INHALE RQ4H WHILE AWAKE PRN PRN Reason: sob Last Admin: 04/15/24 16:41 Dose: 3 ml Documented By: BENJAMÍN Amiodarone HCl (Amiodarone Hcl 200 Mg Tablet) 100 mg PO DAILY [facility] Last Admin: 04/16/24 09:44 Dose: 100 mg Documented By: CLOVER Apixaban (Apixaban 2.5 Mg Tablet) 2.5 mg PO BID [facility] Last Admin: 04/16/24 09:45 Dose: 2.5 mg Documented By: CLOVER Atorvastatin Calcium (Atorvastatin Calcium 20 Mg Tablet) 20 mg PO BEDTIME [facility] Last Admin: 04/15/24 22:00 Dose: 20 mg Documented By: KERI Azithromycin (Azithromycin 500 Mg Tablet) 500 mg PO Q24H [facility] Last Admin: 04/15/24 17:15 Dose: 500 mg Documented By: EDNA Bupropion HCl (Bupropion Hcl Xl 300 Mg Tab.Er.24h) 300 mg PO DAILY [facility] Last Admin: 04/16/24 09:45 Dose: 300 mg Documented By: CLOVER Calcium Carbonate (Calcium Carbonate 750 Mg Tab.Chew) 750 mg PO Q4H PRN PRN Reason: Heartburn Furosemide (Furosemide 40 Mg Tablet) 40 mg PO BID@0900,1800 [facility]; Protocol Guaifenesin (Guaifenesin La 600 Mg Tab.Er.12h) 600 mg PO BID [facility] Levothyroxine Sodium (Levothyroxine Sodium 75 Mcg Tablet) 75 mcg PO DAILY@0600 [facility] Last Admin: 04/16/24 05:55 Dose: 75 mcg Documented By: KERI Lidocaine HCl (Lidocaine Hcl 1 % Mpf 2 Ml Vial) 0.5 ml SUBCUT MOWEFR@1645 [facility] Last Admin: 04/15/24 14:20 Dose: Not Given Documented By: EDNA Non-Admin Reason: done in dialysis Magnesium Hydroxide (Milk Of Magnesia 30 Ml Oral.Susp) 30 ml PO DAILY PRN PRN Reason: Constipation Melatonin (Melatonin 3 Mg Tablet) 6 mg PO BEDTIME PRN PRN Reason: Insomnia Midodrine (Midodrine Hcl 10 Mg Tablet) 10 mg PO MOWEFR [facility] Last Admin: 04/15/24 17:21 Dose: Not Given Documented By: EDNA Non-Admin Reason: Pt had morning dialysis Prednisone (Prednisone 20 Mg Tablet) 40 mg PO DAILY [facility] Last Admin: 04/16/24 09:45 Dose: 40 mg Documented By: CLOVER Primidone (Primidone 50 Mg Tablet) 25 mg PO BEDTIME [facility] Last Admin: 04/15/24 22:01 Dose: 25 mg Documented By: KERI Sodium Chloride (0.9 % Sodium Chloride Flush 3 Ml Syringe) 3 ml IVFLUSH QSHIFT [facility] Last Admin: 04/16/24 09:54 Dose: Not Given Documented By: CLOVER Non-Admin Reason: No Access Labs 04/15/24 05:49 04/15/24 05:49 Assessment and Plan (1) Falls: Status: Acute (2) Acute bronchitis: Status: Acute Plan 78M PMH ESRD, paifb, hld, history of dm, - now appears resolved, orthostatic hypotension, hypothyroid presented with sob Shortness of breath Acute bronchitis, acute on chronic diastolic CHF inpatient with end-stage renal disease, IV Lasix, dialysis, azithromycin and prednisone Frequent fall PT eval rec SNF Neuro rec Promidirone Paroxysmal AFib amio, eliquis History of diabetes A1c now below 5 glipized dced Orthostatic hypotension Continue midodrine Hypothyroid Continue levothyroxine DVT prophylaxis on Eliquis Full Code reason for continued hospitalization:still with wheezing, rhonchi Quality Stroke Does the patient have a stroke diagnosis?: No VTE Prior VTE?: No VTE Risk Level:: Medical - moderate - high VTE Device Contraindication: Treatment Not Indicated VTE Drug Contraindication: N/A - Med Ordered
[2024-04-16] MEDS: guaiFENesin LA 600 MG TAB.ER.12H PO (11:15)
[2024-04-16] MEDS: Furosemide 40 MG TABLET PO (11:15)
== END 2024-04-16 11:33 | disposition home health service (06) | DRG 291 ==
LOC: HO.ED 16:42 → HO.EDOVER 16:54 → HO.S3 04-14 05:53
PROVIDERS: Internal Medicine; Admitting Provider Internal Medicine; Emergency Provider Emergency Medicine; PCP Internal Medicine; Visit Provider Student in an Organized Health Care Education/Training Program
DX: I13.2 Hypertensive heart and chronic kidney disease with heart failure and with stage 5 chronic kidney disease, or end stage renal disease (principal); I50.33 Acute on chronic diastolic (congestive) heart failure; N18.6 End stage renal disease; J20.9 Acute bronchitis, unspecified; Z99.2 Dependence on renal dialysis; I95.1 Orthostatic hypotension; G25.0 Essential tremor; R29.6 Repeated falls; D63.1 Anemia in chronic kidney disease; I48.0 Paroxysmal atrial fibrillation; E78.5 Hyperlipidemia, unspecified; E03.9 Hypothyroidism, unspecified; Z20.822 Contact with and (suspected) exposure to COVID-19; Z91.158 Patient's noncompliance with renal dialysis for other reason; Z87.891 Personal history of nicotine dependence; Z79.01 Long term (current) use of anticoagulants; Z79.890 Hormone replacement therapy; Z79.899 Other long term (current) drug therapy
CPT/HCPCS: 0241U; 36415; 71045; 71046; 71250; 74176; 80048; 80053; 82272; 83735; 83880; 84484; 85025; 85027; 85610; 85730; 90999; 93005; 93306; 94640; 97110; 97116; 97162; 99285; J1940; Q9957

== ENCOUNTER → 2024-04-13 10:30 | Outpatient (BNV) | payer MEDICARE, OTHER, SELFPAY | PROVIDERS: PCP Internal Medicine; Visit Provider Radiology Diagnostic Radiology | DX: R06.02 Shortness of breath (principal) | CPT/HCPCS: 71046; 71250; 74176 ==

== ENCOUNTER → 2024-04-13 10:47 | Outpatient (BNV) | payer MEDICARE, OTHER, SELFPAY | PROVIDERS: Admitting Provider Internal Medicine; Emergency Provider Emergency Medicine; PCP Internal Medicine; Visit Provider Internal Medicine | DX: R06.00 Dyspnea, unspecified (principal) | CPT/HCPCS: 93010 ==

== ENCOUNTER 2024-04-13 16:51 | Outpatient (BNV) | payer MEDICARE, OTHER, SELFPAY | END 2024-04-14 07:00 | PROVIDERS: Admitting Provider Internal Medicine; Emergency Provider Emergency Medicine; PCP Internal Medicine; Visit Provider Internal Medicine | DX: I51.7 Cardiomegaly (principal); I34.81 Nonrheumatic mitral (valve) annulus calcification; R94.31 Abnormal electrocardiogram [ECG] [EKG] | CPT/HCPCS: 93010; 93306 ==

== ENCOUNTER 2024-04-13 16:51 | Outpatient (BNV) | payer MEDICARE, OTHER, SELFPAY | END 2024-04-14 03:55 | PROVIDERS: Admitting Provider Internal Medicine; Emergency Provider Emergency Medicine; PCP Internal Medicine; Visit Provider Radiology Diagnostic Radiology | DX: R06.02 Shortness of breath (principal) | CPT/HCPCS: 71045 ==

== ENCOUNTER → 2024-04-13 16:51 | Outpatient (BNV) | payer MEDICARE, OTHER, SELFPAY | PROVIDERS: Admitting Provider Internal Medicine; Emergency Provider Emergency Medicine; PCP Internal Medicine; Visit Provider Internal Medicine | DX: R26.81 Unsteadiness on feet (principal); R29.6 Repeated falls | CPT/HCPCS: 99223; 99232; G0180 ==

== ENCOUNTER → 2024-04-13 16:51 | Outpatient (BNV) | payer MEDICARE, OTHER, SELFPAY | PROVIDERS: Admitting Provider Internal Medicine; Emergency Provider Emergency Medicine; PCP Internal Medicine; Visit Provider Internal Medicine Nephrology | DX: N18.6 End stage renal disease (principal); Z99.2 Dependence on renal dialysis | CPT/HCPCS: 90935 ==

== ENCOUNTER → 2024-04-13 16:51 | Outpatient (BNV) | payer MEDICARE, OTHER, SELFPAY | PROVIDERS: Admitting Provider Internal Medicine; Emergency Provider Emergency Medicine; PCP Internal Medicine; Visit Provider Psychiatry & Neurology Neurology | DX: G25.0 Essential tremor (principal); R29.6 Repeated falls | CPT/HCPCS: 99222 ==